=== PATIENT | female | born 1945 | race Caucasian/White ===

== ENCOUNTER → 2018-06-05 12:29 | Outpatient (CLI) | payer MEDICARE, OTHER, SELFPAY | PROVIDERS: Family Provider Family Medicine; PCP Family Medicine; Referring Provider Nurse Practitioner Adult Health; Visit Provider Nurse Practitioner Adult Health | DX: N39.0 Urinary tract infection, site not specified (principal) | CPT/HCPCS: 87086; 87088; 87186 ==

== ENCOUNTER → 2018-06-19 15:02 | Outpatient (CLI) | payer MEDICARE, OTHER, SELFPAY | PROVIDERS: Referring Provider Nurse Practitioner Adult Health; Visit Provider Nurse Practitioner Adult Health | DX: R10.9 Unspecified abdominal pain (principal); M54.9 Dorsalgia, unspecified | CPT/HCPCS: 87086; 87088 ==

== ENCOUNTER → 2018-08-02 09:15 | Outpatient (CLI) | payer MEDICARE, OTHER, SELFPAY ==
[2018-08-02 10:23] LABS: Hematocrit 44.5 % (37-47); Hemoglobin 14.6 g/dl (12.0-15.0); Mean Corp Hgb Conc 32.8 g/gl (32-36); Mean Corpuscular Hgb 28.1 pg (27.0-32.0); Mean Corpuscular Volume 85.7 fL (81-99); Mean Platelet Vol. 10.3 fl (6.2-12.0); Platelet Count 202 K/mm3 (150-450); RBC Distribution Width CV 12.8 % (11.6-14.6); RBC Distribution Width SD 40.2 fl (35.1-43.9); Red Blood Count 5.19 M/mm3 (4.2-5.4); White Blood Count 6.2 K/mm3 (4.4-11.0)
[2018-08-02 10:24] LABS: Scan Indicated on CBC? Y/N NO
[2018-08-02 10:36] LABS: International Normalized Ratio 1.7; Prothrombin Time (Protime)PT. 20.2 SECONDS (11.7-14.9)
[2018-08-02 10:58] LABS: ALB/GLOB Ratio 1.2 RATIO (0.9-2.4); AST(SGOT) 14 U/L (15-37); Alanine Aminotransfer ALT/SGPT 22 U/L (13-56); Albumin, Serum 3.7 g/dL (3.2-5.0); Alkaline Phosphatase 103 U/L (45-117); Anion Gap 9 (5-15); BUN 17 mg/dL (7-18); BUN/Creat Ratio 19.1 RATIO (10-20); Calcium,Total 8.9 mg/dL (8.5-10.1); Chloride 109 mmol/L (98-107); Cholesterol 180 mg/dL (200); Creatinine, Serum 0.89 mg/dL (0.55-1.02); EST Glomerular Filtration Rate 66 mL/min (>60); Est Glom Filt Rate - Afr Amer 80 mL/min (>60); Globulin 3.1 g/dL (2.2-4.2); Glucose 104 mg/dL (74-106); High Density Lipoprotein 48 mg/dL; Potassium 4.2 mmol/L (3.5-5.1); Protein, Total 6.8 g/dL (6.4-8.2); Sodium Level 144 mmol/L (136-145); Triglycerides 143 mg/dL; Very Low Density Lipoprotein 29 mg/dL (5-40)
[2018-08-02 10:59] LABS: Vitamin D,25 Hydroxy 21.3 ng/mL (29.95-100.01)
== END ==
PROVIDERS: Family Provider Family Medicine; PCP Family Medicine; Visit Provider Family Medicine
DX: I10 Essential (primary) hypertension (principal); I48.91 Unspecified atrial fibrillation
CPT/HCPCS: 36415; 80053; 80061; 82306; 85027; 85610

== ENCOUNTER → 2018-10-26 16:46 | Outpatient (CLI) | payer MEDICARE, OTHER, SELFPAY | PROVIDERS: Family Provider Family Medicine; PCP Family Medicine; Referring Provider Nurse Practitioner Adult Health; Visit Provider Nurse Practitioner Adult Health | DX: R31.9 Hematuria, unspecified (principal) | CPT/HCPCS: 87086; 87088 ==

== ENCOUNTER → 2018-11-08 | Outpatient (CLI) | payer MEDICARE, OTHER, SELFPAY ==
--- NOTE | 2018-11-08 17:10 | CT_ITS ---
STUDY: CT ABDOMEN AND PELVIS WITH AND WITHOUT CONTRAST REASON FOR EXAM: Female, 73 years old. Hematuria RADIATION DOSAGE (If Supplied By Facility): CTDIvol = ( 33.24 ) mGy, DLP = ( 3925.58 ) mGycm TECHNIQUE: Transaxial images were obtained from the dome of the diaphragm to the symphysis pubis without oral contrast. 100 IV Isovue 300 was administered. Sagittal and coronal images were reconstructed. Individualized dose optimization techniques were used for this CT. COMPARISON: None. FINDINGS: The visualized lung bases are unremarkable. The visualized portions of the heart are within normal limits. There is decreased attenuation of the liver consistent with steatosis. Multiple hepatic cysts, the largest in the left hepatic lobe measuring up to 6 cm. Normal gallbladder and extrahepatic biliary system. Normal spleen. Normal pancreas. Normal bilateral adrenal glands. Bilateral nonobstructing renal stones, the largest measuring up to 8 mm on the right. Subcentimeter right renal cyst. Normal visualized stomach. Normal small intestine. There are multiple colonic diverticula consistent with diverticulosis. The appendix is visualized and appears normal. Normal abdominal aorta. Normal inferior vena cava. Normal retroperitoneum. Normal urinary bladder. Normal abdominal wall. Right hip arthroplasty. Degenerative lumbar changes. CT/CT Abd/Pelvis W/WO Contrast IMPRESSION: No evidence of enhancing renal mass or acute obstructive uropathy. Nonobstructing bilateral renal stones and small right renal cyst. Electronically Signed: Iron Noriega MD at 8:49 EDT Tel , Service support ,
[2018-11-08 17:26] LABS: EGFR FINGERSTICK > 60.0000 mL/min (>60)
== END | disposition home or self-care (01) ==
LOC: CT 17:07
PROVIDERS: Family Provider Family Medicine; PCP Family Medicine; Referring Provider Nurse Practitioner Adult Health; Visit Provider Nurse Practitioner Adult Health
DX: R31.9 Hematuria, unspecified (principal)
CPT/HCPCS: 74178; Q9967

== ENCOUNTER → 2020-01-07 09:18 | Outpatient (CLI) | payer MEDICARE, OTHER, SELFPAY ==
--- NOTE | 2020-01-07 09:33 | RAD_ITS ---
STUDY: X-RAY - ABDOMEN/PELVIS REASON FOR EXAM: Female, 74 years old. BILAT KIDNEY STONE F/U, NO COMPLAINTS PER PT TECHNIQUE: Single AP view of the abdomen / pelvis. COMPARISON: Comparison is made with prior examination dated June 28, 2016. FINDINGS: Normal visualized lung bases. There is an unremarkable bowel gas pattern. There is a 6.6 mm calculus in the midportion of the right kidney. There is a 1.6 cm calculus in the lower pole calyx of the left kidney Several rounded calcifications are seen in the central portion of the pelvis. These may represent bladder stones. There are diffuse degenerative changes of the visualized lumbar spine. The patient is status post right total hip replacement. RAD/Abdomen Single View IMPRESSION: Bilateral intrarenal calculi more prominent on the left side. Findings suggestive of bladder calculi. Electronically Signed: Andrés Muse, at 10:06 EDT , Service support ,
[2020-01-07 10:39] LABS: Anion Gap 5 (5-15); BUN 19 mg/dL (7-18); BUN/Creat Ratio 21.2 RATIO (10-20); Calcium,Total 9.2 mg/dL (8.5-10.1); Chloride 108 mmol/L (98-107); EST Glomerular Filtration Rate 66 mL/min (>60); Est Glom Filt Rate - Afr Amer 79 mL/min (>60); Glucose 99 mg/dL (74-106); Potassium 3.9 mmol/L (3.5-5.1); Sodium Level 142 mmol/L (136-145)
== END ==
PROVIDERS: PCP Family Medicine; Referring Provider Nurse Practitioner Adult Health; Visit Provider Nurse Practitioner Adult Health
DX: N20.9 Urinary calculus, unspecified (principal)
CPT/HCPCS: 36415; 74018; 80048

== ENCOUNTER → 2020-08-12 10:17 | Outpatient (CLI) | payer MEDICARE, OTHER, SELFPAY ==
[2020-08-12 12:34] LABS: Anion Gap 3 (5-15); BUN 18 mg/dL (7-18); BUN/Creat Ratio 17.6 RATIO (10-20); Calcium,Total 9.3 mg/dL (8.5-10.1); Chloride 107 mmol/L (98-107); Cholesterol 165 mg/dL (200); Creatinine, Serum 1.02 mg/dL (0.55-1.02); EST Glomerular Filtration Rate 56 mL/min (>60); Est Glom Filt Rate - Afr Amer 68 mL/min (>60); Glucose 102 mg/dL (74-106); High Density Lipoprotein 63 mg/dL; Potassium 4.4 mmol/L (3.5-5.1); Sodium Level 142 mmol/L (136-145); Triglycerides 75 mg/dL; Very Low Density Lipoprotein 15 mg/dL (5-40)
[2020-08-12 12:36] LABS: Vitamin D,25 Hydroxy 31.5 ng/mL
== END ==
PROVIDERS: PCP Family Medicine; Referring Provider Family Medicine; Visit Provider Family Medicine
DX: E78.5 Hyperlipidemia, unspecified (principal); E66.9 Obesity, unspecified
CPT/HCPCS: 36415; 80048; 80061; 82306

== ENCOUNTER → 2020-09-02 11:45 | Outpatient (CLI) | payer MEDICARE, OTHER, SELFPAY ==
--- NOTE | 2020-09-02 | BRBX_PTH ---
PATIENT: HOLLI SEVILLA [facility] U#:[id number] AGE/SX: 80/F ROOM: RE09/02/[address]: Dr. Sarita Johnson MD : 1945 BED: DIS: SPEC #: [id number] RECD: 09/02/20 12:33 STATUS: JOBY REJossy #: [id number] ALLEN: 09/02/20 00:[address]: Sarita Johnson DEPT: SURGICAL PATHOLOGY RECD BY: Jose F Morales ENTERED: 09/02/20 12:34 SP TYPE: BREAST BX OTHR DR: Dr. Meliton Lindsey MD Tissues: Right breast, NOS Procedures: Surgery Specimen Level IV HEADER OPERATION: Right breast biopsy PRE-OP DIAGNOSIS: Right breast mass TISSUE SUBMITTED: Right breast FIXATION TIME: 10 hours MICROSCOPIC DIAGNOSIS Right breast, core biopsy: Invasive ductal carcinoma with the following characteristics: Maximal length - 4.6 millimeters Nuclear grade - 1/3 See comment. AM:cecilio 09/03/2020 COMMENT ER/IN/Wct9qzb studies are being performed on sections of tumor and the results from this study will be reported separately ([id number]). MICROSCOPIC DESCRIPTION Slides are reviewed. GROSS DESCRIPTION Received in fixative is one container labeled with the patient's name and designated right breast mass. The specimen consists of multiple irregular and elongated fragments of light english soft tissue that in aggregate measure 2 x 1 x 0.1 cm. The specimen is totally submitted in one cassette. / AM:cecilio 09/02/20 TC:0 CPT: 47193
--- NOTE | 2020-09-02 | IMM_PTH ---
PATIENT: HOLLI SEVILLA LOC: [facility] U#:[id number] AGE/SX: 80/F ROOM: RE09/02/[address]: Dr. Sarita Johnson MD : 1945 BED: DIS: SPEC #: [id number] RECD: 09/03/20 10:38 STATUS: JOBY REQ #: [id number] ALLEN: 09/02/20 00:[address]: Sarita Johnson DEPT: IMMUNOHISTOCHEMISTRY RECD BY: Yamilet Butterfield ENTERED: 09/03/20 10:39 SP TYPE: IMMUNO OTHR DR: Dr. Meliton Lindsey MD Tissues: Right breast, NOS Procedures: CALPONIN-1 (add) CK5-6 (add) CK8 (add) HATHAWAY-2 (add) E-CAD (add) HER2 MENDEL (add) KI-67 (add) P53 (add) DE (add) P40 (add) ER (initial) PHYSICIAN & INSTITUTION [address] [address] SPECIMEN INFORMATION: Tissue Source: Right breast Clinical Info: Right breast mass Specimen Number: [id number] CPT code: 12082, 55946 x7, 25765 x3 METHODOLOGY: Deparaffinized sections of prefer/formalin-fixed tissue or PAP/DQ stained slides are incubated with monoclonal/polyclonal antibodies/oligonucleotide probes. Localization is made via biotin free immunoperoxidase method. Appropriate controls are performed and reacted as expected. Results on target cell population are indicated in the following table: RESULTS: ANTIBODY / CLONE RESULT P53 (DO-7) negative Ki-67 (30-9) positive, low CK8 (01jtbbY01) positive CK5-6 (D5 & 1684) negative Calponin-1 (JY664J) negative P40 (BC28) negative E-Cad (ECH-6) positive HATHAWAY-2 (SP21) positive MORPHOMETRIC ANALYSIS ER (clone 6F11) >95%, strong intensity DE (clone 16/1E2) >95%, strong intensity Her-2Neu (clone CB11) 0 The prognostic test for HER2 is performed on formalin-fixed paraffin embedded tissue. A 3+ (positive) staining pattern is defined as intense, homogeneous, complete, circumferential membranous staining in >10% of contiguous tumor cells. A similar weak (2+) staining pattern is interpreted as equivocal. VILMA follow-up testing is recommended for all equivocal cases. Positivity/negativity for ER/DE is reported if > or < 1% of the tumor cells are immuno- reactive, respectively. The ASCO/CAP criteria is used for scoring. Reference: Journal of Clinical Oncology, 2013; 31:4240-9251 & 2010; 16:3202-2974. Duration of fixation: 10 Hrs; Sample Adequate: Yes. These assays have not been validated on decalcified tissues. Results should be interpreted with caution given the likelihood of false negativity on decalcified specimens. These tests were developed and their performance characteristics determined by [facility]. They may not have been cleared or approved by the U.S. Food and Drug Administration. The FDA has determined that such clearance or approval is not necessary. The above immunohistochemical/dualISH markers are ordered and reviewed by the Pathologist. INTERPRETATION: Right breast, core biopsy: Invasive ductal carcinoma, nuclear grade 1. Positive for estrogen receptors (favorable prognostic indicator). Positive for progesterone receptors (favorable prognostic indicator). Negative for overexpression of KYZ7glh. AM:cecilio 09/04/2020
== END ==
PROVIDERS: PCP Family Medicine; Referring Provider Surgery; Visit Provider Surgery
DX: R89.7 Abnormal histological findings in specimens from other organs, systems and tissues (principal)
CPT/HCPCS: 88305; 88341; 88342

== ENCOUNTER 2020-09-18 07:18 | Day surgery (SDC) | payer MEDICARE, OTHER, SELFPAY ==
[2020-08-27 14:28] VITALS: BMI 30.8
[2020-09-11 14:08] VITALS: BMI 31.0
[2020-09-18] VITALS (7 sets, daily range): BP systolic 113–130; BP diastolic 59–78; PULSE 61–68; RESP 16–18; TEMP 36.3–36.6; O2SAT 97–99; BMI 30.3
--- NOTE | 2020-09-18 | AXNB_PTH ---
PATIENT: HOLLI SEVILLA LOC: [facility] U#:[id number] AGE/SX: 75/F ROOM: RE09/18/[address]: Dr. Sarita Johnson MD : 1945 BED: DIS: 09/18/2020 SPEC #: [id number] RECD: 09/18/20 11:34 STATUS: JOBY REJossy #: [id number] ALLEN: 09/18/20 00:[address]: Sarita Johnson DEPT: SURGICAL PATHOLOGY RECD BY: Yamilet Butterfield ENTERED: 09/18/20 12:01 SP TYPE: AX NODE BX OTHR DR: Dr. Meliton Lindsey MD Tissues: A - Axillary lymph node, NOS B - Right breast, NOS C - Right breast, NOS Procedures: Frozen Section (charge) Frozen Section Add'l ([facility]) Surgery Specimen Level IV Surgery Specimen Level V HEADER OPERATION: Right breast stereotactic wire localization lumpectomy with sentinel node biopsy PRE-OP DIAGNOSIS: Invasive ductal carcinoma right breast TISSUE SUBMITTED: A - Axillary sentinel lymph nodes right breast, FS at 1131, B - Right breast lumpectomy with wire, double short stitch - superior, double long - medial, long single- lateral, C??Additional anterior margin right breast, short stitch - new anterior margin, long stitch - lateral part of specimen FROZEN SECTION DIAGNOSIS A. Right axillary sentinel lymph nodes, biopsy: Two out of two lymph nodes negative for carcinoma. AM: 09/18/2020 MICROSCOPIC DIAGNOSIS A. Right axillary sentinel lymph nodes, biopsy: Two out of two lymph nodes negative for carcinoma. See comment. B. Right breast, lumpectomy: Invasive ductal carcinoma. See cancer checklist below. See comment. C. Additional anterior margin, biopsy: Ductal carcinoma in situ. See comment. AM: 09/23/2020 COMMENT A. Immunohistochemistry ([id number]) supports the above diagnosis. B. Immunohistochemistry ([id number]) supports the above diagnosis. C. Sections show ductal carcinoma in situ located at 1.5 mm from its new anterior margin. Atypical intraductal hyperplasia suspicious for ductal carcinoma in situ is noted at the new anterior margin (block 1 toward lateral margin). This area of extension to the margin measures approximately 1 mm in greatest dimension. INVASIVE BREAST CANCER SUMMARY: Procedure: Lumpectomy excision with wire guidance Specimen: Type: Partial breast, lumpectomy. Size: 7 x 4 x 2 cm Site: Right breast Invasive Tumor: Size of tumor: 0.5 x 0.5 x 0.5 cm Histologic type: Invasive ductal carcinoma. Focality: Single focus of carcinoma Histologic grade (Luca grade): Glandular/tubular differentiation score: 2 Nuclear pleomorphism score: 2 Mitotic count score: 1 Overall grade: 1 (score of 5) Ductal Carcinoma In Situ: Present Estimated quantification: 25% Number of blocks: 6 blocks (inclusive of specimens B & C) Architectural pattern: Cribriform and comedo types Nuclear grade: 2 Necrosis: Present Lobular Carcinoma In Situ: Not present Tumor extension: Skin: No skin present Nipple: No nipple present. Skeletal muscle: Not present Margins: Distance of Invasive Carcinoma from closest margin: 0.5 cm from anterior margin Distance of in situ carcinoma from closest margin: 1.5 mm from anterior margin (specimen C) Lymph Nodes: Total number of lymph nodes examined: 2 Total number of sentinel lymph nodes examined: 2 No evidence of macrometastases, micrometastases or isolated tumor cells. Additional pathologic findings: Changes of previous biopsy. Usual intraductal hyperplasia with multifocal atypical intraductal hyperplasia. Focal atypical lobular hyperplasia. Fibrocystic change. Ancillary Studies: Previously performed on same tumor ([id number] / [id number]) ER: Positive (>95%, strong intensity) AK: Positive (>95%, strong intensity) Ela1uhb: Negative (0) Microcalcifications: Present in neoplastic and non-neoplastic tissue. Clinical History: Mass PATHOLOGIC STAGE: T1a N0(sn) Mx The above summary is in compliance with [employer] (CAP) Cancer Protocols Checklist and [place] Joint Committee on Cancer (AJCC), Staging Manual, 8th Ed. This case was reviewed and diagnosis discussed with Dr. Johnson on 09/26/[address] Huber. Case has been reviewed in consultation with Dr. Huber who concurs with the above diagnosis. IDC:SJ MICROSCOPIC DESCRIPTION Slides are reviewed. GROSS DESCRIPTION A - Received fresh for frozen section diagnosis labeled with the patient's name is a specimen designated axillary sentinel lymph node right breast. The specimen consists of two pieces of english-yellow fibroadipose tissue measuring 1.5 and 2.3 cm in greatest dimension. Two lymph nodes are identified. Both lymph nodes are bisected and submitted entirely for frozen section diagnosis in two cassettes. Sections are submitted after additional fixation. / AM:cecilio 09/19/20 B - Received fresh for intraoperative consultation labeled with the patient's name is a specimen designated lumpectomy with wire localization right breast. The specimen consists of a piece of fibroadipose tissue with needle localization measuring 7 x 4 x 2 cm. The specimen is oriented as follows: double short stitch - superior, double long - medial, long single- lateral. The specimen is inked as follows: anterior - yellow, posterior - black, superior - blue, inferior - green, medial - red and lateral - orange. Serial sections reveal a small indurated mass measuring 0.5 x 0.5 x 0.5 cm. This mass is 0.5 cm away from the closest anterior margin and 1 cm away from the second closest inferior margin. This information is conveyed to the surgeon intraoperatively. Sections of the rest of the specimen reveal english-yellow adipose cut surfaces mixed with scant fibrous area. Mosaic Worker sections are submitted in ten cassettes as follows: 1 - perpendicular medial, lateral and posterior margins, 2 - perpendicular superior and inferior margins, 3-6 - entire tumor with closest anterior margin, 7-10 - Mosaic Worker sections away from the tumor. The entire tumor is submitted. Sections are submitted after additional fixation. About 90% of the specimen is submitted. / SJ:cecilio 09/19/20 C - Received in fixative is one container labeled with the patient's name and designated additional anterior margin right breast. The specimen consists of a piece of adipose tissue measuring 3 x 2.5 x 0.7 cm. The specimen is oriented by two sutures, short suture - new anterior margin, long suture - lateral margin. The specimen is inked as follows: new anterior margin - black, old margin - blue, lateral portion - orange, medial portion - red. The specimen is serially sectioned and does not reveal any mass lesion. The entire specimen is submitted in three cassettes. Cassette 1 contains the most lateral portion of the specimen and cassette 3 contains the most medial portion of the specimen. Sections are submitted after additional fixation. / SJ:cecilio 09/19/20 TC:0 CPT: 95895 x2, 32307, 71753, 88167
--- NOTE | 2020-09-18 | IMM_PTH ---
PATIENT: HOLLI SEVILLA LOC: [facility] [place] U#:[id number] AGE/SX: 75/F ROOM: RE09/18/[address]: Dr. Sarita Johnson MD : 1945 BED: DIS: 09/18/2020 SPEC #: [id number] RECD: 09/23/20 11:12 STATUS: JOBY REQ #: [id number] ALLEN: 09/18/20 00:[address]: Sarita Johnson DEPT: IMMUNOHISTOCHEMISTRY RECD BY: Yamilet Butterfield ENTERED: 09/23/20 11:14 SP TYPE: IMMUNO OTHR DR: Dr. Meliton Lindsey MD Tissues: A - Axillary lymph node, NOS B - Right breast, NOS Procedures: E-CAD (initial) CK7 (add) E-CAD (add) Pankeratin (add) CK7 (initial) PHYSICIAN & INSTITUTION [place] [address] SPECIMEN INFORMATION: Tissue Source: A - Right axillary sentinel lymph nodes, B - Right breast Clinical Info: Invasive ductal carcinoma right breast Specimen Number: [id number] A1, A2, B7, B8 CPT code: 46695 x2, 55591 x4 METHODOLOGY: Deparaffinized sections of prefer/formalin-fixed tissue or PAP/DQ stained slides are incubated with monoclonal/polyclonal antibodies/oligonucleotide probes. Localization is made via biotin free immunoperoxidase method. Appropriate controls are performed and reacted as expected. Results on target cell population are indicated in the following table: RESULTS: ANTIBODY / CLONE RESULT Block A1 CK7 (OV-TL12/30) negative AE1-3 (AE1/AE3/PCK26) negative Block A2 CK7 (OV-TL12/30) negative AE1-3 (AE1/AE3/PCK26) negative Block B7 E-Cad (ECH-6) negative Block B8 E-Cad (ECH-6) negative These tests were developed and their performance characteristics determined by [facility]. They may not have been cleared or approved by the U.S. Food and Drug Administration. The FDA has determined that such clearance or approval is not necessary. The above immunohistochemical/dualISH markers are ordered and reviewed by the Pathologist. INTERPRETATION: A. Right axillary sentinel lymph nodes, biopsy: Two out of two lymph nodes negative for carcinoma. B. Right breast, lumpectomy: Invasive ductal carcinoma. Focal atypical lobular hyperplasia. Ductal carcinoma in situ. AM:cecilio 09/24/2020
--- NOTE | 2020-09-18 07:44 | HP_ITS ---
Intake Intake Visit Reasons: Discuss Surgery Chief Complaint: Discuss breast biopsy results/surgery Industrial Ecology Technician Required: No Is patient in pain?: No Allergies ciprofloxacin Allergy (Unknown, Verified 09/08/20 12:27) unknown Sulfa (Sulfonamide Antibiotics) Allergy (Unknown, Verified 09/08/20 12:27) unknown Medications ascorbic acid (vitamin C) 1,000 mg tablet 1 g PO Q6H 08/27/20 [History Confirmed 09/08/20] calcium-magnesium 300 mg-300 mg tablet 1 tab PO DAILY 08/27/20 [History Confirmed 09/08/20] cholecalciferol (vitamin D3) 25 mcg (1,000 unit) capsule 25 mcg PO DAILY 08/27/20 [History Confirmed 09/08/20] diltiazem HCl 240 mg capsule,extended release 24 hr, controlled 240 mg PO DAILY cap 08/27/20 [History Confirmed 09/08/20] glucosamine HCl 500 mg tablet 500 mg PO DAILY 08/27/20 [History Confirmed 09/08/20] methenamine hippurate 1 gram tablet 1 g PO BID tab 08/27/20 [History Confirmed 09/08/20] nitrofurantoin monohydrate/macrocrystals 100 mg capsule 100 mg PO ONCE cap 08/27/20 [History Confirmed 09/08/20] omega-3 fatty acids 500 mg capsule 500 mg PO DAILY 08/27/20 [History Confirmed 09/08/20] pravastatin 80 mg tablet 80 mg PO DAILY tab 08/27/20 [History Confirmed 09/08/20] sertraline 50 mg tablet 50 mg PO DAILY tab 08/27/20 [History Confirmed 09/08/20] sucralfate 1 gram tablet 1 g PO QACHS tab 08/27/20 [History Confirmed 09/08/20] trazodone 50 mg tablet 50 mg PO QHS tab 08/27/20 [History Confirmed 09/08/20] warfarin 2 mg tablet 2 mg PO DAILY tab 08/27/20 [History Confirmed 09/08/20] [facility], LAT[facility] Medical History (Updated 09/08/20 @ 14:[address] Sarita Johnson MD) Abnormal mammogram of right breast (Acute) Arthritis (Acute) Gastritis (Acute) Hyperlipidemia (Acute) Afib (Acute) Chronic insomnia (Chronic) Cystitis (Acute) Coronary artery dilation (Acute) Depression (Acute) Hypertension (Chronic) Breast cancer, right (Acute) Surgical History (Updated 09/08/20 @ 12:26 by Angely Castano) Hx of breast biopsy (Acute) History of hip replacement, total (Acute) Hx of cataract extraction (Acute) Hx of cholecystectomy (Acute) History of right breast biopsy (Acute ~09/02/20) Family History Mother Hypertension Afib Sister Afib Hypertension Social History (Updated 09/08/20 @ 14:[address] Sarita Johnson MD) Smoking Status: Never smoker second hand exposure: No alcohol intake: current alcohol intake frequency: a few times a month Alcohol type: wine substance use type: does not use diet: Weight Watchers caffeine: Yes what type of physical activity do you participate in: swimming, aerobics frequency: other HPI HPI HPI: HOLLI SEVILLA, is a 75 F who presents to the office today for HPI HPI Surgical H&P: Yes HPI: HOLLI SEVILLA, is a 75 F who presents to the office today for discussion of right breast biopsy pathology. Biopsy results showed invasive ductal carcinoma, grade 1/3, ER/IA greater than 95%, HER-2/sonu negative. Patient denies any pain or bleeding at biopsy site. Patient does have some resolving ecchymosis. ROS General General: Yes weight change; no fatigue, colon cancer, breast cancer or weakness HEENT HEENT: No difficulty swallowing, eye injury, eye surgery, swollen glands or hoarseness Endo Endocrine: No thyroid disease, diabetes mellitus, thyroid cancer, Hair loss, heat intolerance or cold intolerance Breast Breast: Yes right breast lump, abnormal mammogram and abnormal US Musc Musculoskeletal: Yes arthritis; no back problems, rheumatoid arthritis, gout or joint pain Cardio Cardiovascular: Yes atrial fibrillation; no pacemaker, heart disease, high blood pressure, heart attack, heart stent, palpitations, shortness of breat with exertion or chest pain Psych Psychiatric: No depression, anxiety or hearing voices Resp Respiratory: No shortness of breath, No sleep apnea, No cough, No COPD, No asthma, No emphysema, No wheezing Gastro Gastrointestinal: No abdominal pain, No nausea or vomiting, No diarrhea, No constipation, No blood in stool, No acid reflux, No hemorrhoids, No ulcers, No gallbladder problem, No black,tarry stools Thomas Hematologic: Yes blood thinners, No blood disorders, No bleeding, No anemia, No blood clots Neuro Neurologic: No system reviewed and no additional complaints, except as docu, No as per HPI, No abnormal walking, No abnormal hearing, No abnormal movements, No abnormal speech, No behavioral changes, No burning sensations, No confusion, No seizure-like activity, No unsteadiness, No dizziness, No localized weakness, No frequent falls, No headache(s), No lack of coordination, No loss of vision, No memory loss, No numbness, No other visual disturbances, No radiating pain, No restless legs, No sensory deficit, No fainting, No tingling, No tremor(s), No weakness, No other Exam Const General: cooperative, comfortable, no acute distress Chest Other: Right breast: Biopsy incisions healing well with Steri's, ecchymosis resolving, protuberant lesion on right nipple (been there for years per patient) Assessment & Plan Problems 1. 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 I have given the patient options for initial surgical treatment. Options are the following: lumpectomy followed by radiation therapy vs. mastectomy vs. mastectomy followed by immediate reconstruction. I have described the procedures to the patient. I have described the advantages and disadvantages of the options, but I have told the patient that among the options, the survival rate for breast cancer is the same. I have told the patient that with all the surgeries that a sentinel lymph node biopsy is required. I have described the procedure of sentinel lymph node biopsy to the patient. I have told the patient that if the biopsy is positive for metastatic disease, then a full axillary lymph node dissection is required. I have told the patient that adjuvant chemotherapy will be required should the lymph nodes reveal metastatic disease. Also, a full lymph node dissection will increase the risk for lymphedema, especially if there are 4 or more lymph nodes positive for metastatic disease and radiation to the axilla is also required. I have told the patient the risks of surgery, including but not limited to: infection, bleeding, scar tissue, seroma and persistent seroma, lymph leak, injury to any blood vessels, injury to any nerves (particularly the long thoracic, the thoracodorsal, and the second intercostal brachial and the resultant sequelae), lymphedema, cosmetic deformity, dysesthesias, wound infections, further surgery (especially if margins are not clear), complications of anesthesia, etc. the patient understands. Pt is planning on a right lumpectomy with stereotactic needle localization, sentinel lymph node biopsy, possible axillary lymph node dissection. Patient will meet with radiation oncology to make sure she understands what radiation entails. Tentatively scheduling for September 18 I have answered all the patient?s questions at this point to her satisfaction and she has no further questions. Greater than 50% of direct patient contact was spent in counseling or coordination of care. I spent 25 minutes counseling the patient on surgical options for treatment and coordinating care. Sarita Johnson M.D. Pager: [phone] [facility] [address] [place] [address], [address] [place] [id number] Office: [phone] p Orders Referrals: Oncology C50.919 Plan Detail Follow Up Patient will let us know after meeting with radiation oncology if she is still would like to have a lumpectomy. 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 delaying the surgery/procedure. It is not possible to know either the risk of delaying the surgery or procedure or chance of getting an infection with perfect accuracy, but a joint decision was made between the patient and the surgeon/proceduralist ?to proceed at this time with the scheduled surgery/procedure as indicated on the consent form. I have examined the patient the following changes are noted: Patient did meet with radiation oncology and want to proceed with the lumpectomy. No other changes.
[2020-09-18] MEDS: Lactated Ringers 1,000 ML 100 ML IV (08:00)
--- NOTE | 2020-09-18 08:00 | NM_ITS ---
PROCEDURE: NUCLEAR MEDICINE Injection Manly Node - RIGHT breast(s). REASON FOR EXAM: Female, 75 years old. Right breast cancer. TECHNIQUE: Manly node localization using radionuclide methods of the RIGHT breast(s) was performed following intravenous administration of 1.1 mCi of of sulfur colloid Tc-99m. FINDINGS: 1.1 mCi of technetium labeled sulfur colloid was injected subcutaneously at the biopsy site in the right breast. NM/Lymph Node Injection Only IMPRESSION: Subcutaneous injection of 1.1 mCi of technetium labeled sulfur colloid at the biopsy site. Electronically Signed: Andrés Muse MD at 9:03 EST , Service support ,
--- NOTE | 2020-09-18 09:30 | BI_ITS ---
SURGICAL BREAST SPECIMEN RADIOGRAPH CLINICAL: Document presence of tissue clip marker in biopsy specimen. FINDINGS: Specimen shows presence of tissue clip marker. Electronically Signed: Andrés Muse MD at 13:05 EST , Service support , BI/Breast Biopsy Specimen
[2020-09-18] MEDS: Bupiv/Epi 0.25% 30 ML Vial ×2 (09:36→12:30)
[2020-09-18] MEDS: Isosulfan Blue 1% 5 ML Vial ×2 (09:47→10:36)
[2020-09-18] MEDS: Cefazolin 2 GM in 0.9% Normal Saline 100 ML IV (10:25)
--- NOTE | 2020-09-18 12:28 | PCM.OPRPT ---
Report of Operation Date of Procedure: 09/18/20 Pre-Operative Diagnosis: Right breast cancer Post-Operative Diagnosis: Same Surgery/Procedure Performed:: 1. Stereotactic needle localization right breast lumpectomy, sentinel lymph node biopsy with nuclear tracer and blue dye. Type of Anesthesia:: General/Supplemental Anesthesiologist: Kofi Del Toro Special Medications: ancef 2gm IV x1 Specimen's removed: 1. Right sentinel lymph nodes?(2 - on frozen), 2. right partial mastectomy, 3. Additional anterior margin Estimated Blood Loss (mL): 10 cc Fluids Replaced: 700 cc Description of Procedure: Patient was prone on the stereotactic biopsy table. Clip was localized. Additional 15 degree views were completed. The clip was localized. The Bard wire was placed additional view showed the wire to be in good location with clip. Needle was removed and wire advanced. Preoperative 2 view mammography was completed. Patient tolerated procedure well. In radiology the breast tissue was injected with TC-9 9 sulfur colloid and preoperative needle localization. >90 minutes later the patient was taken to the operating room and general anesthesia was induced. Localization studies were reviewed. 5 cc of Lymphazurin 1% blue dye was injected in the 4 quadrants periareolar along with 10 cc of normal saline. This was massaged gently for 5 minutes. The right breast and axilla were prepped and draped in usual sterile fashion. A timeout was completed verifying correct patient, procedure, site, positioning, special equipment prior to beginning procedure. Handheld gamma probe was used to identify the location of the hottest spot in the axilla. Prior to the incision, the counts were 0. The incision was made in the blue node was identified. The probe was placed in contact with the node in the 10 count was 3. The bed of the node measured 0 counts. No additional blue or hot nodes were detected. By comparing localization studies with the direction and skin entry of the needle, the probable trajectory and location of the mass was visualized. A curvilinear incision was planned in such a way as to minimize the amount of dissection to reach the mass. Flaps were raised in the location of the wire confirmed. The wire was delivered into the wound. 2 silk [id number] stay suture was placed around the wire and used for traction. Dissection was then taken down circumferentially, taking care to include the entire localization needle and wide margin of grossly normal tissue. The specimen and entire localizing wire were removed. The specimen was oriented and sent to radiology with the localization studies. Confirmation was received that the entire target lesion had been resected. Additional anterior margin was taken. 4 medium clips were placed marking the base of the cavity to help localize for radiation. The wound was irrigated. Hemostasis was checked. The breast and axillary wounds were closed with interrupted sutures of 3-0 Vicryl and subcuticular sutures of 4-0 Monocryl. No attempt was made to close the space. A dressing of fluff gauze and supportive bra placed. The patient tolerated procedure well was taken to the postanesthesia care in stable condition. - Complications none
--- NOTE | 2020-09-18 12:47 | DCINST_ITS ---
Discharge Diet: Light diet - advance as tolerated Discharge Activity: May not drive while taking narcotic pain medications. May shower in (days): 1 Lifting Restrictions: no lifting >15 lb w right arm x 1 week Additional Activity Instructions:: Wear compression bra at night for the first couple nights and during the day for the first week. Call your doctor if your incision/area has: Continuous Slow Oozing, Sudden Increased Bleeding, Increased Pain/ Swelling, Increased Redness, Foul Smelling Discharge, Swelling at the incision site Allergies/Adverse Reactions: Allergies ciprofloxacin Allergy (Unknown, Verified 09/18/20 07:58) unknown Sulfa (Sulfonamide Antibiotics) Allergy (Unknown, Verified 09/18/20 07:58) unknown Medications to take at Discharge ascorbic acid (vitamin C) 1,000 mg tablet 1 g PO BID 08/27/20 cholecalciferol (vitamin D3) 25 mcg (1,000 unit) capsule 25 mcg PO DAILY 08/27/20 diltiazem HCl 240 mg capsule,extended release 24 hr, controlled 240 mg PO DAILY cap 08/27/20 methenamine hippurate 1 gram tablet 1 g PO BID tab 08/27/20 nitrofurantoin monohydrate/macrocrystals 100 mg capsule 100 mg PO ONCE cap 08/27/20 omega-3 fatty acids 500 mg capsule 500 mg PO DAILY 08/27/20 pravastatin 80 mg tablet 80 mg PO DAILY tab 08/27/20 sertraline 50 mg tablet 50 mg PO DAILY tab 08/27/20 trazodone 50 mg tablet 50 mg PO QHS tab 08/27/20 warfarin 2 mg tablet 2 mg PO DAILY tab 08/27/20 Magnesium 500 mg PO DAILY 09/15/20 Multivitamin 1 ea PO DAILY 09/15/20 Hydrocodone Bitart/Apap 5-325 [[place] 5MG-325MG] 1 tab PO Q6H PRN PRN 4 Days #10 tab 09/18/20 The following prescriptions were given: Hydrocodone Bitart/Apap 5-325 [[place] 5MG-325MG] 1 tab PO Q6H PRN PRN 4 Days #10 tab PRN Reason: Pain Transmission Status: Received by [facility] Primary Care Physician: Meliton Lindsey MD [Primary Care Provider] - Test Results: Test results from this visit will be discussed in further detail at your follow- up appointment, if applicable. Please Follow Up With: Sarita Johnson MD - After 5 PM and on weekends call [phone] with any concerns When: Call the office for a follow-up appointment in 2 weeks. Proposed Discharge Date: 09/18/20
[2020-09-18] MEDS: HYDROcodone Bitartrate/Apap 5/325 Tablet PO (14:45)
[2020-09-19 12:02] LABS: Prothrombin Time Fingerstick 10.9 SEC (11.9-14.4)
== END 2020-09-18 15:32 | disposition home or self-care (01) ==
LOC: SDC 07:19 → AC 07:19
PROVIDERS: PCP Family Medicine; Referring Provider Surgery; Visit Provider Surgery
PROC: 0HBV0ZZ Excision of Bilateral Breast, Open Approach (ICD-10-PCS; CPT 19302; principal; 2020-09-18 10:45)
DX: C50.911 Malignant neoplasm of unspecified site of right female breast (principal); M19.90 Unspecified osteoarthritis, unspecified site; I10 Essential (primary) hypertension; F32.9 Major depressive disorder, single episode, unspecified; I48.91 Unspecified atrial fibrillation; E78.5 Hyperlipidemia, unspecified; Z20.828 Contact with and (suspected) exposure to other viral communicable diseases; Z79.899 Other long term (current) drug therapy; Z79.01 Long term (current) use of anticoagulants
CPT/HCPCS: 19301; 38525; 19281; 36416; 38792; 76098; 85610; 87426; 88305; 88307; 88331; 88332; 88341; 88342; A9541; C9803; J7120; Q9968

== ENCOUNTER 2020-10-02 05:31 | Day surgery (SDC) | payer MEDICARE, OTHER, SELFPAY ==
[2020-09-11 14:08] VITALS: BMI 31.0
[2020-09-18 07:59] VITALS: BMI 30.3
[2020-10-02] MEDS: Lactated Ringers 1,000 ML 100 ML IV (06:20)
[2020-10-02 06:22] VITALS: BP 106/71; PULSE 63; RESP 18; TEMP 36.3; O2SAT 98; BMI 30.6
[2020-10-02] MEDS: Cefazolin 2 GM in 0.9% Normal Saline 100 ML IV (07:16)
[2020-10-02] MEDS: Bupiv/Epi 0.25% 30 ML Vial (07:30)
--- NOTE | 2020-10-02 07:30 | BR_PTH ---
PATIENT: HOLLI SEVILLA LOC: [facility] [place] U#:[id number] AGE/SX: 75/F ROOM: RE10/02/[address]: Dr. Sarita Johnson MD : 1945 BED: DIS: 10/02/2020 SPEC #: [id number] RECD: 10/02/20 09:03 STATUS: JOBY REJossy #: [id number] ALLEN: 10/02/20 07:[address]: Sarita Johnson DEPT: SURGICAL PATHOLOGY RECD BY: Yanni Yousif ENTERED: 10/02/20 10:40 SP TYPE: MAMOPLASTY OTHR DR: Dr. Meliton Lindsey MD Tissues: Right breast, NOS Procedures: Surgery Specimen Level V HEADER OPERATION: Re-excision for margins, breast lumpectomy PRE-OP DIAGNOSIS: Plan to re-excise to anterior margin due to DCIS within 1.5 mm TISSUE SUBMITTED: Right breast tissue new margins, short stitch baer new anterior margin, long stitch lateral MICROSCOPIC DIAGNOSIS Right breast, lumpectomy: Changes of previous biopsy. Focal fibrocystic change. Focal intraductal hyperplasia without atypia. Banal microcalcifications. No evidence of malignancy. AM:cecilio 10/06/2020 COMMENT Case has been reviewed in consultation with Dr. Huber who concurs with the above diagnosis. LEE ANN:ANETTE MICROSCOPIC DESCRIPTION Slides are reviewed. GROSS DESCRIPTION Received in fixative is one container labeled with the patient's name and designated right breast tissue new margin. The specimen consists of a piece of adipose tissue measuring 4 x 2 cm and up to 0.7 cm in thickness. The specimen is oriented as follows: Short stitch - new margin and long stitch - lateral. The new margin is inked black, old margin is inked blue, lateral margin is inked orange and medial margin is inked red. The specimen is serially sectioned and submitted entirely in three cassettes from one end to another. Cassette 1 contains the most lateral portion, cassette 3 contains the most medial portion. Sections are submitted after additional fixation. / SJ:cecilio 10/02/2020 TC:3 CPT: 28337
--- NOTE | 2020-10-02 07:57 | PCM.OPRPT ---
Report of Operation Date of Procedure: 10/02/20 Pre-Operative Diagnosis: Right breast cancer Post-Operative Diagnosis: Same Surgery/Procedure Performed:: Right lumpectomy, reexcision of anterior margin engine test cell technician: bro - TORI miguel Type of Anesthesia:: Local MAC Anesthesiologist: Davian Walker Special Medications: Ancef 2 g IV x1 Specimen's removed: New anterior margin right breast Estimated Blood Loss (mL): < 10 cc Fluids Replaced: Per anesthesia Description of Procedure: Patient was brought to the operating room placed supine on the operating table. Timeout was completed verifying correct patient, procedure, site, positioning, special equipment prior to beginning procedure. MAC anesthesia was induced. The right breast prepped and draped in usual sterile fashion. 0.25% Marcaine was used for local anesthesia. This was infiltrated at her previous incision site. Previous incision was reexcised with a 15 blade scalpel. The seroma cavity was suction. Allis was used to wrap the anterior margin. Electrocautery was used to excise the anterior margin. This was marked with a silk suture short for new anterior margin and long for lateral. Hemostasis was achieved. No attempt was made to close the space. Incision was closed with 3-0 Vicryl interrupted sutures subdermally and running 4-0 Monocryl. Dermabond was placed on the skin. Surgical bra and fluffs were placed. Tolerated procedure well was taken to the PACU in stable condition. - Complications none
--- NOTE | 2020-10-02 08:01 | DCINST_ITS ---
Discharge Diet: Light diet - advance as tolerated Discharge Activity: May not drive while taking narcotic pain medications. May shower in (days): 1 Lifting Restrictions: no lifting > 15lb on right x 1 week Call your doctor if your incision/area has: Continuous Slow Oozing, Sudden Increased Bleeding, Increased Pain/ Swelling, Increased Redness, Foul Smelling Discharge, Swelling at the incision site Call your doctor if you observe: Fever of 101 or Higher Allergies/Adverse Reactions: Allergies ciprofloxacin Allergy (Unknown, Verified 10/02/20 06:21) unknown Sulfa (Sulfonamide Antibiotics) Allergy (Unknown, Verified 10/02/20 06:21) unknown Medications to take at Discharge ascorbic acid (vitamin C) 1,000 mg tablet 1 g PO BID 08/27/20 cholecalciferol (vitamin D3) 25 mcg (1,000 unit) capsule 25 mcg PO DAILY 08/27/20 diltiazem HCl 240 mg capsule,extended release 24 hr, controlled 240 mg PO DAILY cap 08/27/20 methenamine hippurate 1 gram tablet 1 g PO BID tab 08/27/20 nitrofurantoin monohydrate/macrocrystals 100 mg capsule 100 mg PO ONCE cap 08/27/20 omega-3 fatty acids 500 mg capsule 500 mg PO DAILY 08/27/20 pravastatin 80 mg tablet 80 mg PO DAILY tab 08/27/20 sertraline 50 mg tablet 50 mg PO DAILY tab 08/27/20 trazodone 50 mg tablet 50 mg PO QHS tab 08/27/20 warfarin 2 mg tablet 2 mg PO DAILY tab 08/27/20 Magnesium 500 mg PO DAILY 09/15/20 Multivitamin 1 ea PO DAILY 09/15/20 Primary Care Physician: Meliton Lindsey MD [Primary Care Provider] - Test Results: Test results from this visit will be discussed in further detail at your follow- up appointment, if applicable. Please Follow Up With: Sarita Johnson MD - After 5:00 on the weekends call [phone] with any concerns When: Follow-up in the office in 1 to 2 weeks call for appointment Proposed Discharge Date: 10/02/20
[2020-10-02 08:16] VITALS: BP 106/71; BP 98/67; PULSE 62; RESP 16; TEMP 35.8; O2SAT 99
[2020-10-02 08:21] VITALS: BP 101/59; BP 106/71; PULSE 69; RESP 16; O2SAT 98
[2020-10-02 08:26] VITALS: BP 105/50; BP 106/71; PULSE 66; RESP 16; O2SAT 99
[2020-10-02 08:31] VITALS: BP 103/80; BP 106/71; PULSE 62; RESP 16; TEMP 35.8; O2SAT 97
--- NOTE | 2020-10-02 08:53 | HP_ITS ---
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 Is patient in pain?: No Allergies ciprofloxacin Allergy (Unknown, Verified 09/08/20 12:27) unknown Sulfa (Sulfonamide Antibiotics) Allergy (Unknown, Verified 09/08/20 12:27) unknown Medications ascorbic acid (vitamin C) 1,000 mg tablet 1 g PO Q6H 08/27/20 [History Confirmed 09/08/20] calcium-magnesium 300 mg-300 mg tablet 1 tab PO DAILY 08/27/20 [History Confirmed 09/08/20] cholecalciferol (vitamin D3) 25 mcg (1,000 unit) capsule 25 mcg PO DAILY 08/27/20 [History Confirmed 09/08/20] diltiazem HCl 240 mg capsule,extended release 24 hr, controlled 240 mg PO DAILY cap 08/27/20 [History Confirmed 09/08/20] glucosamine HCl 500 mg tablet 500 mg PO DAILY 08/27/20 [History Confirmed 09/08/20] methenamine hippurate 1 gram tablet 1 g PO BID tab 08/27/20 [History Confirmed 09/08/20] nitrofurantoin monohydrate/macrocrystals 100 mg capsule 100 mg PO ONCE cap 08/27/20 [History Confirmed 09/08/20] omega-3 fatty acids 500 mg capsule 500 mg PO DAILY 08/27/20 [History Confirmed 09/08/20] pravastatin 80 mg tablet 80 mg PO DAILY tab 08/27/20 [History Confirmed 09/08/20] sertraline 50 mg tablet 50 mg PO DAILY tab 08/27/20 [History Confirmed 09/08/20] sucralfate 1 gram tablet 1 g PO QACHS tab 08/27/20 [History Confirmed 09/08/20] trazodone 50 mg tablet 50 mg PO QHS tab 08/27/20 [History Confirmed 09/08/20] warfarin 2 mg tablet 2 mg PO DAILY tab 08/27/20 [History Confirmed 09/08/20] [facility] Medical History (Updated 09/08/20 @ 14:[address] Sarita Johnson MD) Abnormal mammogram of right breast (Acute) Arthritis (Acute) Gastritis (Acute) Hyperlipidemia (Acute) Afib (Acute) Chronic insomnia (Chronic) Cystitis (Acute) Coronary artery dilation (Acute) Depression (Acute) Hypertension (Chronic) Breast cancer, right (Acute) Surgical History (Updated 09/08/20 @ 12:26 by Angely Castano) Hx of breast biopsy (Acute) History of hip replacement, total (Acute) Hx of cataract extraction (Acute) Hx of cholecystectomy (Acute) History of right breast biopsy (Acute ~09/02/20) Family History Mother Hypertension Afib Sister Afib Hypertension Social History (Updated 09/08/20 @ 14:[address] Sarita Johnson MD) Smoking Status: Never smoker second hand exposure: No alcohol intake: current alcohol intake frequency: a few times a month Alcohol type: wine substance use type: does not use diet: Weight Watchers caffeine: Yes what type of physical activity do you participate in: swimming, aerobics frequency: other HPI HPI HPI: HOLLI SEVILLA, is a 75 F who presents to the office today for HPI HPI Surgical H&P: Yes HPI: HOLLI SEVILLA, is a 75 F who presents to the office today for discussion of right breast biopsy pathology. Biopsy results showed invasive ductal carcinoma, grade 1/3, ER/VA greater than 95%, HER-2/sonu negative. Patient denies any pain or bleeding at biopsy site. Patient does have some resolving ecchymosis. ROS General General: Yes weight change; no fatigue, colon cancer, breast cancer or weakness HEENT HEENT: No difficulty swallowing, eye injury, eye surgery, swollen glands or hoarseness Endo Endocrine: No thyroid disease, diabetes mellitus, thyroid cancer, Hair loss, heat intolerance or cold intolerance Breast Breast: Yes right breast lump, abnormal mammogram and abnormal US Musc Musculoskeletal: Yes arthritis; no back problems, rheumatoid arthritis, gout or joint pain Cardio Cardiovascular: Yes atrial fibrillation; no pacemaker, heart disease, high blood pressure, heart attack, heart stent, palpitations, shortness of breat with exertion or chest pain Psych Psychiatric: No depression, anxiety or hearing voices Resp Respiratory: No shortness of breath, No sleep apnea, No cough, No COPD, No asthma, No emphysema, No wheezing Gastro Gastrointestinal: No abdominal pain, No nausea or vomiting, No diarrhea, No constipation, No blood in stool, No acid reflux, No hemorrhoids, No ulcers, No gallbladder problem, No black,tarry stools Thomas Hematologic: Yes blood thinners, No blood disorders, No bleeding, No anemia, No blood clots Neuro Neurologic: No system reviewed and no additional complaints, except as docu, No as per HPI, No abnormal walking, No abnormal hearing, No abnormal movements, No abnormal speech, No behavioral changes, No burning sensations, No confusion, No seizure-like activity, No unsteadiness, No dizziness, No localized weakness, No frequent falls, No headache(s), No lack of coordination, No loss of vision, No memory loss, No numbness, No other visual disturbances, No radiating pain, No restless legs, No sensory deficit, No fainting, No tingling, No tremor(s), No weakness, No other Exam Const General: cooperative, comfortable, no acute distress Chest Other: Right breast: Biopsy incisions healing well with Steri's, ecchymosis resolving, protuberant lesion on right nipple (been there for years per patient) Assessment & Plan Problems 1. 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 I have given the patient options for initial surgical treatment. Options are the following: lumpectomy followed by radiation therapy vs. mastectomy vs. mastectomy followed by immediate reconstruction. I have described the procedures to the patient. I have described the advantages and disadvantages of the options, but I have told the patient that among the options, the survival rate for breast cancer is the same. I have told the patient that with all the surgeries that a sentinel lymph node biopsy is required. I have described the procedure of sentinel lymph node biopsy to the patient. I have told the patient that if the biopsy is positive for metastatic disease, then a full axillary lymph node dissection is required. I have told the patient that adjuvant chemotherapy will be required should the lymph nodes reveal metastatic disease. Also, a full lymph node dissection will increase the risk for lymphedema, especially if there are 4 or more lymph nodes positive for metastatic disease and radiation to the axilla is also required. I have told the patient the risks of surgery, including but not limited to: infection, bleeding, scar tissue, seroma and persistent seroma, lymph leak, injury to any blood vessels, injury to any nerves (particularly the long thoracic, the thoracodorsal, and the second intercostal brachial and the resultant sequelae), lymphedema, cosmetic deformity, dysesthesias, wound infections, further surgery (especially if margins are not clear), complications of anesthesia, etc. the patient understands. Pt is planning on a right lumpectomy with stereotactic needle localization, sentinel lymph node biopsy, possible axillary lymph node dissection. Patient will meet with radiation oncology to make sure she understands what radiation entails. Tentatively scheduling for September 18 I have answered all the patient?s questions at this point to her satisfaction and she has no further questions. Greater than 50% of direct patient contact was spent in counseling or coordination of care. I spent 25 minutes counseling the patient on surgical options for treatment and coordinating care. Sarita Johnson M.D. Pager: [phone] [facility] [address] [place] [address], [address] [place] [id number] Office: [phone] p Orders Referrals: Oncology C50.919 Plan Detail Follow Up Patient will let us know after meeting with radiation oncology if she is still would like to have a lumpectomy. 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 delaying the surgery/procedure. It is not possible to know either the risk of delaying the surgery or procedure or chance of getting an infection with perfect accuracy, but a joint decision was made between the patient and the surgeon/proceduralist ?to proceed at this time with the scheduled surgery/procedure as indicated on the consent form. I have examined the patient the following changes are noted: Patient did undergo right lumpectomy as well as sentinel lymph node excision. Pathology below Procedure: Lumpectomy excision with wire guidance Specimen: Type: Partial breast, lumpectomy. Size: 7 x 4 x 2 cm Site: Right breast Invasive Tumor: Size of tumor: 0.5 x 0.5 x 0.5 cm Histologic type: Invasive ductal carcinoma. Focality: Single focus of carcinoma Histologic grade (Lutz grade): Glandular/tubular differentiation score: 2 Nuclear pleomorphism score: 2 Mitotic count score: 1 Overall grade: 1 (score of 5) Ductal Carcinoma In Situ: Present Estimated quantification: 25% Number of blocks: 6 blocks (inclusive of specimens B & C) Architectural pattern: Cribriform and comedo types Nuclear grade: 2 Necrosis: Present Lobular Carcinoma In Situ: Not present Tumor extension: Skin: No skin present Nipple: No nipple present. Skeletal muscle: Not present Margins: Distance of Invasive Carcinoma from closest margin: 0.5 cm from anterior margin Distance of in situ carcinoma from closest margin: 1.5 mm from anterior margin (specimen C) Lymph Nodes: Total number of lymph nodes examined: 2 Total number of sentinel lymph nodes examined: 2 No evidence of macrometastases, micrometastases or isolated tumor cells. Additional pathologic findings: Changes of previous biopsy. Usual intraductal hyperplasia with multifocal atypical intraductal hyperplasia. Focal atypical lobular hyperplasia. Fibrocystic change. Ancillary Studies: Previously performed on same tumor ([id number] / [id number]) ER: Positive (>95%, strong intensity) VA: Positive (>95%, strong intensity) [id number]: Negative (0) Microcalcifications: Present in neoplastic and non-neoplastic tissue. Clinical History: Mass PATHOLOGIC STAGE: T1a N0(sn) Mx Discussed with patient plan to reexcise the anterior margin due to DCIS within the 1.5 mm and also possibly at the margin. Patient was agreeable with plan.
[2020-10-02 08:55] VITALS: BP 106/71
== END 2020-10-02 09:15 | disposition home or self-care (01) ==
LOC: SDC 05:31 → AC 05:33
PROVIDERS: PCP Family Medicine; Referring Provider Surgery; Visit Provider Surgery
PROC: (CPT 19301; principal; 2020-10-02 07:15)
DX: C50.911 Malignant neoplasm of unspecified site of right female breast (principal); N62 Hypertrophy of breast; Z20.822 Contact with and (suspected) exposure to COVID-19; F32.9 Major depressive disorder, single episode, unspecified; E78.00 Pure hypercholesterolemia, unspecified; M19.90 Unspecified osteoarthritis, unspecified site; E78.5 Hyperlipidemia, unspecified; I48.91 Unspecified atrial fibrillation; I10 Essential (primary) hypertension; Z79.899 Other long term (current) drug therapy; Z79.01 Long term (current) use of anticoagulants
CPT/HCPCS: 19301; 36416; 85610; 87426; 88305; 88307; C9803; J7120

== ENCOUNTER → 2020-10-21 16:35 | Outpatient (CLI) | payer MEDICARE, OTHER, SELFPAY ==
[2020-09-11 14:08] VITALS: BMI 31.0
[2020-10-16 14:29] VITALS: BMI 30.9
== END ==
PROVIDERS: PCP Family Medicine; Referring Provider Nurse Practitioner Adult Health; Visit Provider Nurse Practitioner Adult Health
DX: N39.0 Urinary tract infection, site not specified (principal)
CPT/HCPCS: 87086; 87088

== ENCOUNTER → 2020-10-31 10:34 | Outpatient (CLI) | payer MEDICARE, OTHER, SELFPAY ==
[2020-09-11 14:08] VITALS: BMI 31.0
[2020-10-16 14:29] VITALS: BMI 30.9
[2020-10-31 12:57] LABS: International Normalized Ratio 1.7; Prothrombin Time (Protime)PT. 19.5 SECONDS (11.7-14.9)
== END ==
PROVIDERS: PCP Family Medicine; Referring Provider Family Medicine; Visit Provider Family Medicine
DX: I48.91 Unspecified atrial fibrillation (principal)
CPT/HCPCS: 36415; 85610

== ENCOUNTER → 2020-12-02 09:18 | Outpatient (CLI) | payer MEDICARE, OTHER, SELFPAY ==
[2020-09-11 14:08] VITALS: BMI 31.0
[2020-11-27 13:39] VITALS: BMI 31.7
--- NOTE | 2020-12-02 09:27 | BD_ITS ---
STUDY: DUAL ENERGY X-RAY ABSORPTIOMETRY / DXA REASON FOR EXAM: Female, 75 years old. Post-menopausal TECHNIQUE: Bone Mineral Density (BMD) measurements of lumbar spine and left hip were obtained. COMPARISON: None. FINDINGS: Lumbar Spine (L1-L4): g/cm2 (1.088) / T-score (-0.9) / Z-score (0.8) Findings are suggestive of normal bone density with a low fracture risk. Left Femur Total: g/cm2 (0.816) / T-score (-1.5) / Z-score (0.2) Left Femoral Neck: g/cm2 (0.814) / T-score (-1.6) / Z-score (0.3) BD/Dexa Bone Density Study IMPRESSION: The patient is considered osteopenic as outlined below according to World [employer]ún[employer] Organization (WHO) criteria with a moderate fracture risk. Reference Information: The T-score is the number of standard deviations above or below the standard which is normal for young adults at their peak bone mineral density. The World Health Organization (WHO) interprets the T-scores as follows: Above -1 Normal bone density Between -1 and -2.5 Osteopenia Equal to / or below -2.5 Osteoporosis As a practical clinical guideline, osteopenia may be graded as follows: Mild -1 through -1.5 Moderate -1.6 through -2.0 Severe -2.1 through -2.4 The Z-score is the number of standard deviations above or below age-matched controls. A Z-score of less than -1.5 would be considered abnormal. References: 1. NIH Osteoporosis and Related Bone Diseases www osteo.org 2. International Society for Clinical Densitometry www iscd.org 3. National Osteoporosis Foundation www nof.org Electronically Signed: Andrés Muse MD at 14:22 EDT , Service support ,
== END ==
PROVIDERS: PCP Family Medicine; Referring Provider Internal Medicine Medical Oncology; Visit Provider Internal Medicine Medical Oncology
DX: Z78.0 Asymptomatic menopausal state (principal)
CPT/HCPCS: 77080

== ENCOUNTER → 2021-01-19 10:17 | Outpatient (CLI) | payer MEDICARE, OTHER, SELFPAY ==
[2020-09-11 14:08] VITALS: BMI 31.0
[2020-12-10 13:29] VITALS: BMI 32.0
--- NOTE | 2021-01-19 10:25 | RAD_ITS ---
STUDY: X-RAY - ABDOMEN/PELVIS REASON FOR EXAM: Female, 75 years old. CALCULUS OF KIDNEY TECHNIQUE: 2 views COMPARISON: 01/07/2020. FINDINGS: Normal visualized lung bases. There is nonspecific gas pattern distribution. There are multiple calcifications superimposing the left kidney and one calcification superimposing the right kidney. The previously described calculi within the region of the urinary bladder are not noted in today''s examination. The visualized bones are intact and there is a bipolar hip prosthesis on the right side. RAD/Abdomen Single View IMPRESSION: Still noted multiple calcifications superimposing the left kidney and single 1 superimposing the right kidney. No more calcifications in the region of the urinary bladder. Electronically Signed: Ilan Champagne, at 14:39 EDT Tel , Service support ,
== END ==
PROVIDERS: PCP Family Medicine; Referring Provider Nurse Practitioner Adult Health; Visit Provider Nurse Practitioner Adult Health
DX: N20.0 Calculus of kidney (principal)
CPT/HCPCS: 74018

== ENCOUNTER 2021-02-26 09:56 | Outpatient (RCR) | payer MEDICARE, OTHER, SELFPAY ==
[2020-09-11 14:08] VITALS: BMI 31.0
[2021-02-19 14:50] VITALS: BMI 31.4
[2021-02-26 10:50] LABS: International Normalized Ratio 2.4; Prothrombin Time (Protime)PT. 25.6 SECONDS (11.7-14.9)
== END 2021-02-26 18:00 | disposition home or self-care (01) ==
LOC: LAB 09:56
PROVIDERS: PCP Family Medicine; Visit Provider Family Medicine
DX: I48.91 Unspecified atrial fibrillation (principal)
CPT/HCPCS: 36415; 85610

== ENCOUNTER 2021-05-21 09:59 | Outpatient (RCR) | payer MEDICARE, OTHER, SELFPAY ==
[2020-09-11 14:08] VITALS: BMI 31.0
[2021-02-19 14:50] VITALS: BMI 31.4
[2021-05-21 12:19] LABS: Prothrombin Time (Protime)PT. 22.2 SECONDS (11.7-14.9)
== END 2021-05-31 03:43 | disposition home or self-care (01) ==
LOC: LAB 09:59
PROVIDERS: PCP Family Medicine; Referring Provider Family Medicine; Visit Provider Family Medicine
DX: I48.91 Unspecified atrial fibrillation (principal)
CPT/HCPCS: 36415; 85610

== ENCOUNTER 2021-06-04 09:52 | Outpatient (RCR) | payer MEDICARE, OTHER, SELFPAY ==
[2020-09-11 14:08] VITALS: BMI 31.0
[2021-05-31 03:43] VITALS: BMI 31.4
[2021-06-04 10:34] LABS: International Normalized Ratio 2.3; Prothrombin Time (Protime)PT. 24.8 SECONDS (11.7-14.9)
== END 2021-06-30 18:00 | disposition home or self-care (01) ==
LOC: LAB 09:52
PROVIDERS: PCP Family Medicine; Referring Provider Family Medicine; Visit Provider Family Medicine
DX: I48.91 Unspecified atrial fibrillation (principal); N30.90 Cystitis, unspecified without hematuria
CPT/HCPCS: 36415; 85610; 87086

== ENCOUNTER 2021-07-07 11:19 | Outpatient (RCR) | payer MEDICARE, OTHER, SELFPAY ==
[2020-09-11 14:08] VITALS: BMI 31.0
[2021-07-01 02:22] VITALS: BMI 31.4
[2021-07-07 12:21] LABS: International Normalized Ratio 2.5; Prothrombin Time (Protime)PT. 26.3 SECONDS (11.7-14.9)
== END 2021-08-01 18:00 | disposition home or self-care (01) ==
LOC: LAB 11:19
PROVIDERS: PCP Family Medicine; Referring Provider Family Medicine; Visit Provider Family Medicine
DX: I48.91 Unspecified atrial fibrillation (principal)
CPT/HCPCS: 36415; 85610

== ENCOUNTER 2021-08-11 09:25 | Outpatient (RCR) | payer MEDICARE, OTHER, SELFPAY ==
[2020-09-11 14:08] VITALS: BMI 31.0
[2021-08-02 04:10] VITALS: BMI 31.4
[2021-08-11 10:47] LABS: International Normalized Ratio 2.3; Prothrombin Time (Protime)PT. 24.9 SECONDS (11.7-14.9)
[2021-08-11 11:06] LABS: ALB/GLOB Ratio 0.9 RATIO (0.9-2.4); AST(SGOT) 28 U/L (15-37); Alanine Aminotransfer ALT/SGPT 29 U/L (13-56); Albumin, Serum 3.7 g/dL (3.2-5.0); Alkaline Phosphatase 67 U/L (45-117); Anion Gap 8 (5-15); BUN 16 mg/dL (7-18); BUN/Creat Ratio 16.7 RATIO (10-20); Calcium,Total 9.1 mg/dL (8.5-10.1); Chloride 104 mmol/L (98-107); Cholesterol 157 mg/dL (200); Creatinine, Serum 0.96 mg/dL (0.55-1.02); EST Glomerular Filtration Rate 61 mL/min (>60); Est Glom Filt Rate - Afr Amer 73 mL/min (>60); Globulin 3.9 g/dL (2.2-4.2); Glucose 99 mg/dL (74-106); High Density Lipoprotein 58 mg/dL; Potassium 4.5 mmol/L (3.5-5.1); Protein, Total 7.6 g/dL (6.4-8.2); Sodium Level 143 mmol/L (136-145); Triglycerides 96 mg/dL; Very Low Density Lipoprotein 19 mg/dL (5-40)
== END 2021-08-31 18:00 | disposition home or self-care (01) ==
LOC: LAB 09:25
PROVIDERS: Family Medicine; PCP Family Medicine; Referring Provider Family Medicine; Visit Provider Family Medicine
DX: I48.91 Unspecified atrial fibrillation (principal); Z79.899 Other long term (current) drug therapy
CPT/HCPCS: 36415; 80053; 80061; 85610

== ENCOUNTER 2021-08-21 11:25 | Outpatient (CLI) | payer MEDICARE, OTHER, SELFPAY ==
[2020-09-11 14:08] VITALS: BMI 31.0
[2021-02-19 14:06] VITALS: BMI 32.3
--- NOTE | 2021-08-21 11:29 | BI_ITS ---
MAMMOGRAPHY - BILATERAL SCREENING REASON FOR EXAM: Female, 76 years old. Routine annual screening examination. PERTINENT HISTORY: Personal history of breast cancer. Prior right lumpectomy and radiation therapy. Prior left needle breast biopsy. TECHNIQUE: Digital bilateral breast jesus (3D mammographic acquisition) in the CC and MLO projections. 2-D mediolateral oblique (MLO) and craniocaudad (CC) views of both breasts were obtained. CAD: Full Field Digital Mammography with Computer Added Detection was performed. COMPARISON: Comparison is made with prior examination dated 08/20/2020. FINDINGS: Breast Composition: There are scattered areas of fibroglandular density. There are no dominant masses or suspicious calcifications. The patient is status post lumpectomy in the superior retroareolar region of the right breast with resultant postoperative scarring. Surgical clips are also seen in the right axillary region. No other significant abnormalities are identified. BI/SCRN MAMM (CAD)W/JESUS BILAT IMPRESSION: Status post right lumpectomy with resultant postoperative scarring as described. Yearly follow-up mammogram recommended. (A) ASSESSMENT CATEGORY: BIRADS Category 2: Benign. A letter regarding these results will be sent to the patient by the facility within 30 days. Approximately 10% of breast cancers are not detected by mammography. A normal mammogram should not delay biopsy of a clinically suspicious abnormality. [id number] Electronically Signed: Andrés Muse MD at 13:05 EST , Service support ,
== END 2021-08-21 23:59 | disposition short-term general hospital (02) ==
LOC: OPBI 11:27
PROVIDERS: PCP Family Medicine; Referring Provider Internal Medicine Medical Oncology; Visit Provider Internal Medicine Medical Oncology
DX: Z12.31 Encounter for screening mammogram for malignant neoplasm of breast (principal); C50.211 Malignant neoplasm of upper-inner quadrant of right female breast; Z17.0 Estrogen receptor positive status [ER+]; Z98.890 Other specified postprocedural states
CPT/HCPCS: 77063; 77067

== ENCOUNTER 2021-09-10 12:54 | Outpatient (RCR) | payer MEDICARE, OTHER, SELFPAY ==
[2020-09-11 14:08] VITALS: BMI 31.0
[2021-08-31 23:02] VITALS: BMI 31.4
[2021-09-10 14:21] LABS: International Normalized Ratio 1.8; Prothrombin Time (Protime)PT. 20.4 SECONDS (11.7-14.9)
== END 2021-09-10 18:00 | disposition home or self-care (01) ==
LOC: LAB 12:54
PROVIDERS: PCP Family Medicine; Referring Provider Family Medicine; Visit Provider Family Medicine
DX: I48.91 Unspecified atrial fibrillation (principal)
CPT/HCPCS: 36415; 85610

== ENCOUNTER 2021-10-15 12:21 | Outpatient (RCR) | payer MEDICARE, OTHER, SELFPAY ==
[2020-09-11 14:08] VITALS: BMI 31.0
[2021-09-29 10:02] VITALS: BMI 31.4
[2021-10-08 11:43] LABS: Prothrombin Time (Protime)PT. 40.3 SECONDS (11.7-14.9)
[2021-10-08 13:41] LABS: International Normalized Ratio 4.3
[2021-10-15 13:30] LABS: International Normalized Ratio 3.7
== END 2021-10-29 18:00 | disposition home or self-care (01) ==
LOC: LAB 12:21
PROVIDERS: PCP Family Medicine; Referring Provider Family Medicine; Visit Provider Family Medicine
DX: I48.91 Unspecified atrial fibrillation (principal)
CPT/HCPCS: 36415; 85610

== ENCOUNTER 2021-10-28 12:26 | Outpatient (CLI) | payer MEDICARE, OTHER, SELFPAY ==
[2020-09-11 14:08] VITALS: BMI 31.0
--- NOTE | 2021-10-28 12:42 | MRI_ITS ---
STUDY: MRI LUMBAR SPINE WITH AND WITHOUT CONTRAST REASON FOR EXAM: Female, 76 years old. BACK PAIN TECHNIQUE: Standardized fat and water weighted pulse sequences were obtained in the sagittal and axial planes. IV 18mL DOTAREM was administered for the contrast portion of the examination. COMPARISON: None FINDINGS: T12-L1: Normal endplates. Normal disc height, hydration and morphology. Normal bilateral facet joints. Normal central canal and bilateral lateral recesses. Normal bilateral intervertebral neural foramina. Normal lumbar lordosis. There is no substantial scoliosis. Normal conus medullaris that terminates at the superior margin of L2. No cord compression. L1-2: Mild Modic type endplate degenerative changes. Moderate decreased disc height and decreased T2 signal intensity. Right lateral mild broad-based disc protrusion and mild annular disc bulge minimally flattening the ventral thecal sac and mild right greater than left neural foraminal narrowing. L2-3: Normal endplates. Well-maintained disc height and some maintained typical high T2 central signal intensity. Mild annular disc bulge and spondylosis, associated with moderate right and minimal left neural foraminal narrowing. No rakel spinal stenosis. Minimal ligamentum flavum hypertrophy and mild increased T2 signal intensity in the facet joints. L3-4: Unremarkable in place with the exception of mild high signal intensity in the posterior endplate of L3, most likely mild Modic type changes. Normal disc height, with decreased T2 signal intensity. Mild annular disc bulge and mild bilateral neural foraminal narrowing. No spinal stenosis. Mild ligamentum flavum hypertrophy L4-5: Normal endplates. Slight anterolisthesis of L4 with respect to L5 of roughly 4 mm. Mild decreased disc height and decreased T2 signal intensity, mild annular disc bulge and small bilateral posterior lateral disc protrusions without rakel spinal stenosis. Mild bilateral neural foraminal stenosis. L5-S1: Normal endplates. . Normal disc height but decreased T2 signal intensity in the disc. Minimal annular disc bulge. No rakel spinal or significant neural foraminal stenosis. Normal visualized sacral ala. Normal visualized paraspinous soft tissue structures. Normal aortoiliac caliber. Right kidney cyst of roughly 6 mm. Mildly prominent left renal pelvis of 1.7 cm AP. MRI/Spine Lumbar W/WO Contrast IMPRESSION: Mild multilevel degenerative changes. No cord, conus or nerve root impingement. Electronically Signed: Natasha Ashley MD at 21:13 EDT ,
[2021-10-28 12:51] LABS: CREATININE FINGERSTICK < 0.6 mg/dL (0.55-1.02); EGFR FINGERSTICK > 60.0000 mL/min (>60)
== END 2021-10-28 23:59 | disposition home or self-care (01) ==
LOC: MRI 12:27
PROVIDERS: PCP Family Medicine; Referring Provider Family Medicine; Visit Provider Family Medicine
DX: M54.9 Dorsalgia, unspecified (principal)
CPT/HCPCS: 72158; A9575

== ENCOUNTER 2021-11-26 13:33 | Outpatient (RCR) | payer MEDICARE, OTHER, SELFPAY ==
[2020-09-11 14:08] VITALS: BMI 31.0
[2021-10-30 01:46] VITALS: BMI 31.4
[2021-11-05 11:10] LABS: International Normalized Ratio 1.5; Prothrombin Time (Protime)PT. 17.4 SECONDS (11.7-14.9)
[2021-11-26 14:07] LABS: International Normalized Ratio 2.3; Prothrombin Time (Protime)PT. 25.1 SECONDS (11.7-14.9)
== END 2021-11-26 18:00 | disposition home or self-care (01) ==
LOC: LAB 13:33
PROVIDERS: PCP Family Medicine; Referring Provider Family Medicine; Visit Provider Family Medicine
DX: I48.91 Unspecified atrial fibrillation (principal)
CPT/HCPCS: 36415; 85610

== ENCOUNTER 2021-12-24 12:16 | Outpatient (RCR) | payer MEDICARE, OTHER, SELFPAY ==
[2020-09-11 14:08] VITALS: BMI 31.0
[2021-11-29 02:59] VITALS: BMI 31.4
[2021-12-24 13:26] LABS: International Normalized Ratio 2.2; Prothrombin Time (Protime)PT. 24.5 SECONDS (11.7-14.9)
== END 2021-12-24 18:00 | disposition home or self-care (01) ==
LOC: LAB 12:16
PROVIDERS: PCP Family Medicine; Referring Provider Family Medicine; Visit Provider Family Medicine
DX: I48.91 Unspecified atrial fibrillation (principal)
CPT/HCPCS: 36415; 85610

== ENCOUNTER 2022-01-26 12:14 | Outpatient (RCR) | payer MEDICARE, OTHER, SELFPAY ==
[2020-09-11 14:08] VITALS: BMI 31.0
[2021-12-29 20:40] VITALS: BMI 31.4
[2022-01-26 12:51] LABS: International Normalized Ratio 2.7; Prothrombin Time (Protime)PT. 28.3 SECONDS (11.7-14.9)
== END 2022-01-26 23:59 | disposition home or self-care (01) ==
LOC: LAB 12:14
PROVIDERS: PCP Family Medicine; Referring Provider Family Medicine; Visit Provider Family Medicine
DX: I48.91 Unspecified atrial fibrillation (principal)
CPT/HCPCS: 36415; 85610

== ENCOUNTER 2022-02-26 11:17 | Outpatient (RCR) | payer MEDICARE, OTHER, SELFPAY ==
[2020-09-11 14:08] VITALS: BMI 31.0
[2022-01-29 06:59] VITALS: BMI 31.4
[2022-02-22 09:28] LABS: Absolute Lymphocyte Count 2.04 X10^3/uL (0.83-4.51); Absolute Neutrophil Count 4.8 X10^3/uL (2.0-7.7); Basophil# 0.07 X10^3/uL; Basophil% 0.9 % (0-1); Eosinophil# 0.21 X10^3/uL; Eosinophils% 2.7 % (0-5); Hematocrit 46.5 % (37-47); Hemoglobin 14.9 g/dL (12.0-15.0); Lymphocyte # 2.04 X10^3/ul (0.83-4.51); Lymphocyte % 26.5 % (19-41); Mean Corpuscular Hgb 27.6 pg (27.0-32.0); Mean Corpuscular Volume 86.1 fL (81-99); Mean Platelet Vol. 10.3 fl (6.2-12.0); Monocyte# 0.58 X10^3/uL; Monocyte% 7.5 % (0-10); NRBC Flagged by Analyzer 0 % (0-5); Neutrophil # 4.76 X10^3/uL (2.7-7.7); Platelet Count 251 K/mm3 (150-450); RBC Distribution Width CV 13.2 % (11.6-14.6); RBC Distribution Width SD 41.7 fl (35.1-43.9); White Blood Count 7.7 K/mm3 (4.4-11.0)
[2022-02-22 09:33] LABS: Prothrombin Time (Protime)PT. 38.6 SECONDS (11.7-14.9)
[2022-02-22 10:01] LABS: ALB/GLOB Ratio 0.9 RATIO (0.9-2.4); AST(SGOT) 18 U/L (15-37); Alanine Aminotransfer ALT/SGPT 22 U/L (13-56); Albumin, Serum 3.4 g/dL (3.2-5.0); Alkaline Phosphatase 69 U/L (45-117); Anion Gap 7 (5-15); BUN 23 mg/dL (7-18); Calcium,Total 9.3 mg/dL (8.5-10.1); Chloride 106 mmol/L (98-107); Creatinine, Serum 0.96 mg/dL (0.55-1.02); EST Glomerular Filtration Rate 60 mL/min (>60); Est Glom Filt Rate - Afr Amer 73 mL/min (>60); Globulin 3.6 g/dL (2.2-4.2); Glucose 116 mg/dL (74-106); LDH 271 U/L (84-246); Potassium 3.8 mmol/L (3.5-5.1); Sodium Level 139 mmol/L (136-145)
[2022-02-24 10:59] LABS: Prothrombin Time (Protime)PT. 44.7 SECONDS (11.7-14.9)
[2022-02-24 11:03] LABS: International Normalized Ratio 4.8
[2022-02-26 12:20] LABS: International Normalized Ratio 2.5; Prothrombin Time (Protime)PT. 26.4 SECONDS (11.7-14.9)
== END 2022-02-28 02:19 | disposition home or self-care (01) ==
LOC: LAB 11:17
PROVIDERS: Internal Medicine Medical Oncology; PCP Family Medicine; Referring Provider Family Medicine; Visit Provider Family Medicine
DX: I48.91 Unspecified atrial fibrillation (principal); I10 Essential (primary) hypertension; Z85.3 Personal history of malignant neoplasm of breast
CPT/HCPCS: 36415; 80053; 83615; 85025; 85610

== ENCOUNTER 2022-03-29 11:32 | Outpatient (RCR) | payer MEDICARE, OTHER, SELFPAY ==
[2020-09-11 14:08] VITALS: BMI 31.0
[2022-02-28 02:19] VITALS: BMI 31.4
[2022-03-08 09:00] LABS: Prothrombin Time (Protime)PT. 68.9 SECONDS (11.7-14.9)
[2022-03-08 09:05] LABS: International Normalized Ratio 8.3
[2022-03-10 13:38] LABS: Prothrombin Time (Protime)PT. 46.2 SECONDS (11.7-14.9)
[2022-03-12 13:41] LABS: International Normalized Ratio 2.9
[2022-03-15 10:58] LABS: International Normalized Ratio 1.5; Prothrombin Time (Protime)PT. 17.9 SECONDS (11.7-14.9)
[2022-03-18 11:46] LABS: International Normalized Ratio 1.3; Prothrombin Time (Protime)PT. 15.9 SECONDS (11.7-14.9)
[2022-03-29 12:44] LABS: Prothrombin Time (Protime)PT. 30.6 SECONDS (11.7-14.9)
== END 2022-03-29 18:00 | disposition home or self-care (01) ==
LOC: LAB 11:32
PROVIDERS: PCP Family Medicine; Referring Provider Family Medicine; Visit Provider Family Medicine
DX: I48.91 Unspecified atrial fibrillation (principal)
CPT/HCPCS: 36415; 85610

== ENCOUNTER 2022-04-22 09:24 | Outpatient (RCR) | payer MEDICARE, OTHER, SELFPAY ==
[2020-09-11 14:08] VITALS: BMI 31.0
[2022-03-31 22:59] VITALS: BMI 31.4
[2022-04-22 10:13] LABS: International Normalized Ratio 2.8; Prothrombin Time (Protime)PT. 29.2 SECONDS (11.7-14.9)
== END 2022-04-22 18:00 | disposition home or self-care (01) ==
LOC: LAB 09:24
PROVIDERS: PCP Family Medicine; Referring Provider Family Medicine; Visit Provider Family Medicine
DX: I48.91 Unspecified atrial fibrillation (principal)
CPT/HCPCS: 36415; 85610

== ENCOUNTER 2022-05-20 09:29 | Outpatient (RCR) | payer MEDICARE, OTHER, SELFPAY ==
[2020-09-11 14:08] VITALS: BMI 31.0
[2022-04-30 21:28] VITALS: BMI 31.4
[2022-05-04 10:54] LABS: International Normalized Ratio 1.1; Prothrombin Time (Protime)PT. 13.8 SECONDS (11.7-14.9)
--- NOTE | 2022-05-20 09:37 | RAD_ITS ---
STUDY: X-RAY - PELVIS AND LEFT HIP REASON FOR EXAM: Female, 77 years old. PAIN TECHNIQUE: 3 views of the pelvis and hip. COMPARISON: None. FINDINGS: There is a non-specific bowel gas pattern. Normal visualized soft tissue structures. Normal bilateral iliac wings, sacroiliac joints and visualized sacrum. Normal bilateral superior and inferior pubic rami. Normal pubic symphysis. Normal bilateral ischial tuberosities. Normal visualized femoral head. Normal acetabulum. There is mild articular joint space narrowing of the hip. RAD/HIP, UNI W/ Pelvis 2-3 Views IMPRESSION: Mild arthrosis per Electronically Signed: Guillermo Wheat MD at 9:53 EDT ,
[2022-05-20 10:07] LABS: International Normalized Ratio 2.9; Prothrombin Time (Protime)PT. 29.6 SECONDS (11.7-14.9)
== END 2022-05-20 18:00 | disposition home or self-care (01) ==
LOC: LAB 09:29
PROVIDERS: PCP Family Medicine; Referring Provider Family Medicine; Visit Provider Family Medicine
DX: I48.91 Unspecified atrial fibrillation (principal); M25.552 Pain in left hip
CPT/HCPCS: 36415; 73502; 85610

== ENCOUNTER 2022-06-15 10:37 | Outpatient (RCR) | payer MEDICARE, OTHER, SELFPAY ==
[2020-09-11 14:08] VITALS: BMI 31.0
[2022-06-01 10:08] VITALS: BMI 31.4
[2022-06-15 10:59] LABS: Prothrombin Time (Protime)PT. 22.2 SECONDS (11.7-14.9)
== END 2022-06-30 18:00 | disposition home or self-care (01) ==
LOC: LAB 10:37
PROVIDERS: PCP Family Medicine; Referring Provider Family Medicine; Visit Provider Family Medicine
DX: I48.91 Unspecified atrial fibrillation (principal)
CPT/HCPCS: 36415; 85610

== ENCOUNTER 2022-07-15 08:21 | Outpatient (RCR) | payer MEDICARE, OTHER, SELFPAY ==
[2020-09-11 14:08] VITALS: BMI 31.0
[2022-06-30 23:08] VITALS: BMI 31.4
[2022-07-15 08:52] LABS: International Normalized Ratio 2.1; Prothrombin Time (Protime)PT. 23.6 SECONDS (11.7-14.9)
== END 2022-07-15 18:00 | disposition home or self-care (01) ==
LOC: LAB 08:21
PROVIDERS: PCP Family Medicine; Referring Provider Family Medicine; Visit Provider Family Medicine
DX: I48.91 Unspecified atrial fibrillation (principal)
CPT/HCPCS: 36415; 85610

== ENCOUNTER → 2022-08-17 | Outpatient (CLI) | payer MEDICARE, OTHER, SELFPAY ==
[2020-09-11 14:08] VITALS: BMI 31.0
[2022-08-17 10:15] LABS: International Normalized Ratio 1.1; Prothrombin Time (Protime)PT. 14.1 SECONDS (11.7-14.9)
[2022-08-17 10:42] LABS: ALB/GLOB Ratio 1.2 RATIO (0.9-2.4); AST(SGOT) 12 U/L (15-37); Alanine Aminotransfer ALT/SGPT 17 U/L (13-56); Albumin, Serum 3.6 g/dL (3.2-5.0); Alkaline Phosphatase 70 U/L (45-117); Anion Gap 4 (5-15); BUN 16 mg/dL (7-18); BUN/Creat Ratio 18.8 RATIO (10-20); Calcium,Total 8.9 mg/dL (8.5-10.1); Chloride 111 mmol/L (98-107); Cholesterol 143 mg/dL (200); Creatinine, Serum 0.85 mg/dL (0.55-1.02); EST Glomerular Filtration Rate 69 mL/min (>60); Est Glom Filt Rate - Afr Amer 84 mL/min (>60); Glucose 106 mg/dL (74-106); High Density Lipoprotein 47 mg/dL; Potassium 4.4 mmol/L (3.5-5.1); Protein, Total 6.6 g/dL (6.4-8.2); Sodium Level 145 mmol/L (136-145); Triglycerides 87 mg/dL; Very Low Density Lipoprotein 17 mg/dL (5-40)
== END | disposition home or self-care (01) ==
LOC: MFPLAB 08:26
PROVIDERS: PCP Family Medicine; Visit Provider Family Medicine
DX: I48.91 Unspecified atrial fibrillation (principal); E66.9 Obesity, unspecified
CPT/HCPCS: 36415; 80053; 80061; 85610

== ENCOUNTER → 2022-08-23 | Outpatient (CLI) | payer MEDICARE, OTHER, SELFPAY ==
[2020-09-11 14:08] VITALS: BMI 31.0
--- NOTE | 2022-08-23 09:44 | BI_ITS ---
MAMMOGRAPHY - BILATERAL SCREENING REASON FOR EXAM: Female, 77 years old. Routine annual screening examination. PERTINENT HISTORY: Personal history of breast cancer. Prior right lumpectomy and radiation treatment. TECHNIQUE: Digital bilateral breast jesus (3D mammographic acquisition) in the CC and MLO projections. 2-D mediolateral oblique (MLO) and craniocaudad (CC) views of both breasts were obtained. CAD: Full Field Digital Mammography with Computer Added Detection was performed. COMPARISON: Comparison is made with prior examination dated 02/18/2022 and 09/18/2020. FINDINGS: Breast Composition: There are scattered areas of fibroglandular density. There are no dominant masses or suspicious calcifications. Once again, the patient is status post lumpectomy in the superior retroareolar region of the right breast. Stable persistent postoperative changes. Surgical clips are seen in the right axillary region. No other significant abnormalities are identified. There has been no significant change since the prior study. BI/SCRN MAMM (CAD)W/JESUS BILAT IMPRESSION: Stable bilateral screening mammogram. Yearly follow-up mammogram recommended. (A) ASSESSMENT CATEGORY: BIRADS Category 2: Benign. A letter regarding these results will be sent to the patient by the facility within 30 days. Approximately 10% of breast cancers are not detected by mammography. A normal mammogram should not delay biopsy of a clinically suspicious abnormality. [id number] Electronically Signed: Andrés Muse MD at 11:20 EST ,
== END | disposition home or self-care (01) ==
LOC: OPBI 09:42
PROVIDERS: PCP Family Medicine; Visit Provider Internal Medicine Medical Oncology
DX: Z12.31 Encounter for screening mammogram for malignant neoplasm of breast (principal)
CPT/HCPCS: 77063; 77067

== ENCOUNTER 2022-09-27 09:39 | Outpatient (RCR) | payer MEDICARE, OTHER, SELFPAY ==
[2020-09-11 14:08] VITALS: BMI 31.0
[2022-08-01 02:14] VITALS: BMI 31.4
[2022-09-27 12:12] LABS: International Normalized Ratio 1.9; Prothrombin Time (Protime)PT. 21.9 SECONDS (11.7-14.9)
== END 2022-09-27 18:00 | disposition home or self-care (01) ==
LOC: LAB 09:39
PROVIDERS: PCP Family Medicine; Referring Provider Family Medicine; Visit Provider Family Medicine
DX: I48.91 Unspecified atrial fibrillation (principal)
CPT/HCPCS: 36415; 85610

== ENCOUNTER → 2022-10-02 | Outpatient (CLI) | payer MEDICARE, OTHER, SELFPAY ==
[2020-09-11 14:08] VITALS: BMI 31.0
--- NOTE | 2022-10-02 10:59 | MRI_ITS ---
INDICATION: left hip pain EXAMINATION: MRI - MR Hip W/O Contrast TECHNIQUE: Multiplanar and multisequence MR images of the LEFT hip. IV Contrast Dosage and Agent: None. COMPARISON: None. FINDINGS: BONE: Moderate joint space narrowing, mild marrow edema superior femoral head, mild osteophytic spurring base of left femoral head. No evidence of fracture or avascular necrosis. JOINT: Moderate joint space narrowing, mild marrow edema of the anterior acetabular roof. Moderate osteophytic spurring peripherally of the acetabular rim.] Small left hip joint effusion. MUSCLES: Normal muscle bulk and signal. ACETABULAR LABRUM: No evidence of a tear on this non-arthrogram exam. TENDONS: The gluteal tendons, hamstrings tendons, and iliopsoas tendon are intact. BURSA: Moderate left hip trochanteric bursitis. OTHER SOFT TISSUES: Unremarkable. PELVIS: Metal artifact right hip consistent with prior hip arthroplasty. MRI/Lower Ext Joint Only (Routine) IMPRESSION: Moderately severe osteoarthritis left hip, small left hip joint effusion, left hip trochanteric bursitis. Metal artifact right hip consistent with prior hip arthroplasty. Electronically Signed: Amrik Jain MD, DOUGLAS at 22:27 EST Reading Location ID and State: [facility] / MD Tel , Service support ,
== END | disposition home or self-care (01) ==
LOC: MRI 10:46
PROVIDERS: PCP Family Medicine; Visit Provider Family Medicine
DX: M25.552 Pain in left hip (principal)
CPT/HCPCS: 73721

== ENCOUNTER 2022-11-01 13:57 | Outpatient (RCR) | payer MEDICARE, OTHER, SELFPAY ==
[2020-09-11 14:08] VITALS: BMI 31.0
[2022-09-28 20:12] VITALS: BMI 31.4
[2022-11-01 15:21] LABS: International Normalized Ratio 1.8; Prothrombin Time (Protime)PT. 20.5 SECONDS (11.7-14.9)
== END 2022-11-28 01:16 | disposition home or self-care (01) ==
LOC: LAB 13:57
PROVIDERS: PCP Family Medicine; Referring Provider Family Medicine; Visit Provider Family Medicine
DX: I48.91 Unspecified atrial fibrillation (principal); Z79.01 Long term (current) use of anticoagulants
CPT/HCPCS: 36415; 85610

== ENCOUNTER → 2022-11-25 | Outpatient (CLI) | payer MEDICARE, OTHER, SELFPAY ==
[2020-09-11 14:08] VITALS: BMI 31.0
[2022-11-25 12:44] LABS: International Normalized Ratio 1.1; Prothrombin Time (Protime)PT. 13.7 SECONDS (11.7-14.9)
== END | disposition home or self-care (01) ==
LOC: MFPLAB 09:57
PROVIDERS: PCP Family Medicine; Visit Provider Family Medicine
DX: I48.91 Unspecified atrial fibrillation (principal)
CPT/HCPCS: 36415; 85610

== ENCOUNTER → 2022-12-01 | Outpatient (CLI) | payer MEDICARE, OTHER, SELFPAY ==
[2020-09-11 14:08] VITALS: BMI 31.0
[2022-12-01 10:10] LABS: Absolute Lymphocyte Count 2.18 X10^3/uL (0.83-4.51); Basophil# 0.06 X10^3/uL; Basophil% 0.7 % (0-1); Eosinophil# 0.03 X10^3/uL; Eosinophils% 0.3 % (0-5); Hematocrit 48.1 % (37-47); Hemoglobin 15.3 g/dL (12.0-15.0); Lymphocyte # 2.18 X10^3/ul (0.83-4.51); Lymphocyte % 23.7 % (19-41); Mean Corp Hgb Conc 31.8 g/dL (32-36); Mean Corpuscular Volume 87.9 fL (81-99); Mean Platelet Vol. 10.1 fl (6.2-12.0); Monocyte# 0.75 X10^3/uL; Monocyte% 8.2 % (0-10); NRBC Flagged by Analyzer 0 % (0-5); Neutrophil # 6.04 X10^3/uL (2.7-7.7); Neutrophil % 65.7 % (47-70); Platelet Count 295 K/mm3 (150-450); RBC Distribution Width CV 14.1 % (11.6-14.6); RBC Distribution Width SD 45.6 fl (35.1-43.9); Red Blood Count 5.47 M/mm3 (4.2-5.4); White Blood Count 9.2 K/mm3 (4.4-11.0)
[2022-12-01 10:25] LABS: Partial Thromboplast Time 28.5 Seconds (24.1-36.2)
[2022-12-01 10:30] LABS: International Normalized Ratio 1.1; Prothrombin Time (Protime)PT. 14.6 SECONDS (11.7-14.9)
[2022-12-01 10:33] LABS: BUN 18 mg/dL (7-18); Creatinine, Serum 0.87 mg/dL (0.55-1.02); Glucose 123 mg/dL (74-106)
[2022-12-01 10:34] LABS: Albumin, Serum 3.8 g/dL (3.2-5.0); Anion Gap 5 (5-15); BUN/Creat Ratio 20.6 RATIO (10-20); Calcium,Total 8.8 mg/dL (8.5-10.1); Chloride 109 mmol/L (98-107); EST Glomerular Filtration Rate 67 mL/min (>60); Est Glom Filt Rate - Afr Amer 81 mL/min (>60); Potassium 4.2 mmol/L (3.5-5.1); Sodium Level 141 mmol/L (136-145)
== END | disposition home or self-care (01) ==
PROVIDERS: PCP Family Medicine; Referring Provider Specialist; Visit Provider Specialist
DX: Z01.810 Encounter for preprocedural cardiovascular examination (principal); I48.91 Unspecified atrial fibrillation; M16.12 Unilateral primary osteoarthritis, left hip; M70.62 Trochanteric bursitis, left hip
CPT/HCPCS: 36415; 80048; 82040; 85025; 85610; 85730; 93005

== ENCOUNTER 2022-12-29 12:39 | Outpatient (RCR) | payer MEDICARE, OTHER, SELFPAY ==
[2020-09-11 14:08] VITALS: BMI 31.0
[2022-11-28 01:17] VITALS: BMI 31.4
[2022-12-29 15:52] LABS: International Normalized Ratio 1.2; Prothrombin Time (Protime)PT. 14.8 SECONDS (11.7-14.9)
== END 2022-12-29 13:39 | disposition home or self-care (01) ==
LOC: MTLAB 12:39
PROVIDERS: Specialist; PCP Family Medicine; Referring Provider Family Medicine; Visit Provider Family Medicine
DX: I48.91 Unspecified atrial fibrillation (principal); Z01.818 Encounter for other preprocedural examination
CPT/HCPCS: 85610

== ENCOUNTER 2023-01-10 14:32 | Outpatient (RCR) | payer MEDICARE, OTHER, SELFPAY ==
[2020-09-11 14:08] VITALS: BMI 31.0
[2022-12-30 08:13] VITALS: BMI 31.4
[2023-01-10 18:17] LABS: International Normalized Ratio 1.6; Prothrombin Time (Protime)PT. 19.1 SECONDS (11.7-14.9)
== END 2023-01-28 23:59 ==
LOC: MFPLAB 14:32
PROVIDERS: PCP Family Medicine; Referring Provider Family Medicine; Visit Provider Family Medicine
DX: I48.91 Unspecified atrial fibrillation (principal); Z79.01 Long term (current) use of anticoagulants
CPT/HCPCS: 36415; 85610

== ENCOUNTER → 2023-02-10 | Outpatient (CLI) | payer MEDICARE, OTHER, SELFPAY ==
[2020-09-11 14:08] VITALS: BMI 31.0
[2023-02-10 11:15] LABS: International Normalized Ratio 2.2
== END | disposition home or self-care (01) ==
LOC: MFPLAB 09:14
PROVIDERS: PCP Family Medicine; Visit Provider Family Medicine
DX: I48.91 Unspecified atrial fibrillation (principal)
CPT/HCPCS: 36415; 85610

== ENCOUNTER → 2023-03-03 | Outpatient (CLI) | payer MEDICARE, OTHER, SELFPAY ==
[2020-09-11 14:08] VITALS: BMI 31.0
== END | disposition home or self-care (01) ==
PROVIDERS: PCP Family Medicine; Visit Provider Family Medicine
DX: N39.0 Urinary tract infection, site not specified (principal)
CPT/HCPCS: 87086

== ENCOUNTER → 2023-03-25 | Outpatient (CLI) | payer MEDICARE, OTHER, SELFPAY ==
[2020-09-11 14:08] VITALS: BMI 31.0
--- NOTE | 2023-03-25 13:51 | CT_ITS ---
EXAM: CT ABDOMEN AND PELVIS WITHOUT AND WITH INTRAVENOUS CONTRAST CLINICAL INDICATION: GROSS HEMATURIA TECHNIQUE: Helically acquired images were obtained of the abdomen and pelvis without and with intravenous contrast. This CT exam was performed using one or more of the following dose reduction techniques: automated exposure control, adjustment of the mA and/or kV according to patient size, and/or use of iterative reconstruction technique. CONTRAST: 100mL Isovue 370 RADIATION DOSE: CTDIvol = 32.51 mGy, DLP = 3101.13 mGy-cm COMPARISON: CT abdomen and pelvis with without contrast 11/08/2018. FINDINGS: LOWER THORAX: Unremarkable. Lung bases are clear. No cardiomegaly. No significant pericardial effusion. ABDOMEN: LIVER: Multiple nonenhancing cysts in the liver are unchanged. Mild hepatomegaly measuring 19 4 cm long. This is unchanged. GALLBLADDER AND BILE DUCTS: Unremarkable. No calcified gallstones. No gallbladder distention or wall edema. No intra- or extrahepatic biliary ductal dilation. PANCREAS: Unremarkable. No focal cystic or solid mass. SPLEEN: Unremarkable. Normal size without focal cystic or solid mass. ADRENALS: Unremarkable. No nodules. KIDNEYS AND URETERS: Increased size of nonobstructing stone in the right kidney measuring 1.4 cm, previously 1.2 cm. No right hydronephrosis. 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 No suspicious left hydronephrosis. Small subcentimeter right lower renal pole cyst is unchanged. STOMACH AND BOWEL: Scattered diverticula in the colon without diverticulitis. No stomach or bowel distention. PELVIS: APPENDIX: Normal sized appendix containing small appendicolith. BLADDER: Unremarkable. REPRODUCTIVE: Unremarkable as visualized. No mass. ABDOMEN and PELVIS: INTRAPERITONEAL SPACE: Unremarkable. No ascites or other fluid collection. No free air. BONES/JOINTS: Mild degenerative anterolisthesis of L4 on L5. Minimal degenerative retrolisthesis of L1 on L2. Minimal anterior wedging of the upper T11 body. Bilateral metallic hip arthroplasties causing extensive metallic streak artifacts and obscuring the lower central pelvis structures. No suspicious lytic or blastic abnormality. SOFT TISSUES: Unremarkable. No discrete abdominal or pelvic wall hernia. VASCULATURE: Unremarkable. Abdominal aorta is non-dilated. LYMPH NODES: Unremarkable. No enlarged lymph nodes. CT/CT Abd/Pelvis W/WO Contrast IMPRESSION: 1. Increase in size of nonobstructing stone in the right kidney measuring 1.4 cm, previously 1.2 cm. 2. Increased size of left lower renal stone measuring 2.5 x 1.3 cm, previously 1.3 x 0.5 cm. 3. No hydronephrosis in both kidneys. 4. Small nonenhancing right lower renal pole cyst is unchanged. 5. Colonic diverticulosis without diverticulitis. 6. Mild hepatomegaly with multiple nonenhancing cysts in the liver were present previously. Some of the cysts have increased in size but they remain nonenhancing. 7. Urinary bladder is obscured by dense metallic streak artifacts coming from bilateral metallic hip arthroplasty. Cystoscopy may be more helpful for further evaluation. 8. Small appendicolith but no acute appendicitis. Electronically Signed: Luis Fernando Dominguez MD at 15:42 EDT ,
== END | disposition home or self-care (01) ==
LOC: CT 13:47
PROVIDERS: PCP Family Medicine; Referring Provider Urology; Visit Provider Urology
DX: R31.0 Gross hematuria (principal)
CPT/HCPCS: 74178; Q9967

== ENCOUNTER 2023-05-04 09:45 | Observation (INO) | payer MEDICARE, OTHER, SELFPAY ==
[2020-09-11 14:08] VITALS: BMI 31.0
[2023-05-04] VITALS (11 sets, daily range): BP systolic 98–140; BP diastolic 45–90; PULSE 60–82; RESP 14–20; TEMP 36.1–37.1; O2SAT 92–98; BMI 37.0
[2023-05-04 06:14] LABS: Prothrombin Time Fingerstick 11.9 SEC (11.7-14.9)
[2023-05-04] MEDS: Lactated Ringers 1,000 ML 15 ML IV ×2 (06:45→09:30)
--- NOTE | 2023-05-04 07:13 | PCM.HP.STD ---
HPI - General General Date of Service: 05/04/23 Chief Complaint: Left staghorn calculus HPI Narrative HOLLI SEVILLA, is a 77 F who presents for a percutaneous nephrostolithotomy and removal of a left staghorn calculus [facility] Medical History (Updated 05/04/23 @ 07:[address] Hima Condon MD) Abnormal mammogram of right breast Afib Anxiety Arthritis Back pain Breast cancer, right Chronic insomnia Coronary artery dilation Cystitis Depression Elevated alkaline phosphatase level ER+ (estrogen receptor positive status) Gastritis High cholesterol History of atrial fibrillation History of edema Hyperlipidemia Hypertension Mood swings Non-smoker Osteopenia Wears glasses Home Medications ascorbic acid (vitamin C) 1,000 mg tablet 1 g PO BID 08/27/20 [History Last Taken 05/03/23] cholecalciferol (vitamin D3) 25 mcg (1,000 unit) capsule 50 mcg PO DAILY 08/27/20 [History Last Taken 05/03/23] diltiazem HCl 240 mg capsule,extended release 24 hr, controlled 240 mg PO DAILY 08/27/20 [History Last Taken 05/04/23] methenamine hippurate 1 gram tablet 1 g PO BID 08/27/20 [History Last Taken 05/03/23] pravastatin 80 mg tablet 80 mg PO DAILY 08/27/20 [History Last Taken 05/03/23] sertraline 50 mg tablet 75 mg PO DAILY 08/27/20 [History Last Taken 05/03/23] trazodone 50 mg tablet 50 mg PO QHS 08/27/20 [History Last Taken 05/03/23] magnesium 250 mg tablet 500 mg PO DAILY 09/15/20 [History Last Taken 05/03/23] multivitamin 1 each PO DAILY 09/15/20 [History Last Taken 05/03/23] warfarin 2 mg tablet 3 mg PO DAILY 02/19/21 [History Last Taken 04/28/23] diazepam 2 mg tablet ea PO 02/23/22 [History Last Taken Unknown] anastrozole 1 mg tablet 1 mg PO DAILY #90 tabs 08/30/22 [Rx Last Taken 05/04/23] nortriptyline 25 mg capsule 25 mg PO DAILY 08/30/22 [History Last Taken 04/30/23] pregabalin 75 mg capsule 75 mg PO DAILY 08/30/22 [History Last Taken 05/03/23] calcium 500 mg tablet 1,000 mg PO DAILY 04/21/23 [History Last Taken 05/03/23] hydrocodone-acetaminophen 5-325mg 5mg-325mg tab 05/04/23 [History Last Taken 05/03/23] Allergy/AdvReac Type Severity Reaction Status Date / Time ciprofloxacin Allergy Unknown unknown Verified 05/04/23 06:22 Sulfa (Sulfonamide Allergy Unknown unknown Verified 05/04/23 06:22 Antibiotics) Family History Mother Hypertension Afib Sister Afib Hypertension Surgical History History of ankle surgery History of hip replacement, total History of lumpectomy of right breast History of right breast biopsy (~09/02/20) Hx of breast biopsy Hx of cataract extraction Hx of cholecystectomy Hx of right breast biopsy Social History Smoking Status: Never smoker second hand exposure: No alcohol intake: current alcohol intake frequency: a few times a month Alcohol type: wine substance use type: does not use diet: Weight Watchers caffeine: Yes what type of physical activity do you participate in: swimming and aerobics frequency: other ROS Constitutional Constitutional: Denies chills, fever(s) or malaise Eyes Eyes: Denies blurry vision or change in vision ENT HEENT: Reports none Cardiovascular Cardiovascular: Denies chest pain or palpitations Respiratory/Chest Respiratory/Chest: Denies cough or shortness of breath with exertion Gastrointestinal Gastrointestinal: Denies abdominal pain, constipation or diarrhea Musculoskeletal Musculoskeletal: Denies back pain, joint stiffness or joint swelling Integumentary Integumentary: Denies dry skin, jaundice, lesions or rash Neurologic Neurologic: Denies confusion, syncope or weakness Psychiatric Psychiatric: Reports none; Denies anxiety or depression Endocrine Endocrinology: Denies excessive sweating, fatigue or flushing Hematologic/Lymphatic Hematologic/Lymphatic: Denies anemia, easy bleeding or easy bruising Vital Signs Vital Signs Vital Signs: 05/04/23 06:26 05/04/23 06:26 Temperature 97.9 F Temperature Source Temporal Pulse Rate 69 Respiratory Rate 18 Respiratory Pattern Normal Blood Pressure 117/69 Blood Pressure Mean 85 Blood Pressure Source Monitor Blood Pressure Position Semi-Fowlers Blood Pressure Location Left Arm Pulse Ox 94 Oxygen Delivery Method Room Air Weight Weight: 104 kg Body Mass Index (BMI) 37.0 Physical Exam Const alert and oriented x3 General Appearance: cooperative HEENT normocephalic and head/scalp atraumatic Eyes PERRL and EOMs intact bilaterally Neck supple, no JVD and no carotid bruits Resp normal respiratory effort, normal air movement and clear to auscultation bilaterally Cardio regular rate and no murmurs GI normal to inspection, nondistended, normoactive bowel sounds and soft to palpation Extremity normal capillary refill General Extremity: no tenderness to palpation of joints or extremities; Negative for edema Skin no rashes or lesions noted and no wounds General Skin Exam: no breakdown Neuro CN's II-XII intact bilaterally Psych affect normal Appearance: appropriate Results Lab / Micro Data Labs: Laboratory Results - last 24 hr 05/04/23 06:11: POC PT 11.9, INR 1.0 Assessment & Plan Assessment/Plan (1) Kidney stone on left side: PLAN: Plan to proceed with a left percutaneous nephrostolithotomy for left staghorn calculus over 2.5 cm in size
[2023-05-04] MEDS: Cefazolin 2 GM in 0.9% Normal Saline (100mL Bag) 100 ML IV (07:35)
--- NOTE | 2023-05-04 08:04 | SUR.PREOP ---
PATIENT TOLD THIS NURSE THAT THEY USE HER RIGHT ARM FOR IV'S FOR OTHER PROCEDURES. PATIENT DID NOT HAVE ANY LYMPH NODES REMOVED WITH HER MASSECTOMY. DR. RYAN WAS OK WITH USING THAT ARM IF PATIENT IS OK WITH IT AND REQUESTS IT.
[2023-05-04] MEDS: Bupivacaine Mpf 0.5% 30 ML VIAL (08:52)
--- NOTE | 2023-05-04 09:05 | DCINST_ITS ---
Discharge Instructions Diet Discharge Diet: No restrictions and Light diet - advance as tolerated Activity Discharge Activity: Return to Normal Activity Dressing / Incision Call your doctor if your incision/area has: Continuous Slow Oozing Follow Up Care Please Follow Up With: Hima Condon MD When: call for appt. Test Results: Test results from this visit will be discussed in further detail at your follow- up appointment, if applicable. Discharge Plan Admission Primary Reason for Your Visit: Percutaneous removal of left kidney stone Attending Provider: Hima Condon Primary Care Provider: Meliton Lindsey Discharge Orders/Prescriptions Prescriptions: New docusate sodium [Colace] 100 mg capsule 100 mg PO BID Qty: 20 0RF oxycodone 5 mg tablet 5 mg PO Q6H PRN (Reason: pain) 7 Days Qty: 14 0RF cephalexin 500 mg capsule 500 mg PO TID Qty: 15 0RF Continued diltiazem HCl 240 mg capsule,ext.rel 24h degradable 240 mg PO DAILY pravastatin 80 mg tablet 80 mg PO DAILY Patient Comments: TAKE 1 TABLET BY MOUTH EVERY DAY sertraline 50 mg tablet 75 mg PO DAILY Patient Comments: TAKE 1 TABLET BY MOUTH EVERY DAY methenamine hippurate 1 gram tablet 1 g PO BID Patient Comments: TAKE 1 TABLET BY MOUTH TWICE A DAY TAKE WITH VITAMIN C 1000MG FOR UTI PREVENTION trazodone 50 mg tablet 50 mg PO QHS Patient Comments: TAKE 1 TABLET BY MOUTH EVERYDAY AT BEDTIME cholecalciferol (vitamin D3) 25 mcg (1,000 unit) capsule 50 mcg PO DAILY ascorbic acid (vitamin C) 1,000 mg tablet 1 g PO BID diazepam 2 mg tablet PO Patient Comments: TAKE 1 TABLET BY MOUTH 3 TIMES A DAY anastrozole 1 mg tablet 1 mg PO DAILY Qty: 90 3RF pregabalin 75 mg capsule 75 mg PO DAILY nortriptyline 25 mg capsule 25 mg PO DAILY multivitamin 1 EACH tablet 1 each PO DAILY magnesium 250 MG tablet 500 mg PO DAILY calcium 500 mg tablet 1,000 mg PO DAILY hydrocodone-acetaminophen 5-325 mg tablet Held warfarin 2 mg tablet 3 mg PO DAILY Hold Instructions: Resume on 05/11/23. Patient Comments: MON, WED, FRI 2 mg all other days Other Ambulatory Orders: 12 Lead EKG (Routine) Timeframe: [id number] Location: None Selected Ordered By: Dr. Kofi Del Toro Referrals / Follow Up: Hima Condon MD [Med Staff - Active Staff] - Meliton Lindsey MD [Primary Care Provider] - Disposition Disposition (needs filled in before D/C Order can be placed): Home, Self Care
--- NOTE | 2023-05-04 09:05 | PCM.OPRPT ---
Report of Operation Date of Procedure: 05/04/23 Pre-Operative Diagnosis: Large left staghorn calculus greater than 2.5 cm in size Post-Operative Diagnosis: The same Surgery/Procedure Performed:: Left percutaneous nephrostolithotomy, cystoscopy retrograde pyelogram, establishment of a percutaneous tract and nephrostomy tube placement Description of Surgical Findings:: 77-year-old female has a very large stone in the left kidney that measures about 2.6 cm in size and she has a very large stone recommended that we proceed with a percutaneous approach to get to the stone talked about the options of management 1 would be shockwave lithotripsy and laser lithotripsy both these procedures probably would require multiple surgeries given how big the stone would be we also talked about the risk of percutaneous approach increased including risk of bleeding infection risk that we could not get all the stones out she was still may require multiple procedures. Patient was taken back to the operating room at a smooth induction of anesthesia she was placed in dorsolithotomy position. The urethrovaginal area prepped and draped in usual sterile fashion when at the bladder with a 21 [place] rigid cystourethroscope the bladder was normal I then cannulated the left ureter orifice with a Glidewire advanced a wire up into the kidney and then over the Glidewire I advanced a 12 [place] 10 cm ureteral balloon dilator I then positioned the ureteral balloon dilator so that it was right at the UPJ but no further and then in the infield the balloon slightly with low-tension just to fill the balloon so that it would prevent any migration of stones down the ureter. And then we can use the balloon dilator to perform retrograde pyelograms. We then performed a retrograde could see the stone large stone in the lower pole extending into the renal pelvis and then the renal pelvis was stretched open with the retrograde left full renal pelvis. Then at this point Gifford catheter was placed and she was taken off the table and then switched to prone position with face down on the table making sure over her pressure points were padded. Then the left back and flank area were prepped and draped in usual fashion for percutaneous approach the left kidney. We then injected contrast a 50-50 solution into the kidney through the established ureteral access sheath that was still in place this distended the renal pelvis of the left kidney I could see the stone in the lower pole the left kidney I then used triangulation technique and triangulated the needle axis as an 18-gauge two-part needle to get into the lower pole the kidney once this was established then I put a wire through this and it coiled in the renal pelvis. And then once a while the renal pelvis and over the wire we advanced a 30 [place] balloon dilator and balloon dilated the track into the lower pole axis of the left kidney once this was established then I advanced the access sheath over the balloon dilator to go into the kidney then the balloon dilator was deflated we left the wire in place then through the access sheath. Taking his percutaneous access that was established then through the established tract that was created then I went in with the nephroscope and we encountered the large stone and then we used the ultrasonic lithotripter to perform lithotripsy and at the same time suction out the fragments took about half an hour to 45 minutes to completely break up the stone and sucked out all the fragments once the stone was completely removed then I used a flexible cystoscope to inspect the upper pole midpole lower pole the kidney no other major fragments were seen I performed a retrograde no other fragments were seen under x-ray I can see any other major fragments went back in with the nephroscope and again inspected and there was no other fragments seen in the kidney that at this point a 18 [place] catheter was put into do a nephrostomy tube into the left kidney we put 3 cc in the balloon I put Floseal around the catheter for hemostasis and then we secured the catheter to the skin we removed the access sheath for the nephrostomy tube and left the nephrostomy tube in place and then we also removed the balloon dilator from the ureter we performed another nephrostogram and there was contrast going straight down the ureter with no obstruction and was a successful removal of the stone completely from what I can tell at best possible both by x-ray flexible scope and nephroscope. Left the nephrostomy tube in place patient's anesthetic was reversed she was put supine on the table and then transferred back to the PACU in good condition we will keep overnight for observation. Surgeon: Hima Condon Type of Anesthesia: General Drains: nephrostomy tube and gifford Estimated Blood Loss (mL): 50 Admit VTE Documentation VTE Present on Admission: No VTE Mechan Device Prophylaxis: SCD's VTE Pharm Prophylaxis ordered?: No
[2023-05-04] MEDS: Ketorolac 15 MG/ML Vial IV (10:13)
[2023-05-04] MEDS: 0.9% Normal Saline (1000mL) 1,000 ML 125 ML IV ×2 (13:43→21:34)
[2023-05-04] MEDS: Cefazolin 1 GM/50 ML BAG IV ×2 (16:00→22:32)
[2023-05-04] MEDS: Ketorolac 30 MG/ML Syringe 15 MG IV (19:27)
[2023-05-04] MEDS: 0.9% Saline Lock 10 ML Syringe IV (19:27)
[2023-05-04] MEDS: Docusate Sodium 100 MG Capsule 200 MG PO (21:34)
[2023-05-04] MEDS: Mag Hydrox/Al Hydrox/Simeth 30 ML UDC PO (22:32)
[2023-05-04] MEDS: HYDROcodone Bitartrate/Apap 5/325 Tablet PO (22:35)
[2023-05-05 01:34] VITALS: BP 146/82; PULSE 77; RESP 16; TEMP 36.9; O2SAT 91
[2023-05-05] MEDS: Ketorolac 30 MG/ML Syringe 15 MG IV (03:58)
[2023-05-05] MEDS: Ondansetron 4 MG/2 ML Vial IV (03:59)
[2023-05-05] MEDS: 0.9% Saline Lock 10 ML Syringe IV ×2 (04:00→06:09)
[2023-05-05] MEDS: 0.9% Normal Saline (1000mL) 1,000 ML 125 ML IV (04:04)
[2023-05-05 05:34] VITALS: BP 146/82; PULSE 77; RESP 18; TEMP 36.9; O2SAT 92
[2023-05-05 05:58] LABS: Hematocrit 39.5 % (37-47); Hemoglobin 12.7 g/dL (12.0-15.0); Mean Corp Hgb Conc 32.2 g/dL (32-36); Mean Corpuscular Hgb 26.9 pg (27.0-32.0); Mean Corpuscular Volume 83.7 fL (81-99); Mean Platelet Vol. 10.4 fl (6.2-12.0); Platelet Count 179 K/mm3 (150-450); RBC Distribution Width CV 14.4 % (11.6-14.6); RBC Distribution Width SD 43.9 fl (35.1-43.9); Red Blood Count 4.72 M/mm3 (4.2-5.4); White Blood Count 12.7 K/mm3 (4.4-11.0)
[2023-05-05] MEDS: Metoclopramide 10 MG/2 ML Vial IV (06:07)
[2023-05-05] MEDS: HYDROcodone Bitartrate/Apap 5/325 Tablet PO ×2 (06:08→15:34)
[2023-05-05 06:28] LABS: Anion Gap 4 (5-15); BUN 14 mg/dL (7-18); BUN/Creat Ratio 17.5 RATIO (10-20); Calcium,Total 8.2 mg/dL (8.5-10.1); Chloride 113 mmol/L (98-107); EST Glomerular Filtration Rate 74 mL/min (>60); Est Glom Filt Rate - Afr Amer 90 mL/min (>60); Estimated Creatinine Clearance 56.01 ml/min; Glucose 160 mg/dL (74-106); Potassium 4.1 mmol/L (3.5-5.1); Sodium Level 142 mmol/L (136-145)
--- NOTE | 2023-05-05 07:16 | PN.URO_ITS ---
Subjective Subjective Status post left percutaneous removal of a large staghorn calculus, nephrostomy tube was clamped this morning by myself, we can have her catheter removed, Hep- Lock IV fluids, Tylenol for headache, Pepcid for heartburn, ambulate. And then later this afternoon I will come by if she is doing okay with a clamp nephros scotty tube we will remove the nephrostomy tube and should be able to go home without any tubes. Objective Data Objective Data Vital Signs: Vital Signs Temp Pulse Resp BP Pulse Ox O2 Del Method O2 Flow Rate 98.5 F 77 18 146/82 H 92 Room Air 2 05/05/23 05:34 05/05/23 05:34 05/05/23 05:34 05/05/23 05:34 05/05/23 05:34 05/05/23 05:34 05/04/23 15:34 Oxygen Flow Rate (L/min) 2 Oxygen Delivery Method Room Air Weight: 104 kg Body Mass Index (BMI) 37.0 Intake & Output: Intake and Output for Last 24 Hours 05/03/23 05/04/23 05/05/23 23:59 23:59 23:59 Intake Total 2149.59 / 2649.59 2040.75 / 2040.75 Output Total 2100 / 2650 1100 / 1100 Balance 49.59 / -0.41 940.75 / 940.75 Lab / Micro Data 05/05/23 05:35 05/05/23 05:35 Labs: Laboratory Results - last 24 hr 05/05/23 05:35: WBC 12.7 H, RBC 4.72, Hgb 12.7, Hct 39.5, MCV 83.7, MCH 26.9 L, MCHC 32.2, RDW Std Deviation 43.9, RDW Coeff of Leno 14.4, Plt Count 179, MPV 10.4, Sodium 142, Potassium 4.1, Chloride 113 H, Carbon Dioxide 25.0, Anion Gap 4 L, BUN 14, Creatinine 0.80, Estim Creat Clear Calc 56.01, Est GFR (MDRD) Af Amer 90, Est GFR (MDRD) Non-Af 74, BUN/Creatinine Ratio 17.5, Glucose 160 H, Calcium 8.2 L
[2023-05-05] MEDS: Acetaminophen 500 MG Tablet PO ×2 (08:00→22:19)
[2023-05-05 08:05] VITALS: BP 127/69; PULSE 75; RESP 18; TEMP 36.8; O2SAT 91
[2023-05-05] MEDS: Famotidine 20 MG Tablet PO ×2 (08:13→22:13)
[2023-05-05] MEDS: Docusate Sodium 100 MG Capsule 200 MG PO ×2 (08:14→22:13)
[2023-05-05] MEDS: Flu Vacc QS2023-24(65YR UP)/PF 240 MCG/0.7 ML Syringe IM (09:08)
[2023-05-05 15:05] VITALS: BP 127/64; PULSE 65; RESP 16; TEMP 36.8; O2SAT 98
--- NOTE | 2023-05-05 16:50 | CASEMGMT ---
Met with patient to complete WILLOUGHBY form. [employer]BY form explained to patient who voiced understanding and signed form. Original form placed in pt?s chart and copy provided to patient. Emi Nicolas, Discharge Planning Asst.
[2023-05-06 03:55] VITALS: BP 118/80; PULSE 88; RESP 16; TEMP 36.7; O2SAT 98
[2023-05-06] MEDS: Acetaminophen 500 MG Tablet PO (04:20)
[2023-05-06] MEDS: HYDROcodone Bitartrate/Apap 5/325 Tablet PO (08:06)
[2023-05-06] MEDS: Docusate Sodium 100 MG Capsule 200 MG PO (08:09)
[2023-05-06] MEDS: Famotidine 20 MG Tablet PO (08:10)
[2023-05-06 09:55] VITALS: BP 125/81; PULSE 82; RESP 16; TEMP 36.6; O2SAT 94
--- NOTE | 2023-05-06 10:51 | PHA.DC_ITS ---
Pharmacy [facility] Pharm[facility] Service has performed discharge medication reconciliation and counseling for this patient. The patient was counseled on the following discharge medications and changes in medications for homegoing were reviewed. 1. KEFLEX 2. OXYCODONE --> INFORMED NOT TO TAKE WITH HOME NORCO. PT VERBALIZED UNDERSTANDING 3. COLACE 4. COUMADIN --> HOLD UNTIL 05/11/23 The Reason for Use, instructions for use, and potential side effects were reviewed for all new medications. The patient's questions regarding all of their medications were answered. The patient was able to verbally demonstrate an understanding of their discharge medications. The patient's discharge medication list was reviewed for discrepancies and discrepancies were resolved. Medications at Discharge Home Medications ascorbic acid (vitamin C) 1,000 mg tablet 1 g PO BID 08/27/20 cholecalciferol (vitamin D3) 25 mcg (1,000 unit) capsule 50 mcg PO DAILY 08/27/20 diltiazem HCl 240 mg capsule,extended release 24 hr, controlled 240 mg PO DAILY 08/27/20 methenamine hippurate 1 gram tablet 1 g PO BID 08/27/20 pravastatin 80 mg tablet 80 mg PO DAILY 08/27/20 sertraline 50 mg tablet 75 mg PO DAILY 08/27/20 trazodone 50 mg tablet 50 mg PO QHS 08/27/20 magnesium 250 mg tablet 500 mg PO DAILY 09/15/20 multivitamin 1 each PO DAILY 09/15/20 warfarin 2 mg tablet 3 mg PO DAILY 02/19/21 diazepam 2 mg tablet ea PO 02/23/22 anastrozole 1 mg tablet 1 mg PO DAILY #90 tabs 08/30/22 nortriptyline 25 mg capsule 25 mg PO DAILY 08/30/22 pregabalin 75 mg capsule 75 mg PO DAILY 08/30/22 calcium 500 mg tablet 1,000 mg PO DAILY 04/21/23 cephalexin 500 mg capsule 500 mg PO TID #15 caps 05/04/23 docusate sodium 100 mg capsule (Colace) 100 mg PO BID #20 caps 05/04/23 hydrocodone-acetaminophen 5-325mg 5mg-325mg tab 05/04/23 oxycodone 5 mg tablet 5 mg PO Q6H PRN pain 7 days #14 tabs 05/04/23
== END 2023-05-06 11:22 | disposition home or self-care (01) ==
LOC: SDC 13:11 → MS3 13:11
PROVIDERS: Admitting Provider Urology; PCP Family Medicine; Referring Provider Urology; Visit Provider Urology
PROC: (CPT 50081; principal; 2023-05-04 07:15)
DX: N20.0 Calculus of kidney (principal); I48.91 Unspecified atrial fibrillation; Z79.01 Long term (current) use of anticoagulants; I10 Essential (primary) hypertension; E78.00 Pure hypercholesterolemia, unspecified; Z79.899 Other long term (current) drug therapy; F32.A Depression, unspecified; F41.9 Anxiety disorder, unspecified; Z23 Encounter for immunization
CPT/HCPCS: 50081; 00862; 36415; 36416; 76000; 80048; 85027; 85610; 93005; 96361; 96365; 96366; 96375; 96376; 99221; G0008; J7030; J7120; 90662; A4216; C1769; G0378; J2405

== ENCOUNTER → 2023-07-05 | Outpatient (CLI) | payer MEDICARE, OTHER, SELFPAY ==
[2020-09-11 14:08] VITALS: BMI 31.0
[2023-07-05 10:21] LABS: International Normalized Ratio 1.2; Prothrombin Time (Protime)PT. 14.8 SECONDS (11.7-14.9)
== END | disposition home or self-care (01) ==
LOC: MFPLAB 08:38
PROVIDERS: PCP Family Medicine; Visit Provider Family Medicine
DX: I48.91 Unspecified atrial fibrillation (principal)
CPT/HCPCS: 36415; 85610

== ENCOUNTER → 2023-08-04 | Outpatient (CLI) | payer MEDICARE, OTHER, SELFPAY ==
[2020-09-11 14:08] VITALS: BMI 31.0
[2023-08-04 10:56] LABS: Hemoglobin A1c 5.8 % (3.8-5.6)
[2023-08-04 11:06] LABS: Anion Gap 5 (5-15); BUN 21 mg/dL (7-18); Calcium,Total 9.4 mg/dL (8.5-10.1); Chloride 108 mmol/L (98-107); Cholesterol 188 mg/dL (200); Creatinine, Serum 0.92 mg/dL (0.55-1.02); EST Glomerular Filtration Rate 63 mL/min (>60); Est Glom Filt Rate - Afr Amer 77 mL/min (>60); Glucose 106 mg/dL (74-106); High Density Lipoprotein 59 mg/dL; Potassium 4.1 mmol/L (3.5-5.1); Sodium Level 141 mmol/L (136-145); Thyroid Stim Hormone (TSH) 0.75 uIU/mL (0.358-3.74); Triglycerides 106 mg/dL; Very Low Density Lipoprotein 21 mg/dL (5-40)
== END | disposition home or self-care (01) ==
LOC: LAB.FUTURE 08:48
PROVIDERS: PCP Family Medicine; Visit Provider Family Medicine
DX: I48.91 Unspecified atrial fibrillation (principal); R73.9 Hyperglycemia, unspecified; F32.A Depression, unspecified; E78.5 Hyperlipidemia, unspecified
CPT/HCPCS: 36415; 80048; 80061; 83036; 84443

== ENCOUNTER → 2023-08-24 | Outpatient (CLI) | payer MEDICARE, OTHER, SELFPAY ==
[2020-09-11 14:08] VITALS: BMI 31.0
--- NOTE | 2023-08-24 09:08 | BI_ITS ---
MAMMOGRAPHY - BILATERAL SCREENING REASON FOR EXAM: Female, 78 years old. Routine annual screening examination. PERTINENT HISTORY: Personal history of breast cancer. Prior right lumpectomy and radiation therapy. TECHNIQUE: Digital bilateral breast jesus (3D mammographic acquisition) in the CC and MLO projections. 2-D mediolateral oblique (MLO) and craniocaudad (CC) views of both breasts were obtained. CAD: Full Field Digital Mammography with Computer Added Detection was performed. COMPARISON: Comparison is made with prior study dated August 23, 2022 and August 21, 2021. FINDINGS: Breast Composition: There are scattered areas of fibroglandular density. There are no dominant masses or suspicious calcifications. The patient is status post lumpectomy in the superior retroareolar region of the right breast. Stable postoperative scarring is seen. Stable surgical clips are seen in the right axilla. No other significant abnormalities are identified. There has been no significant change since the prior study. BI/SCRN MAMM (CAD)W/JESUS BILAT IMPRESSION: Stable bilateral screening mammogram. Yearly follow-up mammogram recommended. (A) ASSESSMENT CATEGORY: BIRADS Category 2: Benign. A letter regarding these results will be sent to the patient by the facility within 30 days. Approximately 10% of breast cancers are not detected by mammography. A normal mammogram should not delay biopsy of a clinically suspicious abnormality. [id number] Electronically Signed: Andrés Muse MD at 13:58 EST ,
== END | disposition home or self-care (01) ==
LOC: OPBI 09:08
PROVIDERS: PCP Family Medicine; Referring Provider Student in an Organized Health Care Education/Training Program; Visit Provider Student in an Organized Health Care Education/Training Program
DX: Z12.31 Encounter for screening mammogram for malignant neoplasm of breast (principal)
CPT/HCPCS: 77063; 77067

== ENCOUNTER → 2023-10-11 | Outpatient (CLI) | payer MEDICARE, OTHER, SELFPAY ==
[2020-09-11 14:08] VITALS: BMI 31.0
[2023-10-11 16:04] LABS: International Normalized Ratio 1.2; Prothrombin Time (Protime)PT. 14.7 SECONDS (11.7-14.9)
== END | disposition home or self-care (01) ==
LOC: MFPLAB 10:32
PROVIDERS: PCP Family Medicine; Visit Provider Family Medicine
DX: I48.91 Unspecified atrial fibrillation (principal)
CPT/HCPCS: 36415; 85610

== ENCOUNTER → 2023-11-07 | Outpatient (CLI) | payer MEDICARE, OTHER, SELFPAY ==
[2020-09-11 14:08] VITALS: BMI 31.0
--- NOTE | 2023-11-07 09:18 | RAD_ITS ---
STUDY: X-RAY - ABDOMEN/PELVIS REASON FOR EXAM: Female, 78 years old. Calculus of kidney TECHNIQUE: Two AP supine views of the abdomen and pelvis. COMPARISON: CT of abdomen and pelvis dated March 25, 2023 FINDINGS: Normal visualized lung bases. There is an unremarkable bowel gas pattern. A 1.27 cm stone in the midpole of the right kidney is redemonstrated. Normal soft tissue structures. Stable bilateral hip prostheses. Stable visualized osseous structures. RAD/Abdomen Single View IMPRESSION: 1. A 1.27 cm stone in the midpole of the right kidney is redemonstrated. Electronically Signed: Mitesh Diggs MD at 14:15 EDT ,
== END | disposition home or self-care (01) ==
LOC: RAD 09:17
PROVIDERS: PCP Family Medicine; Referring Provider Urology; Visit Provider Urology
DX: N20.0 Calculus of kidney (principal)
CPT/HCPCS: 74018

== ENCOUNTER 2023-11-29 20:10 | Emergency (ER) | payer MEDICARE, OTHER, SELFPAY ==
[2020-09-11 14:08] VITALS: BMI 31.0
[2023-11-29 20:10] VITALS: BP 147/94; PULSE 114; RESP 18; TEMP 36.4; O2SAT 100; BMI 38.7
[2023-11-29 20:57] LABS: Absolute Lymphocyte Count 0.57 X10^3/uL (0.83-4.51); Absolute Neutrophil Count 5.2 X10^3/uL (2.0-7.7); Basophil# 0.01 X10^3/uL; Basophil% 0.2 % (0-1); Eosinophil# 0.01 X10^3/uL; Eosinophils% 0.2 % (0-5); Hematocrit 42.7 % (37-47); Hemoglobin 13.6 g/dL (12.0-15.0); Lymphocyte # 0.57 X10^3/ul (0.83-4.51); Lymphocyte % 9.4 % (19-41); Mean Corp Hgb Conc 31.9 g/dL (32-36); Mean Corpuscular Hgb 27.4 pg (27.0-32.0); Mean Corpuscular Volume 85.9 fL (81-99); Mean Platelet Vol. 10.5 fl (6.2-12.0); Monocyte# 0.24 X10^3/uL; Monocyte% 3.9 % (0-10); NRBC Flagged by Analyzer 0 % (0-5); Neutrophil # 5.23 X10^3/uL (2.7-7.7); Neutrophil % 85.8 % (47-70); POSITIVE DIFFERENTIAL YES; Platelet Count 166 K/mm3 (150-450); RBC Distribution Width CV 13.2 % (11.6-14.6); RBC Distribution Width SD 41.1 fl (35.1-43.9); Red Blood Count 4.97 M/mm3 (4.2-5.4); White Blood Count 6.1 K/mm3 (4.4-11.0)
[2023-11-29 21:03] LABS: Differential Indicated SCAN CRITERIA MET
[2023-11-29 21:19] LABS: AST(SGOT) 23 U/L (15-37); Alanine Aminotransfer ALT/SGPT 23 U/L (13-56); Albumin, Serum 3.4 g/dL (3.2-5.0); Alkaline Phosphatase 77 U/L (45-117); Anion Gap 5 (5-15); BUN 13 mg/dL (7-18); BUN/Creat Ratio 13.9 RATIO (10-20); Calcium,Total 8.5 mg/dL (8.5-10.1); Chloride 108 mmol/L (98-107); Creatinine, Serum 0.94 mg/dL (0.55-1.02); EST Glomerular Filtration Rate 61 mL/min (>60); Est Glom Filt Rate - Afr Amer 74 mL/min (>60); Estimated Creatinine Clearance 62.55 ml/min; Globulin 3.3 g/dL (2.2-4.2); Glucose 122 mg/dL (74-106); Lipase 29 U/L (13-75); Protein, Total 6.7 g/dL (6.4-8.2); Sodium Level 139 mmol/L (136-145)
[2023-11-29 21:28] LABS: Bacteria 0 SEEN /hpf (None Seen); Mucous, Urine 0 SEEN /hpf (<or=2+)
[2023-11-29 21:30] LABS: Color, Urine Yellow (Yellow); Glucose, Dipstick Normal (Normal); Ketone-Dipstick 5 mg/dl (Negative); Leukocyte Esterase-Dipstick 500 /ul (Negative); Nitrite-Dipstick Negative (Negative); Occult Blood-Urine 50 /ul (Negative); Protein-Dipstick 15 mg/dl (Negative); Specific Gravity, Urine 1.015 (1.002-1.030); Urine Bilirubin Dipstick Negative (Negative); Urine Clarity Clear (Clear); Urine Urobilinogen 1 mg/dl (Normal)
[2023-11-29 21:37] LABS: Red Blood Cells-Urine 5-10 SEEN /hpf (0-5); Squamous Epithelial Cells - UA 0-5 SEEN /hpf (5-10); White Blood Cells 5-10 SEEN /hpf (0-5)
[2023-11-29 21:46] LABS: Platelet Estimate ADEQUATE (ADEQ); Red Cell Morphology NORM C+C NORMAL (NORM C&C)
--- NOTE | 2023-11-29 21:46 | CT_ITS ---
STUDY: CT ABDOMEN AND PELVIS WITH CONTRAST REASON FOR EXAM: Female, 78 years old. rlq pain RADIATION DOSAGE (If Supplied By Facility): CTDIvol = ( 24.33 ) mGy, DLP = ( 1512.86 ) mGycm TECHNIQUE: Transaxial images were obtained from the dome of the diaphragm to the symphysis pubis without oral contrast. IV 100mL Isovue-370 was administered. Sagittal and coronal images were reconstructed. Individualized dose optimization techniques were used for this CT. COMPARISON: March 25, 2023 FINDINGS: Chronic bibasilar interstitial thickening.. The visualized portions of the heart are within normal limits. Liver is normal in size. There are multiple cysts of varying sizes. Bile ducts are not dilated although bladder not visualized consistent with cholecystectomy. Normal spleen. Normal pancreas. Normal bilateral adrenal glands. There are bilateral nonobstructing renal calculi. No renal obstruction or mass. . Tiny cyst in the lower pole of the right kidney Normal visualized stomach. Normal small intestine. Diverticular changes of the descending and sigmoid colon without evidence for acute diverticulitis. No evidence for acute appendicitis. Normal abdominal aorta. Normal inferior vena cava. Normal retroperitoneum. Incompletely distended thick walled bladder likely of no significance. Normal abdominal wall. Lumbar spine demonstrates degenerative change. Bilateral hip prostheses are noted CT/Abdomen/Pelvis W IV Cont ONLY IMPRESSION: Bilateral nephrolithiasis. No evidence for hydronephrosis or ureteral calculus Diverticular changes of the descending and sigmoid colon without evidence for acute diverticulitis Multiple hepatic cysts Electronically Signed: Ken Garcia MD at 22:29 EDT ,
--- NOTE | 2023-11-29 21:46 | ED.VIS.GI ---
HPI HPI - GI History of Present Illness Chief Complaint: Abd Pain Narrative Narrative: 78-year-old female presenting with right lower quadrant abdominal pain. This started today. It radiates to the right inguinal area. Patient states he has a history of kidney stones but describes aching. It has been constant all day. When she lays down her pain is improved but she states her stomach feels sour and she has dyspepsia and nausea. When she stands up it immediately starts to hurt with any kind of movement. No fevers at home. She is nauseous but cannot vomit. Denies diarrhea or constipation. She states that she has a kidney stone that is known that is supposed to be removed by Dr. Condon. This is a week from now or so. Patient denies dysuria or hematuria. [facility] Medical History Abnormal mammogram of right breast Afib Anxiety Arthritis Back pain Breast cancer, right Chronic insomnia Coronary artery dilation Cystitis Depression Elevated alkaline phosphatase level ER+ (estrogen receptor positive status) Gastritis High cholesterol History of atrial fibrillation History of edema Hyperlipidemia Hypertension Kidney stone Mood swings Non-smoker Osteopenia Wears glasses Home Medications ascorbic acid (vitamin C) 1,000 mg tablet 1 g PO BID 08/27/20 [History Last Taken 05/03/23] diltiazem HCl 240 mg capsule,extended release 24 hr, controlled 240 mg PO DAILY 08/27/20 [History Last Taken 05/04/23] methenamine hippurate 1 gram tablet 1 g PO BID 08/27/20 [History Last Taken 05/03/23] pravastatin 80 mg tablet 80 mg PO DAILY 08/27/20 [History Last Taken 05/03/23] sertraline 50 mg tablet 75 mg PO DAILY 08/27/20 [History Last Taken 05/03/23] trazodone 50 mg tablet 50 mg PO QHS 08/27/20 [History Last Taken 05/03/23] magnesium 250 mg tablet 500 mg PO DAILY 09/15/20 [History Last Taken 05/03/23] multivitamin 1 each PO DAILY 09/15/20 [History Last Taken 05/03/23] warfarin 2 mg tablet 3 mg PO DAILY 02/19/21 [History Last Taken 04/28/23] nortriptyline 25 mg capsule 25 mg PO DAILY 08/30/22 [History Last Taken 04/30/23] pregabalin 75 mg capsule 75 mg PO DAILY 08/30/22 [History Last Taken 05/03/23] calcium 500 mg tablet 1,000 mg PO DAILY 04/21/23 [History Last Taken 05/03/23] docusate sodium 100 mg capsule (Colace) 100 mg PO BID #20 caps 05/04/23 [Rx Last Taken Unknown] hydrocodone-acetaminophen 5-325mg 5mg-325mg 1 tab PO Q12H back and leg pain 05/04/23 [History Last Taken 05/03/23] anastrozole 1 mg tablet 1 mg PO DAILY BREAST CANCER #90 tabs 09/05/23 [Rx Last Taken Unknown] cholecalciferol (vitamin D3) 125 mcg (5,000 unit) tablet (Vitamin D3) 125 mcg PO DAILY 11/29/23 [History Last Taken Unknown] warfarin 1 mg tablet 1 mg PO .COMPLEX 11/29/23 [History Last Taken Unknown] warfarin 3 mg tablet 3 mg PO .COMPLEX 11/29/23 [History Last Taken Unknown] Allergy/AdvReac Type Severity Reaction Status Date / Time ciprofloxacin Allergy Unknown unknown Verified 11/29/23 20:10 Sulfa (Sulfonamide Allergy Unknown unknown Verified 11/29/23 20:10 Antibiotics) Family History Mother Hypertension Afib Sister Afib Hypertension Surgical History History of ankle surgery History of hip replacement, total History of lumpectomy of right breast History of right breast biopsy (~09/02/20) Hx of breast biopsy Hx of cataract extraction Hx of cholecystectomy Hx of right breast biopsy Social History Smoking Status: Never smoker second hand exposure: No alcohol intake: current alcohol intake frequency: a few times a month Alcohol type: wine substance use type: does not use diet: Weight Watchers caffeine: Yes what type of physical activity do you participate in: swimming and aerobics frequency: other ROS ROS ED Constitutional Constitutional ED: Denies chills, fever(s) or sweats Eyes Eyes: Denies blurry vision or change in vision ENT ENT ED: Denies ear pain or sore throat Cardiovascular Cardiovascular: Denies chest pain, palpitations or racing heartbeat Respiratory/Chest Respiratory/Chest: Denies cough, dyspnea or sputum Gastrointestinal Gastrointestinal: Reports abdominal pain and nausea; Denies constipation, diarrhea or vomiting Genitourinary Genitourinary ED: Denies dysuria, hematuria or urinary frequency Musculoskeletal Musculoskeletal: Denies arthralgias, myalgias or neck pain Integumentary Denies abscess, Abrasions or rash Neurologic Neurologic: Denies headache(s), paresthesias or weakness Psychiatric Psychiatric: Denies anxiety, depression, suicidal ideation or suicidal thoughts Endocrine Endocrinology: Denies polydipsia or polyuria EXAM Physical Exam Const Vital Signs: 11/29/23 20:10 11/29/23 22:10 Temperature 97.5 F L Temperature Source Temporal Pulse Rate 114 H 99 Respiratory Rate 18 16 Blood Pressure 147/94 H 135/80 H Blood Pressure Mean 111 98 Pulse Ox 100 100 Oxygen Delivery Method Room Air Positive well nourished General Appearance ED: NAD; Negative for pallor HEENT Reports moist mucous membranes Eyes PERRL and EOMs intact bilaterally Resp normal respiratory effort Cardio regular rate and regular rhythm GI Palpation: tender RLQ Back/Spine General Back: CVA tenderness right Neuro CN's II-XII intact bilaterally Sensorium / Orientation: alert, oriented to person, oriented to place and oriented to time Motor Exam: strength 5/5 throughout Psych mental status grossly normal Skin General Skin Exam: Negative for jaundice or pallor MDM MDM MDM Narrative Medical decision making narrative: Patient presenting with abdominal pain. Patient presenting with right flank pain. Differential includes colitis, diverticulitis, gastritis, pancreatitis, acute cholecystitis, constipation, appendicitis, UTI, pyelonephritis, calculi, ureteral calculi, obstruction, malignancy, dehydration, electrolyte abnormalities, ovarian torsion, ovarian cyst, ectopic . Patient medicated with morphine, Zofran. She is given IV fluids. CBC was obtained to assess white blood cell count, hemoglobin, platelets. CMP to assess liver function, renal function, electrolytes, glucose. Lipase to assess for pancreatitis. Urinalysis to assess for UTI or occult blood. CBC, CMP, lipase all within normal limits. Urinalysis does not show any evidence of infection. CT of the abdomen/pelvis with IV contrast retained which is no acute process. Case with the patient could have passed a stone as she has had in the past. She was given morphine and Zofran while she was here and I gave her a dose of oxycodone prior to discharge and she has Purdys at home for pain. Follow-up with urology and pain management. Impression: 1. Right flank pain Lab Data Attestation: I reviewed the patient's lab results. Labs: Laboratory Results - last 24 hr 11/29/23 11/29/23 20:40 21:25 WBC 6.1 RBC 4.97 Hgb 13.6 Hct 42.7 MCV 85.9 MCH 27.4 MCHC 31.9 L RDW Std Deviation 41.1 RDW Coeff of Leno 13.2 Plt Count 166 MPV 10.5 Immature Gran % (Auto) 0.500 Neut % (Auto) 85.8 H Lymph % (Auto) 9.4 L [place] % (Auto) 3.9 Eos % (Auto) 0.2 Baso % (Auto) 0.2 Absolute Neuts (auto) 5.2 Absolute Lymphs (auto) 0.57 L Nucleated RBC % 0 Differential Comment SEE COMMENT Platelet Estimate ADEQUATE RBC Morphology NORM C+C Sodium 139 Potassium 4.0 Chloride 108 H Carbon Dioxide 26.0 Anion Gap 5 BUN 13 Creatinine 0.94 Estim Creat Clear Calc 62.55 Est GFR (MDRD) Af Amer 74 Est GFR (MDRD) Non-Af 61 BUN/Creatinine Ratio 13.9 Glucose 122 H Calcium 8.5 Total Bilirubin 0.70 AST 23 ALT 23 Alkaline Phosphatase 77 Total Protein 6.7 Albumin 3.4 Globulin 3.3 Albumin/Globulin Ratio 1.0 Lipase 29 Urine Color Yellow Urine Clarity Clear Urine pH 8.0 Ur Specific [place] 1.015 Urine Protein 15 H Urine Glucose (UA) Normal Urine Ketones 5 H Urine Occult Blood 50 H Urine Nitrite Negative Urine Bilirubin Negative Urine Urobilinogen 1 H Ur Leukocyte Esterase 500 H Urine RBC 5-10 SEEN Urine WBC 5-10 SEEN Ur Squamous Epith Cells 0-5 SEEN Urine Bacteria 0 SEEN Urine Mucus 0 SEEN Radiography Diagnostic Testing: Clinical Impression(s) from Imaging Studies Abdomen/Pelvis CT 11/29/23 21:46 IMPRESSION: Bilateral nephrolithiasis. No evidence for hydronephrosis or ureteral calculus Diverticular changes of the descending and sigmoid colon without evidence for acute diverticulitis Multiple hepatic cysts Electronically Signed: Ken Garcia MD at 22:29 EDT , Discharge Plan Triage Chief Complaint: Abd Pain ED Provider: Jonathan Alfaro Dx/Rx/DC Orders Instructions: ED Abdominal Pain Unkn Cause Fem Prescriptions: No Action diltiazem HCl 240 mg capsule,ext.rel 24h degradable 240 mg PO DAILY pravastatin 80 mg tablet 80 mg PO DAILY Patient Comments: TAKE 1 TABLET BY MOUTH EVERY DAY sertraline 50 mg tablet 75 mg PO DAILY Patient Comments: TAKE 1 TABLET BY MOUTH EVERY DAY methenamine hippurate 1 gram tablet 1 g PO BID Patient Comments: TAKE 1 TABLET BY MOUTH TWICE A DAY TAKE WITH VITAMIN C 1000MG FOR UTI PREVENTION trazodone 50 mg tablet 50 mg PO QHS Patient Comments: TAKE 1 TABLET BY MOUTH EVERYDAY AT BEDTIME ascorbic acid (vitamin C) 1,000 mg tablet 1 g PO BID warfarin 2 mg tablet 3 mg PO DAILY Hold Instructions: Resume on 05/11/23. Patient Comments: MON, WED, FRI 2 mg all other days pregabalin 75 mg capsule 75 mg PO DAILY nortriptyline 25 mg capsule 25 mg PO DAILY anastrozole 1 mg tablet 1 mg PO DAILY Qty: 90 3RF Patient Comments: MUST TAKE FOR 5 YEARS multivitamin 1 EACH tablet 1 each PO DAILY magnesium 250 MG tablet 500 mg PO DAILY calcium 500 mg tablet 1,000 mg PO DAILY hydrocodone-acetaminophen 5-325 mg tablet 1 tab PO Q12H docusate sodium [Colace] 100 mg capsule 100 mg PO BID Qty: 20 0RF cholecalciferol (vitamin D3) [Vitamin D3] 125 mcg (5,000 unit) tablet 125 mcg PO DAILY warfarin 1 mg tablet 1 mg PO .COMPLEX Rx Instructions: 1 mg orally TUES, THUR, SAT, SUN; warfarin 3 mg tablet 3 mg PO .COMPLEX Rx Instructions: 3 mg orally MON, WED, FRI; Primary Care Provider: Meliton Lindsey Referrals: Meliton Lindsey MD [Primary Care Provider] - Disposition Disposition: Home, Self Care
[2023-11-29 22:10] VITALS: BP 135/80; PULSE 99; RESP 16; O2SAT 100
[2023-11-29] MEDS: Morphine 4 MG/ML Syringe IV (22:31)
[2023-11-29] MEDS: Ondansetron 4 MG/2 ML Vial IV (22:31)
[2023-11-29 23:00] VITALS: BP 140/75; PULSE 88; RESP 16; TEMP 36.9; O2SAT 100
== END 2023-11-29 23:02 | disposition home or self-care (01) ==
PROVIDERS: Emergency Provider Student in an Organized Health Care Education/Training Program; PCP Family Medicine; Visit Provider Student in an Organized Health Care Education/Training Program
DX: R10.31 Right lower quadrant pain (principal); F41.9 Anxiety disorder, unspecified; F32.A Depression, unspecified; Z79.899 Other long term (current) drug therapy; Z79.01 Long term (current) use of anticoagulants
CPT/HCPCS: 74177; 80053; 81001; 83690; 85025; 96374; 96375; 99283; Q9967; A4216; J2405

== ENCOUNTER 2023-12-09 09:50 | Day surgery (SDC) | payer MEDICARE, OTHER, SELFPAY ==
[2020-09-11 14:08] VITALS: BMI 31.0
[2023-12-09] VITALS (7 sets, daily range): BP systolic 127–143; BP diastolic 72–88; PULSE 64–84; RESP 16–18; TEMP 36.3–36.6; O2SAT 92–99; BMI 38.4
--- NOTE | 2023-12-09 10:00 | RAD_ITS ---
STUDY: X-RAY - ABDOMEN/PELVIS REASON FOR EXAM: Female, 78 years old. Kidney stone TECHNIQUE: Single AP view of the abdomen / pelvis. COMPARISON: Comparison is made with prior study November 07, 2023. FINDINGS: Elevation of the right hemidiaphragm. There is a moderate amount of colonic fecal material. There is a 11.8 mm calculus in the upper pole calyx of the right kidney. This is unchanged. Tiny calculus is seen in the lower pole calyx of the left kidney. Normal soft tissue structures. There are diffuse degenerative changes of the visualized lumbar spine. Status post bilateral hip replacement. RAD/Abdomen Single View IMPRESSION: Stable 11.8 mm calculus in the upper pole calyx of the right kidney as well as a tiny calculus in the lower pole calyx of the left Electronically Signed: Andrés Muse MD at 10:27 EDT ,
[2023-12-09 10:17] LABS: INR Fingerstick 1.3; Prothrombin Time Fingerstick 14.2 SEC (11.7-14.9)
[2023-12-09] MEDS: Lactated Ringers 1,000 ML 15 ML IV (11:04)
--- NOTE | 2023-12-09 11:48 | DCINST_ITS ---
Discharge Instructions Diet Discharge Diet: No restrictions Activity Discharge Activity: Return to Normal Activity and May Not Drive (while taking narcotic pain medications.) Dressing / Incision Call your doctor if you observe: Fever of 101 or Higher Follow Up Care Please Follow Up With: Hima Condon MD When: Call [phone] for an appointment Test Results: Test results from this visit will be discussed in further detail at your follow- up appointment, if applicable. Discharge Plan Admission Attending Provider: Hima Condon Primary Care Provider: Meliton Lindsey Discharge Orders/Prescriptions Prescriptions: No Action diltiazem HCl 240 mg capsule,ext.rel 24h degradable 240 mg PO DAILY pravastatin 80 mg tablet 80 mg PO DAILY Patient Comments: TAKE 1 TABLET BY MOUTH EVERY DAY sertraline 50 mg tablet 75 mg PO DAILY Patient Comments: TAKE 1 TABLET BY MOUTH EVERY DAY methenamine hippurate 1 gram tablet 1 g PO BID Patient Comments: TAKE 1 TABLET BY MOUTH TWICE A DAY TAKE WITH VITAMIN C 1000MG FOR UTI PREVENTION trazodone 50 mg tablet 50 mg PO QHS Patient Comments: TAKE 1 TABLET BY MOUTH EVERYDAY AT BEDTIME ascorbic acid (vitamin C) 1,000 mg tablet 1 g PO BID pregabalin 75 mg capsule 75 mg PO BID nortriptyline 25 mg capsule 25 mg PO DAILY PRN (Reason: sleep) anastrozole 1 mg tablet 1 mg PO DAILY Qty: 90 3RF Patient Comments: MUST TAKE FOR 5 YEARS multivitamin 1 EACH tablet 1 each PO DAILY magnesium 250 MG tablet 500 mg PO DAILY calcium 500 mg tablet 1,000 mg PO DAILY hydrocodone-acetaminophen 5-325 mg tablet 1 tab PO Q12H cholecalciferol (vitamin D3) [Vitamin D3] 125 mcg (5,000 unit) tablet 125 mcg PO DAILY warfarin 1 mg tablet 2 mg PO SUTUTHSA warfarin 3 mg tablet 3 mg PO .COMPLEX Rx Instructions: 3 mg orally MON, WED, FRI; Referrals / Follow Up: Meliton Lindsey MD [Primary Care Provider] - Disposition Disposition (needs filled in before D/C Order can be placed): Home, Self Care
--- NOTE | 2023-12-09 11:48 | PCM.HP.STD ---
HPI - General General Date of Service: 12/09/23 Chief Complaint: Right kidney stone HPI Narrative HOLLI SEVILLA, is a 78 F who presents for right extracorporeal shockwave lithotripsy [facility] Medical History (Updated 12/05/23 @ 10:47 by Tiffanie Lopez) Abnormal mammogram of right breast Afib Anxiety Arthritis Back pain Breast cancer, right Chronic insomnia Coronary artery dilation Cystitis Depression Elevated alkaline phosphatase level ER+ (estrogen receptor positive status) Gastritis High cholesterol History of atrial fibrillation History of edema Hyperlipidemia Hypertension Kidney stone Mood swings Non-smoker Osteopenia Wears glasses Home Medications ascorbic acid (vitamin C) 1,000 mg tablet 1 g PO BID 08/27/20 [History Last Taken 05/03/23] diltiazem HCl 240 mg capsule,extended release 24 hr, controlled 240 mg PO DAILY 08/27/20 [History Last Taken 12/09/23 07:30] methenamine hippurate 1 gram tablet 1 g PO BID 08/27/20 [History Last Taken 05/03/23] pravastatin 80 mg tablet 80 mg PO DAILY 08/27/20 [History Last Taken 05/03/23] sertraline 50 mg tablet 75 mg PO DAILY 08/27/20 [History Last Taken 05/03/23] trazodone 50 mg tablet 50 mg PO QHS 08/27/20 [History Last Taken 05/03/23] magnesium 250 mg tablet 500 mg PO DAILY 09/15/20 [History Last Taken 05/03/23] multivitamin 1 each PO DAILY 09/15/20 [History Last Taken 05/03/23] nortriptyline 25 mg capsule 25 mg PO DAILY PRN sleep 08/30/22 [History Last Taken 04/30/23] pregabalin 75 mg capsule 75 mg PO BID 08/30/22 [History Last Taken 12/09/23] calcium 500 mg tablet 1,000 mg PO DAILY 04/21/23 [History Last Taken 05/03/23] hydrocodone-acetaminophen 5-325mg 5mg-325mg 1 tab PO Q12H back and leg pain 05/04/23 [History Last Taken 05/03/23] anastrozole 1 mg tablet 1 mg PO DAILY BREAST CANCER #90 tabs 09/05/23 [Rx Last Taken 12/09/23] cholecalciferol (vitamin D3) 125 mcg (5,000 unit) tablet (Vitamin D3) 125 mcg PO DAILY 11/29/23 [History Last Taken Unknown] warfarin 1 mg tablet 2 mg PO SUTUTHSA 11/29/23 [History Last Taken 12/05/23] warfarin 3 mg tablet 3 mg PO .COMPLEX 11/29/23 [History Last Taken 12/05/23] Allergy/AdvReac Type Severity Reaction Status Date / Time ciprofloxacin Allergy Unknown unknown Verified 12/09/23 10:37 Sulfa (Sulfonamide Allergy Unknown unknown Verified 12/09/23 10:37 Antibiotics) Family History Mother Hypertension Afib Sister Afib Hypertension Surgical History (Updated 12/05/23 @ 10:47 by Tiffanie Lopez) History of ankle surgery History of hip replacement, total History of lumpectomy of right breast History of right breast biopsy (~09/02/20) Hx of breast biopsy Hx of cataract extraction Hx of cholecystectomy Hx of right breast biopsy Hx of surgical procedure Hx of surgical procedure Social History Smoking Status: Never smoker second hand exposure: No alcohol intake: current alcohol intake frequency: a few times a month Alcohol type: wine substance use type: does not use diet: Weight Watchers caffeine: Yes what type of physical activity do you participate in: swimming and aerobics frequency: other Vital Signs Vital Signs Vital Signs: 12/09/23 10:45 12/09/23 10:51 Temperature 98 F Temperature Source Temporal Pulse Rate 76 Respiratory Rate 16 Respiratory Pattern Normal Blood Pressure 138/81 H Blood Pressure Mean 100 Blood Pressure Source Monitor Blood Pressure Position Semi-Fowlers Blood Pressure Location Left Arm Pulse Ox 98 Oxygen Delivery Method Room Air Weight Weight: 107.9 kg Body Mass Index (BMI) 38.4 Results Lab / Micro Data Labs: Laboratory Results - last 24 hr 12/09/23 10:16: POC PT 14.2, INR 1.3 Imaging Radiology Impression KUB X-Ray 12/09/23 10:00 IMPRESSION: Stable 11.8 mm calculus in the upper pole calyx of the right kidney as well as a tiny calculus in the lower pole calyx of the left Electronically Signed: Andrés Muse MD at 10:27 EDT ,
[2023-12-09] MEDS: Cefazolin 2 GM in 0.9% Normal Saline (100mL Bag) 100 ML IV (12:10)
--- NOTE | 2023-12-09 13:02 | OP.PCM_ITS ---
Report of Operation Date of Procedure: 12/09/23 Pre-Operative Diagnosis: Right kidney stone Post-Operative Diagnosis: Same Surgery/Procedure Performed:: Right extracorporeal lithotripsy Description of Surgical Findings:: Patient presents to the hospital for treatment of a kidney stone with shockwave lithotripsy. In the preoperative area and x-ray was done to confirm the location of the stone. The x-ray was reviewed and the stone location was reviewed. In the preoperative setting I spoke with the patient regarding the treatment of the stone how the treatment would be conducted and the expectations after surgery. The patient understands there is a risk of bleeding and infection. Also discussed the very rare risk of hematoma or damage to the kidney. We also discussed the risk that the shockwave machine will fail to break the stone adequately and that the patient may need other surgical procedures. I also discussed the possibility that the patient may need a stent after the procedure. After reviewing the procedure with the patient, the patient is signed the consent form all the patient's questions were addressed and was taken back to the operating room for treatment of a kidney stone. Patient was taken back to the operating room, the patient was identified by the nursing staff, I identified the side of the treatment and the patient side of treatment had been marked by my initials. The patient underwent general ane sthetic and was placed supine on the lithotripter table. I then used fluoroscopy to identify the stone on the Right side. I then positioned the patient under the lithotripter and I used triangulation technique to identify the location of the stone and then I made sure that the stone was engaged in the F2 focal point of F2 Donier lithoprior machine. Once the patient was positioned appropriately and the stone was identified and placed in the F2 focal point of the lithotripter machine I then proceeded with shockwave lithotripsy. In the beginning the shockwave was delivered at a rate of 90 shocks per minute, anesthesia monitored the EKG for any ectopy. The power was slowly increased to 5 kV and subsequently at the 7 kV. I then proceeded with the treatment with shock wave therapy and around during the treatment to make sure the stone stayed in the F2 focal point during the entire treatment and after 3000 shockwaves were delivered to the stone under fluoroscopic guidance the treatment was completed. The patient was given instructions to call the office to make an a follow-up appointment with an xray to evaluate the success of the treatment, pateint understands that its possible the stones may need another procedure.At this point the patient's anesthetic was reversed patient was extubated and taken back to the PACU in stable condition. Surgeon: Hima Condon Type of Anesthesia: General Drains: none Admit VTE Documentation VTE Present on Admission: No VTE Mechan Device Prophylaxis: SCD's VTE Pharm Prophylaxis ordered?: No
[2023-12-09] MEDS: Ketorolac 15 MG/ML Vial IV (13:30)
== END 2023-12-09 14:27 | disposition home or self-care (01) ==
LOC: SDC 09:56 → AC 09:56
PROVIDERS: PCP Family Medicine; Referring Provider Urology; Visit Provider Urology
PROC: (CPT 50590; principal; 2023-12-09 12:05)
DX: N20.0 Calculus of kidney (principal); I10 Essential (primary) hypertension; E78.00 Pure hypercholesterolemia, unspecified; Z79.01 Long term (current) use of anticoagulants; Z79.811 Long term (current) use of aromatase inhibitors; Z79.899 Other long term (current) drug therapy
CPT/HCPCS: 50590; 36416; 74018; 85610; J7120; J2405

== ENCOUNTER 2024-01-05 15:31 | Outpatient (CLI) | payer MEDICARE, OTHER, SELFPAY ==
[2020-09-11 14:08] VITALS: BMI 31.0
[2024-01-05 18:47] LABS: International Normalized Ratio 2.9; Prothrombin Time (Protime)PT. 30.3 SECONDS (11.7-14.9)
== END 2024-01-05 23:59 | disposition home or self-care (01) ==
LOC: MFPLAB 15:32
PROVIDERS: PCP Family Medicine; Visit Provider Family Medicine
DX: N20.0 Calculus of kidney (principal); Z79.01 Long term (current) use of anticoagulants
CPT/HCPCS: 36415; 74018; 80048; 85610

== ENCOUNTER → 2024-01-05 | Outpatient (CLI) | payer MEDICARE, OTHER, SELFPAY ==
[2020-09-11 14:08] VITALS: BMI 31.0
--- NOTE | 2024-01-05 11:05 | RAD_ITS ---
EXAM: XR ABDOMEN, 1 VIEW CLINICAL INDICATION: Calculus of kidney TECHNIQUE: Frontal supine view of the abdomen/pelvis. COMPARISON: 12/09/2023 FINDINGS: LOWER THORAX: No acute pathology. INTRAPERITONEAL SPACE: Calcification in the right midabdomen is unchanged. GASTROINTESTINAL TRACT: Unremarkable. Non-obstructive. No bowel or stomach distention. ORGANS: Unremarkable as visualized. No organomegaly. No abnormal calcifications. BONES/JOINTS: Bilateral hip replacements. SOFT TISSUES: No acute pathology. RAD/Abdomen Single View IMPRESSION: No change in the abdomen and the reference exam. Electronically Signed: Nick Sharpe MD at 0:04 EDT ,
[2024-01-05 12:03] LABS: Anion Gap 2 (5-15); BUN 18 mg/dL (7-18); BUN/Creat Ratio 18.5 RATIO (10-20); Calcium,Total 9.3 mg/dL (8.5-10.1); Chloride 108 mmol/L (98-107); Creatinine, Serum 0.97 mg/dL (0.55-1.02); EST Glomerular Filtration Rate 59 mL/min (>60); Est Glom Filt Rate - Afr Amer 71 mL/min (>60); Glucose 111 mg/dL (74-106); Potassium 4.3 mmol/L (3.5-5.1); Sodium Level 139 mmol/L (136-145)
== END | disposition home or self-care (01) ==
LOC: RAD 10:59
PROVIDERS: PCP Family Medicine; Referring Provider Urology; Visit Provider Urology
DX: N20.0 Calculus of kidney (principal)
CPT/HCPCS: 36415; 74018; 80048

== ENCOUNTER → 2024-01-24 | Outpatient (CLI) | payer MEDICARE, OTHER, SELFPAY ==
[2020-09-11 14:08] VITALS: BMI 31.0
[2024-01-24 12:33] LABS: International Normalized Ratio 1.2; Prothrombin Time (Protime)PT. 14.9 SECONDS (11.7-14.9)
== END | disposition home or self-care (01) ==
LOC: MFPLAB 09:40
PROVIDERS: PCP Family Medicine; Visit Provider Anesthesiology Pain Medicine
DX: Z01.818 Encounter for other preprocedural examination (principal); Z79.01 Long term (current) use of anticoagulants
CPT/HCPCS: 36415; 85610

== ENCOUNTER → 2024-02-06 | Outpatient (CLI) | payer MEDICARE, OTHER, SELFPAY ==
[2020-09-11 14:08] VITALS: BMI 31.0
[2024-02-06 12:33] LABS: International Normalized Ratio 1.7; Prothrombin Time (Protime)PT. 19.8 SECONDS (11.7-14.9)
== END | disposition home or self-care (01) ==
LOC: MFPLAB 09:38
PROVIDERS: PCP Family Medicine; Visit Provider Family Medicine
DX: I48.91 Unspecified atrial fibrillation (principal)
CPT/HCPCS: 36415; 85610

== ENCOUNTER → 2024-04-09 | Outpatient (CLI) | payer MEDICARE, OTHER, SELFPAY ==
[2020-09-11 14:08] VITALS: BMI 31.0
[2024-04-09 10:34] LABS: International Normalized Ratio 1.6; Prothrombin Time (Protime)PT. 19.2 SECONDS (11.7-14.9)
== END | disposition home or self-care (01) ==
LOC: MFPLAB 09:14
PROVIDERS: PCP Family Medicine; Visit Provider Registered Nurse
DX: I48.91 Unspecified atrial fibrillation (principal)
CPT/HCPCS: 36415; 85610

== ENCOUNTER 2024-04-16 11:27 | Outpatient (RCR) | payer MEDICARE, OTHER, SELFPAY ==
[2020-09-11 14:08] VITALS: BMI 31.0
[2024-04-16 15:12] LABS: International Normalized Ratio 1.5; Prothrombin Time (Protime)PT. 18.3 SECONDS (11.7-14.9)
== END 2024-04-16 18:00 | disposition home or self-care (01) ==
LOC: MTLAB 11:27
PROVIDERS: PCP Family Medicine; Referring Provider Family Medicine; Visit Provider Family Medicine
DX: I48.91 Unspecified atrial fibrillation (principal)
CPT/HCPCS: 36415; 85610

== ENCOUNTER → 2024-04-30 | Outpatient (CLI) | payer MEDICARE, OTHER, SELFPAY ==
[2020-09-11 14:08] VITALS: BMI 31.0
[2024-04-30 17:56] LABS: International Normalized Ratio 1.7; Prothrombin Time (Protime)PT. 20.1 SECONDS (11.7-14.9)
== END | disposition home or self-care (01) ==
LOC: MFPLAB 13:41
PROVIDERS: PCP Family Medicine; Visit Provider Family Medicine
DX: I48.91 Unspecified atrial fibrillation (principal)
CPT/HCPCS: 36415; 85610

== ENCOUNTER → 2024-05-15 | Outpatient (CLI) | payer MEDICARE, OTHER, SELFPAY ==
[2020-09-11 14:08] VITALS: BMI 31.0
[2024-05-15 13:37] LABS: International Normalized Ratio 1.1; Prothrombin Time (Protime)PT. 14.5 SECONDS (11.7-14.9)
== END | disposition home or self-care (01) ==
PROVIDERS: PCP Family Medicine; Visit Provider Family Medicine
DX: I48.91 Unspecified atrial fibrillation (principal)
CPT/HCPCS: 36415; 85610

== ENCOUNTER 2024-05-30 09:06 | Outpatient (RCR) | payer MEDICARE, OTHER, SELFPAY ==
[2020-09-11 14:08] VITALS: BMI 31.0
[2024-05-07 18:13] LABS: International Normalized Ratio 1.8; Prothrombin Time (Protime)PT. 20.7 SECONDS (11.7-14.9)
[2024-05-30 10:11] LABS: International Normalized Ratio 2.2; Prothrombin Time (Protime)PT. 23.9 SECONDS (11.7-14.9)
== END 2024-05-30 18:00 | disposition home or self-care (01) ==
LOC: MTLAB 09:06
PROVIDERS: PCP Family Medicine; Referring Provider Family Medicine; Visit Provider Family Medicine
DX: I48.91 Unspecified atrial fibrillation (principal)
CPT/HCPCS: 36415; 85610

== ENCOUNTER 2024-06-23 19:37 | Emergency (ER) | payer MEDICARE, OTHER, SELFPAY ==
[2020-09-11 14:08] VITALS: BMI 31.0
[2024-06-23 19:38] VITALS: BP 168/94; PULSE 87; RESP 16; TEMP 36.2; O2SAT 99; BMI 38.3
--- NOTE | 2024-06-23 20:15 | ED.VIS.BACK ---
HPI History of Present Illness Chief Complaint: Back Informant: patient and friend Narrative Narrative: Patient here with her friend for evaluation worsening right-sided back pain rating to her hip. Denies trauma. History of back pain in the past. She is followed by pain management Dr. Buchanan. She has had ablations of her lower back most recent in December on her right side. She states 3 weeks ago had pain in her coccyx region, had injections there which has helped that region. Reports little over a week ago pain started on her right side again rating to her hip. She followed up with her pain doctor earlier this week on Tuesday was placed on Percocet every 8 hours along with Robaxin every 8 hours. She was doing okay up till yesterday where her medicines are not helping. She is taking it every 6 hours. She was told she is unable to take any more steroids. She is also on Lyrica 75 mg twice a day. She denies any urine retention or stool incontinence no saddle anesthesia. She is able to ambulate. Prior similar symptoms: Yes and With Prior Back Pain [facility] Medical History Impacted cerumen of both ears Kidney stone Wears glasses Anxiety High cholesterol Non-smoker History of edema History of atrial fibrillation Elevated alkaline phosphatase level Back pain Mood swings ER+ (estrogen receptor positive status) Osteopenia Breast cancer, right Abnormal mammogram of right breast Arthritis Gastritis Hyperlipidemia Afib Chronic insomnia Cystitis Coronary artery dilation Depression Hypertension Home Medications ?Medication ?Instructions ?Recorded ?Last Taken ?Type ascorbic acid (vitamin C) 1,000 mg 1 g PO BID 08/27/20 05/03/23 History tablet diltiazem HCl 240 mg 240 mg PO DAILY 08/27/20 12/09/23 07:30 History capsule,extended release 24 hr, controlled methenamine hippurate 1 gram tablet 1 g PO BID 08/27/20 05/03/23 History pravastatin 80 mg tablet 80 mg PO DAILY 08/27/20 05/03/23 History sertraline 50 mg tablet 75 mg PO DAILY 08/27/20 05/03/23 History trazodone 50 mg tablet 50 mg PO QHS 08/27/20 05/03/23 History magnesium 250 mg tablet 500 mg PO DAILY 09/15/20 05/03/23 History multivitamin 1 each PO DAILY 09/15/20 05/03/23 History nortriptyline 25 mg capsule 25 mg PO DAILY PRN sleep 08/30/22 04/30/23 History pregabalin 75 mg capsule 75 mg PO BID 08/30/22 12/09/23 History calcium 500 mg tablet 1,000 mg PO DAILY 04/21/23 05/03/23 History hydrocodone-acetaminophen 5-325mg 1 tab PO Q12H back and leg pain 05/04/23 05/03/23 History 5mg-325mg anastrozole 1 mg tablet 1 mg PO DAILY BREAST CANCER #90 09/05/23 12/09/23 Rx tabs cholecalciferol (vitamin D3) 125 125 mcg PO DAILY 11/29/23 Unknown History mcg (5,000 unit) tablet (Vitamin D3) warfarin 1 mg tablet 2 mg PO SUTUTHSA 11/29/23 12/05/23 History warfarin 3 mg tablet 3 mg PO .COMPLEX 11/29/23 12/05/23 History azithromycin 250 mg tablet See Rx Instructions PO .COMPLEX #6 06/05/24 Unknown Rx tabs Allergy/AdvReac Type Severity Reaction Status Date / Time ciprofloxacin Allergy Unknown unknown Verified 06/23/24 19:37 Sulfa (Sulfonamide Allergy Unknown unknown Verified 06/23/24 19:37 Antibiotics) Family History Mother Hypertension Afib Sister Afib Hypertension Surgical History Hx of surgical procedure Hx of surgical procedure History of lumpectomy of right breast History of ankle surgery History of right breast biopsy (~09/02/20) Hx of breast biopsy History of hip replacement, total Hx of cataract extraction Hx of cholecystectomy Hx of right breast biopsy Social History Smoking Status: Never smoker second hand exposure: No alcohol intake: current alcohol intake frequency: a few times a month Alcohol type: wine substance use type: does not use diet: Weight Watchers caffeine: Yes what type of physical activity do you participate in: swimming and aerobics frequency: other ROS ROS ED Constitutional Constitutional ED: Denies chills, fever(s) or sweats Eyes Eyes: Denies change in vision ENT ENT ED: Denies dysphagia or sore throat Cardiovascular Cardiovascular: Denies chest pain, leg edema, palpitations or racing heartbeat Respiratory/Chest Respiratory/Chest: Denies cough, dyspnea or dyspnea on exertion Gastrointestinal Gastrointestinal: Denies abdominal pain, diarrhea, nausea or vomiting Genitourinary Genitourinary ED: Denies dysuria, hematuria or urinary frequency Musculoskeletal Musculoskeletal: Reports back pain; Denies extremity pain or neck pain Integumentary Denies rash or wounds Neurologic Neurologic: Denies headache(s), paresthesias or weakness EXAM Physical Exam Const Vital Signs: 06/23/24 19:38 06/23/24 21:09 Temperature 97.1 F L 98.4 F Temperature Source Oral Pulse Rate 87 64 Respiratory Rate 16 18 Blood Pressure 168/94 H 136/64 H Blood Pressure Mean 118 88 Pulse Ox 99 99 Oxygen Delivery Method Room Air Positive well nourished and well developed General Appearance ED: well developed and NAD HEENT Reports moist mucous membranes normocephalic and atraumatic Eyes EOMs intact bilaterally and conjunctivae normal General Eye ED: Yes normal appearance of both eyes Neck no lymphadenopathy and supple General: Negative for tenderness Chest Wall Chest: Negative for tenderness Resp normal respiratory effort and normal air movement Effort and Inspection: symmetric chest movement; Negative for respiratory distress Cardio regular rate, regular rhythm and no murmurs Peripheral Pulses: pulses 2+ throughout GI normal to inspection, nondistended, normoactive bowel sounds and non-tender Palpation: Negative for guarding or rebound tenderness present Back/Spine no CVA tenderness and no thoracic nor lumbar tenderness Back/Spine Narrative: Tenderness right paralumbar, straight leg test negative. Extremity normal to inspection General Extremety ED: Negative for edema or tenderness General Extremity: Negative for edema Neuro oriented x3 and no sensory deficits noted Sensorium / Orientation: awake and alert Skin no rashes or lesions noted and no wounds MDM MDM MDM Narrative Medical decision making narrative: Interventions / MDM: Differential diagnosis: Sciatica, lumbar radiculopathy Diagnosis considered but do not suspect: No cauda equina symptoms My EKG interpretation: N/A Imaging independently reviewed and interpreted by myself: N/A External documents reviewed: N/A Test considered but not ordered:N/A ED course: Patient worsening sciatica pain with lumbar radiculopathy to her right hip. No cauda equina symptoms. She is with pain management. She reported no further steroids at this point by her pain doctors. With radicular symptoms discussed with patient plan to increase her Lyrica with this evening's dose 150 mg. Should be given a pain shot. Show discussed with her pain management doctor for adjustments of her medications. She understands and agrees with plan. All questions were answered. Re-evaluation: stable Disposition discussed with patient/family/significant other: Patient Case discussed with consulting clinician: N/A This note was generated with [employer] dictation software. It may contain incorrect words, spelling, and punctuation that were not noted in checking the note before signing. Discharge Plan Triage Chief Complaint: Back ED Provider: Tj Howard Dx/Rx/DC Orders Clinical Impression: Back pain with right-sided sciatica, Lumbar radicular pain Instructions: ED Sciatica Prescriptions: No Action diltiazem HCl 240 mg capsule,ext.rel 24h degradable 240 mg PO DAILY pravastatin 80 mg tablet 80 mg PO DAILY Patient Comments: TAKE 1 TABLET BY MOUTH EVERY DAY sertraline 50 mg tablet 75 mg PO DAILY Patient Comments: TAKE 1 TABLET BY MOUTH EVERY DAY methenamine hippurate 1 gram tablet 1 g PO BID Patient Comments: TAKE 1 TABLET BY MOUTH TWICE A DAY TAKE WITH VITAMIN C 1000MG FOR UTI PREVENTION trazodone 50 mg tablet 50 mg PO QHS Patient Comments: TAKE 1 TABLET BY MOUTH EVERYDAY AT BEDTIME ascorbic acid (vitamin C) 1,000 mg tablet 1 g PO BID pregabalin 75 mg capsule 75 mg PO BID nortriptyline 25 mg capsule 25 mg PO DAILY PRN (Reason: sleep) anastrozole 1 mg tablet 1 mg PO DAILY Qty: 90 3RF Patient Comments: MUST TAKE FOR 5 YEARS azithromycin 250 mg tablet See Rx Instructions PO .COMPLEX Qty: 6 0RF Rx Instructions: For 250 mg dose pack: take 500 mg today (day 1), then 250 mg for 4 days (days 2-5) PO multivitamin 1 EACH tablet 1 each PO DAILY magnesium 250 MG tablet 500 mg PO DAILY calcium 500 mg tablet 1,000 mg PO DAILY hydrocodone-acetaminophen 5-325 mg tablet 1 tab PO Q12H cholecalciferol (vitamin D3) [Vitamin D3] 125 mcg (5,000 unit) tablet 125 mcg PO DAILY warfarin 1 mg tablet 2 mg PO SUTUTHSA warfarin 3 mg tablet 3 mg PO .COMPLEX Rx Instructions: 3 mg orally MON, WED, FRI; Primary Care Provider: Meliton Lindsey Referrals: Man Buchanan DO [Non-Staff] - 3-5 Days Sunday Lares MD [Med Staff - Master Control Technician] - Activity Restrictions/Additional Instructions: Discussed with Dr. Buchanan for changes of your Lyrica and further adjustments of any other medications. Print Language: Zimbabwean Disposition Disposition: Home, Self Care Discharge Date/Time: 06/23/24 21:10
[2024-06-23] MEDS: Morphine 4 MG/ML Syringe IM (20:25)
[2024-06-23] MEDS: Pregabalin 75 MG Capsule 150 MG PO (20:25)
[2024-06-23 21:09] VITALS: BP 136/64; PULSE 64; RESP 18; TEMP 36.9; O2SAT 99
== END 2024-06-23 21:10 | disposition home or self-care (01) ==
PROVIDERS: Emergency Provider Emergency Medicine; PCP Family Medicine; Visit Provider Emergency Medicine
DX: M54.41 Lumbago with sciatica, right side (principal); I48.91 Unspecified atrial fibrillation; I10 Essential (primary) hypertension; E78.00 Pure hypercholesterolemia, unspecified; F32.A Depression, unspecified; F41.9 Anxiety disorder, unspecified; F51.04 Psychophysiologic insomnia; M19.90 Unspecified osteoarthritis, unspecified site; Z85.3 Personal history of malignant neoplasm of breast; Z88.2 Allergy status to sulfonamides; Z88.1 Allergy status to other antibiotic agents; Z79.01 Long term (current) use of anticoagulants; Z87.19 Personal history of other diseases of the digestive system; Z90.49 Acquired absence of other specified parts of digestive tract; Z79.899 Other long term (current) drug therapy; Z96.649 Presence of unspecified artificial hip joint
CPT/HCPCS: 96372; 99282

== ENCOUNTER 2024-07-16 09:15 | Outpatient (RCR) | payer MEDICARE, OTHER, SELFPAY ==
[2020-09-11 14:08] VITALS: BMI 31.0
[2024-07-16 10:12] LABS: Prothrombin Time (Protime)PT. 13.5 SECONDS (11.7-14.9)
== END 2024-07-16 18:00 | disposition home or self-care (01) ==
LOC: MTLAB 09:15
PROVIDERS: PCP Family Medicine; Referring Provider Family Medicine; Visit Provider Family Medicine
DX: I48.91 Unspecified atrial fibrillation (principal)
CPT/HCPCS: 36415; 85610

== ENCOUNTER → 2024-07-27 | Outpatient (CLI) | payer MEDICARE, OTHER, SELFPAY ==
[2020-09-11 14:08] VITALS: BMI 31.0
[2024-07-27 10:28] LABS: International Normalized Ratio 2.4; Prothrombin Time (Protime)PT. 25.7 SECONDS (11.7-14.9)
[2024-07-27 10:58] LABS: Vitamin D,25 Hydroxy 59.6 ng/mL
[2024-07-27 11:22] LABS: AST(SGOT) 13 U/L (15-37); Alanine Aminotransfer ALT/SGPT 23 U/L (13-56); Albumin, Serum 3.5 g/dL (3.2-5.0); Alkaline Phosphatase 70 U/L (45-117); Anion Gap 2 (5-15); BUN 22 mg/dL (7-18); BUN/Creat Ratio 25.8 RATIO (10-20); Calcium,Total 9.2 mg/dL (8.5-10.1); Chloride 111 mmol/L (98-107); Cholesterol 166 mg/dL (200); Creatinine, Serum 0.85 mg/dL (0.55-1.02); EST Glomerular Filtration Rate 68 mL/min (>60); Est Glom Filt Rate - Afr Amer 83 mL/min (>60); Globulin 3.5 g/dL (2.2-4.2); Glucose 133 mg/dL (74-106); High Density Lipoprotein 65 mg/dL; Potassium 3.9 mmol/L (3.5-5.1); Sodium Level 140 mmol/L (136-145); Triglycerides 114 mg/dL; Very Low Density Lipoprotein 23 mg/dL (5-40)
[2024-08-02 12:07] LABS: Vitamin D 1,25-Dihydroxy 48.1 pg/mL (24.8-81.5)
== END | disposition home or self-care (01) ==
LOC: MFPLAB 08:15
PROVIDERS: PCP Family Medicine; Referring Provider Family Medicine; Visit Provider Family Medicine
DX: I48.91 Unspecified atrial fibrillation (principal); R03.0 Elevated blood-pressure reading, without diagnosis of hypertension
CPT/HCPCS: 36415; 80053; 80061; 82306; 82652; 85610

== ENCOUNTER → 2024-08-19 | Outpatient (CLI) | payer MEDICARE, OTHER, SELFPAY ==
[2020-09-11 14:08] VITALS: BMI 31.0
--- NOTE | 2024-08-19 10:37 | MRI_ITS ---
STUDY: MR Spine Lumbar W/O Contrast 08/19/2024 4:09 PM REASON FOR EXAM: Female, 79 years old. Back pain pain TECHNIQUE: MR Spine Lumbar W/O Contrast Standardized fat and water weighted pulse sequences were obtained. COMPARISON: Plain film . MRI 3.30.22 FINDINGS: T12-L1: Normal endplates. Normal disc height, hydration and morphology. Normal bilateral facet joints. Normal central canal and bilateral lateral recesses. Normal bilateral intervertebral neural foramina. Normal lumbar lordosis. There is no substantial scoliosis. Normal conus medullaris that terminates at the L1. L1-2: Loss of intervertebral disc height. There is endplate spondylosis of the vertebral body. Normal central canal and intervertebral neuroforamina. There is bilateral facet arthropathy. Disc desiccation. Posterior displacement. L2-3: Loss of intervertebral disc height. There is endplate spondylosis of the vertebral body. There is bilateral facet arthropathy. Bilateral neural foraminal stenosis. Compression of exiting nerve roots. Disc desiccation. Discogenic endplate changes. Left paracentral disc herniation. Narrowing of the left lateral recess. No significant spinal stenosis. L3-4: Loss of intervertebral disc height. There is endplate spondylosis of the vertebral body. Normal central canal and intervertebral neuroforamina. There is bilateral facet arthropathy. Posterior disc bulge. L4-5: Loss of intervertebral disc height. There is endplate spondylosis of the vertebral body. There is bilateral facet arthropathy. Right neural foraminal stenosis. Compression of exiting nerve roots. Disc desiccation. Posterior disc bulge. Stable grade 1 anterolisthesis of L4 and L5. L5-S1: Loss of intervertebral disc height. There is endplate spondylosis of the vertebral body. There is bilateral facet arthropathy. Bilateral neural foraminal stenosis. Compression of exiting nerve roots. Disc desiccation. Normal visualized sacral ala. Normal visualized paraspinous soft tissue structures. MRI/Spine Lumbar (Routine) IMPRESSION: Multilevel degenerative changes, as described above. Since the prior study, there is development of bilateral neural foraminal stenosis at L2-3 with left paracentral disc herniation. This is causing narrowing of the left lateral recess. There is also likely a disc extrusion measuring 6 mm on the left at L2-3. Electronically Signed: Vishnu Steiner MD at 16:17 EST ,
== END | disposition home or self-care (01) ==
LOC: MRI 10:00
PROVIDERS: PCP Family Medicine; Referring Provider Student in an Organized Health Care Education/Training Program; Visit Provider Student in an Organized Health Care Education/Training Program
DX: M54.16 Radiculopathy, lumbar region (principal)
CPT/HCPCS: 72148

== ENCOUNTER → 2024-08-28 | Outpatient (CLI) | payer MEDICARE, OTHER, SELFPAY ==
[2020-09-11 14:08] VITALS: BMI 31.0
--- NOTE | 2024-08-28 09:29 | BD_ITS ---
PROCEDURE: DEXA scan. REASON FOR EXAM: F, age 79 y/o . Postmenopausal TECHNIQUE: DEXA scan of both forearms COMPARISON: None. FINDINGS: Right Forearm: g/cm2 (0.458)/T-score (-2.2)/Z-score (0.6) Left Forearm: g/cm2 (0.461)/T-score (-2.2)/Z-score (0.6) BD/Dexa Bone Density/Append Skel IMPRESSION: The patient is considered osteopenia as outlined below according to World [employer] (WHO) criteria with a high fracture risk. Reading Location: [place] [id number]
--- NOTE | 2024-08-28 10:00 | BI_ITS ---
PROCEDURE: SCRN MAMM (CAD)W/JESUS BILAT REASON FOR EXAM: F, Age 79 y/o , Personal history of breast cancer. Prior right lumpectomy. TECHNIQUE: Bilateral screening digital breast tomosynthesis with 2D and 3D images. Computer aided detection. COMPARISON: Prior exam(s) dating back to . Comparison is made with prior examination dated August 24, 2023. FINDINGS: There are scattered areas of fibroglandular density. The patient is status post lumpectomy in the ret roareolar region of the right breast with resultant postoperative deformity. Surgical clips are seen in the right axilla. No suspicious masses, areas of developing architectural distortion, or suspicious calcifications. BI/SCRN MAMM (CAD)W/JESUS BILAT IMPRESSION: BI-RADS 2: BENIGN. RECOMMEND ANNUAL MAMMOGRAPHIC SCREENING. Follow-up code: Routine Follow-up The patient will be notified of the results by letter. Reading Location: [place] [id number]
== END | disposition home or self-care (01) ==
PROVIDERS: PCP Family Medicine; Referring Provider Internal Medicine Medical Oncology; Visit Provider Internal Medicine Medical Oncology
DX: Z12.31 Encounter for screening mammogram for malignant neoplasm of breast (principal); Z78.0 Asymptomatic menopausal state
CPT/HCPCS: 77063; 77067; 77081

== ENCOUNTER → 2024-10-03 | Outpatient (CLI) | payer MEDICARE, OTHER, SELFPAY ==
[2020-09-11 14:08] VITALS: BMI 31.0
[2024-10-03 17:51] LABS: Absolute Lymphocyte Count 2.14 X10^3/uL (0.83-4.51); Absolute Neutrophil Count 6.1 X10^3/uL (2.0-7.7); Basophil# 0.05 X10^3/uL; Basophil% 0.6 % (0-1); Eosinophil# 0.03 X10^3/uL; Eosinophils% 0.3 % (0-5); Hemoglobin 14.3 g/dL (12.0-15.0); Lymphocyte # 2.14 X10^3/ul (0.83-4.51); Lymphocyte % 23.8 % (19-41); Mean Corp Hgb Conc 32.5 g/dL (32-36); Mean Corpuscular Hgb 28.5 pg (27.0-32.0); Mean Corpuscular Volume 87.6 fL (81-99); Mean Platelet Vol. 10.6 fl (6.2-12.0); Monocyte# 0.65 X10^3/uL; Monocyte% 7.2 % (0-10); NRBC Flagged by Analyzer 0 % (0-5); Neutrophil # 6.07 X10^3/uL (2.7-7.7); Neutrophil % 67.3 % (47-70); Platelet Count 230 K/mm3 (150-450); RBC Distribution Width CV 13.4 % (11.6-14.6); RBC Distribution Width SD 43.1 fl (35.1-43.9); Red Blood Count 5.02 M/mm3 (4.2-5.4)
== END | disposition home or self-care (01) ==
LOC: MFPLAB 15:07
PROVIDERS: PCP Family Medicine; Referring Provider Family Medicine; Visit Provider Family Medicine
DX: N93.9 Abnormal uterine and vaginal bleeding, unspecified (principal)
CPT/HCPCS: 36415; 85025

== ENCOUNTER 2024-11-21 14:31 | Inpatient (IN) | payer MEDICARE, OTHER, SELFPAY ==
[2020-09-11 14:08] VITALS: BMI 31.0
--- NOTE | 2024-11-08 11:51 | EKG12_ITS ---
Test Reason : PRE OP Blood Pressure : */* mmHG Vent. Rate : 86 BPM Atrial Rate : 468 BPM P-R Int : * ms QRS Dur : 78 ms QT Int : 322 ms P-R-T Axes : * 57 61 degrees QTcB Int : 385 ms Atrial fibrillation Abnormal ECG Confirmed by KAYLYN SEBASTIAN, JUSTINE ([id number]), marketing editor MISSAEL LEON ([id number]) on 11/09/2024 7:00:19 AM Referred By: Oswald You Confirmed By: JUSTINE PATIÑO MD
[2024-11-08 13:09] LABS: Absolute Lymphocyte Count 1.67 X10^3/uL (0.83-4.51); Absolute Neutrophil Count 5.2 X10^3/uL (2.0-7.7); Basophil# 0.04 X10^3/uL; Basophil% 0.5 % (0-1); Eosinophil# 0.02 X10^3/uL; Eosinophils% 0.3 % (0-5); Hematocrit 42.8 % (37-47); Hemoglobin 13.8 g/dL (12.0-15.0); Lymphocyte # 1.67 X10^3/ul (0.83-4.51); Lymphocyte % 22.5 % (19-41); Mean Corp Hgb Conc 32.2 g/dL (32-36); Mean Corpuscular Hgb 28.5 pg (27.0-32.0); Mean Corpuscular Volume 88.4 fL (81-99); Mean Platelet Vol. 10.7 fl (6.2-12.0); Monocyte# 0.51 X10^3/uL; Monocyte% 6.9 % (0-10); NRBC Flagged by Analyzer 0 % (0-5); Neutrophil # 5.15 X10^3/uL (2.7-7.7); Neutrophil % 69.4 % (47-70); Platelet Count 229 K/mm3 (150-450); RBC Distribution Width CV 13.1 % (11.6-14.6); RBC Distribution Width SD 42.7 fl (35.1-43.9); Red Blood Count 4.84 M/mm3 (4.2-5.4); White Blood Count 7.4 K/mm3 (4.4-11.0)
[2024-11-08 14:46] LABS: Anion Gap 13 (5-15); BUN 23 mg/dL (4-19); BUN/Creat Ratio 28.2 RATIO (10-20); Calcium,Total 9.5 mg/dL (7.6-11.0); Carbon Dioxide 24.6 mmol/L (21.0-32.0); Chloride 104 mmol/L (98-108); EST Glomerular Filtration Rate 75 (>60); Glucose 108 mg/dL (70-99); HIV Nonreactive (Nonreactive); Hepatitis B Surface Antibody Nonreactive; Hepatitis C Antibody Nonreactive (Nonreactive); Potassium 4.2 mmol/L (3.3-5.1); Sodium Level 141 mmol/L (133-145)
--- NOTE | 2024-11-08 16:10 | PAT.ANE_ITS ---
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 When Was Last Pacemaker Check QUESTION #4 FULL TEXT: You/Your Family Experience fever (hyperthermia) with Anesthesia Last Oral Intake Last Oral intake: Last Oral Intake NPO since Meds taken in AM with sips of water? Meds patient instructed to take am of surgery PONV PONV - hunting guide: PONV - hunting guide Female Yes 11/07/24 09:49 HX of Motion Sickness No 11/07/24 09:49 HX of N/V After Surgery No 11/07/24 09:49 Non-Smoker Yes 11/07/24 09:49 Duration of Surgery greater Yes 11/07/24 09:49 than 60 minutes Number of Risk Factors 3 11/07/24 09:49 PONV Score Moderate Risk 11/07/24 09:49 Height & Weight Height & Weight: Anesthesia: Height & Weight Height 5 ft 5 in 09/13/24 13:55 Respiratory Assessment Respiratory Assessment - hunting guide: Respiratory Tract Infection Hx - hunting guide Hx Respiratory Tract Infection No 11/07/24 09:49 STOP Sleep Apnea STOP Sleep Apnea - hunting guide: STOP Sleep Apnea - hunting guide Hx Hypertension Yes: CONTROLLED ON MED 11/07/24 09:49 Hx Sleep Apnea No 11/07/24 09:49 CPAP BIPAP Do you snore loudly (louder No 11/07/24 09:49 than talking or can be heard Do you often feel tired/ No 11/07/24 09:49 fatigued/ sleepy during daytime? Has anyone observed you stop No 11/07/24 09:49 breathing during sleep? STOP Results Negative 11/07/24 09:49 QUESTION #5 FULL TEXT : Do you snore loudly (louder than talking or can be heard through closed doors)? 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 Specify any problems Hx of Preganancy in last 3 No 11/07/24 09:49 Months Nurse Filling Out Transfusion VCHRISTIN 11/07/24 09:49 & Questions: Date: 11/07/24 11/07/24 09:49 Time: 09:50 11/07/24 09:49 Patient unable to answer at this time (ie. confused, unrespo /Reproduction History /Reproductive History - hunting guide: /Reproductive Hx- hunting guide Hx Now No 11/07/24 09:49 Gestational Age (in weeks): EDC: Hx Hx Para Hx Section SAB No 11/07/24 09:49 PFSH Medical History Impacted cerumen of both ears Kidney stone Wears glasses Anxiety High cholesterol Non-smoker History of edema History of atrial fibrillation Elevated alkaline phosphatase level Back pain Mood swings ER+ (estrogen receptor positive status) Osteopenia Breast cancer, right Abnormal mammogram of right breast Arthritis Gastritis Hyperlipidemia Afib Chronic insomnia Cystitis Coronary artery dilation Depression Hypertension Home Medications ?Medication ?Instructions ?Recorded ?Last Taken ?Type diltiazem HCl 240 mg 240 mg PO DAILY BP 08/27/20 12/09/23 07:30 History capsule,extended release 24 hr, controlled pravastatin 80 mg tablet 80 mg PO DAILY CHOLESTEROL 0 08/27/20 05/03/23 History sertraline 50 mg tablet 50 mg PO DAILY DEPRESSION 05/03/23 History trazodone 50 mg tablet 50 mg PO QHS SLEEP 08/27/20 05/03/23 History magnesium 250 mg tablet 500 mg PO DAILY SUPPLEMENT 0 09/15/20 05/03/23 History multivitamin 1 each PO DAILY SUPPLEMENT 0 09/15/20 05/03/23 History nortriptyline 25 mg capsule 25 mg PO DAILY PRN sleep 0 08/30/22 04/30/23 History pregabalin 75 mg capsule 150 mg PO BID PAIN 08/30/22 12/09/23 History calcium 500 mg tablet 1,200 mg PO DAILY SUPPLEMENT 04/21/23 05/03/23 History cholecalciferol (vitamin D3) 125 125 mcg PO DAILY SUPP LEMENT 11/29/23 Unknown History mcg (5,000 unit) tablet (Vitamin D3) warfarin 1 mg tablet 2 mg PO SUTUTHSA BLOOD THINN ER 11/29/23 12/05/23 History warfarin 3 mg tablet 3 mg PO .COMPLEX BLOOD THINN ER 11/29/23 12/05/23 History anastrozole 1 mg tablet 1 mg PO DAILY BREAST CANCER #90 09/19/24 Unknown Rx tabs Lactobacillus acidophilus 10 100 mmu cells PO DAILY MUÑOZ PPLEMENT 11/07/24 Unknown History billion cell capsule (NewFlora) docusate sodium 100 mg capsule 200 mg PO BID STOOL SOF TENER 11/07/24 Unknown History (Col-Rite) duloxetine 60 mg capsule,delayed 60 mg PO DAILY DEPRES MAGNUS 11/07/24 Unknown History release (Cymbalta) famotidine 20 mg tablet (Acid 20 mg PO DAILY PRN GERD 11/07/24 Unknown History Controller) Allergy/AdvReac Type Severity Reaction Status Date / Time ciprofloxacin Allergy Unknown unknown Verified 11/07/24 09:34 Sulfa (Sulfonamide Allergy Unknown unknown Verified 11/07/24 09:34 Antibiotics) Family History Mother Hypertension Afib Sister Afib Hypertension Surgical History (Updated 11/07/24 @ 09:48 by Tiffanie Lopez) Hx of cystoscopy Hx of surgical procedure Hx of surgical procedure History of lumpectomy of right breast History of ankle surgery History of right breast biopsy (~09/02/20) Hx of breast biopsy History of hip replacement, total Hx of cataract extraction Hx of cholecystectomy Hx of right breast biopsy Social History Smoking Status: Never smoker second hand exposure: No alcohol intake: current alcohol intake frequency: a few times a month Alcohol type: wine substance use type: does not use diet: Weight Watchers caffeine: Yes what type of physical activity do you participate in: swimming and aerobics frequency: other Audit: Pertinent Findings Pertinent Findings EKG Perinent findings: April 26, 2023. Atrial fibrillation Recommendation Anesthesia Recommendation Anesthesia recommendation: F/U recommended (Patient has single EKG with atrial fibrillation at 1 point in time. She is having major surgery and will need cardiac clearance.)
--- NOTE | 2024-11-09 11:04 | PAT.ANE_ITS ---
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 When Was Last Pacemaker Check QUESTION #4 FULL TEXT: You/Your Family Experience fever (hyperthermia) with Anesthesia Last Oral Intake Last Oral intake: Last Oral Intake NPO since Meds taken in AM with sips of water? Meds patient instructed to take am of surgery PONV PONV - investigation division captain: PONV - investigation division captain Female Yes 11/07/24 09:49 HX of Motion Sickness No 11/07/24 09:49 HX of N/V After Surgery No 11/07/24 09:49 Non-Smoker Yes 11/07/24 09:49 Duration of Surgery greater Yes 11/07/24 09:49 than 60 minutes Number of Risk Factors 3 11/07/24 09:49 PONV Score Moderate Risk 11/07/24 09:49 Height & Weight Height & Weight: Anesthesia: Height & Weight Height 5 ft 5 in 09/13/24 13:55 Respiratory Assessment Respiratory Assessment - investigation division captain: Respiratory Tract Infection Hx - investigation division captain Hx Respiratory Tract Infection No 11/07/24 09:49 STOP Sleep Apnea STOP Sleep Apnea - investigation division captain: STOP Sleep Apnea - investigation division captain Hx Hypertension Yes: CONTROLLED ON MED 11/07/24 09:49 Hx Sleep Apnea No 11/07/24 09:49 CPAP BIPAP Do you snore loudly (louder No 11/07/24 09:49 than talking or can be heard Do you often feel tired/ No 11/07/24 09:49 fatigued/ sleepy during daytime? Has anyone observed you stop No 11/07/24 09:49 breathing during sleep? STOP Results Negative 11/07/24 09:49 QUESTION #5 FULL TEXT : Do you snore loudly (louder than talking or can be heard through closed doors)? 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 Specify any problems Hx of Preganancy in last 3 No 11/07/24 09:49 Months Nurse Filling Out Transfusion VCHRISTIN 11/07/24 09:49 & Questions: Date: 11/07/24 11/07/24 09:49 Time: 09:50 11/07/24 09:49 Patient unable to answer at this time (ie. confused, unrespo /Reproduction History /Reproductive History - investigation division captain: /Reproductive Hx- investigation division captain Hx Now No 11/07/24 09:49 Gestational Age (in weeks): EDC: Hx Hx Para Hx Section SAB No 11/07/24 09:49 PFSH Medical History Impacted cerumen of both ears Kidney stone Wears glasses Anxiety High cholesterol Non-smoker History of edema History of atrial fibrillation Elevated alkaline phosphatase level Back pain Mood swings ER+ (estrogen receptor positive status) Osteopenia Breast cancer, right Abnormal mammogram of right breast Arthritis Gastritis Hyperlipidemia Afib Chronic insomnia Cystitis Coronary artery dilation Depression Hypertension Home Medications ?Medication ?Instructions ?Recorded ?Last Taken ?Type diltiazem HCl 240 mg 240 mg PO DAILY BP 08/27/20 12/09/23 07:30 History capsule,extended release 24 hr, controlled pravastatin 80 mg tablet 80 mg PO DAILY CHOLESTEROL 0 08/27/20 05/03/23 History sertraline 50 mg tablet 50 mg PO DAILY DEPRESSION 05/03/23 History trazodone 50 mg tablet 50 mg PO QHS SLEEP 08/27/20 05/03/23 History magnesium 250 mg tablet 500 mg PO DAILY SUPPLEMENT 0 09/15/20 05/03/23 History multivitamin 1 each PO DAILY SUPPLEMENT 0 09/15/20 05/03/23 History nortriptyline 25 mg capsule 25 mg PO DAILY PRN sleep 0 08/30/22 04/30/23 History pregabalin 75 mg capsule 150 mg PO BID PAIN 08/30/22 12/09/23 History calcium 500 mg tablet 1,200 mg PO DAILY SUPPLEMENT 04/21/23 05/03/23 History cholecalciferol (vitamin D3) 125 125 mcg PO DAILY SUPP LEMENT 11/29/23 Unknown History mcg (5,000 unit) tablet (Vitamin D3) warfarin 1 mg tablet 2 mg PO SUTUTHSA BLOOD THINN ER 11/29/23 12/05/23 History warfarin 3 mg tablet 3 mg PO .COMPLEX BLOOD THINN ER 11/29/23 12/05/23 History anastrozole 1 mg tablet 1 mg PO DAILY BREAST CANCER #90 09/19/24 Unknown Rx tabs Lactobacillus acidophilus 10 100 mmu cells PO DAILY MUÑOZ PPLEMENT 11/07/24 Unknown History billion cell capsule (NewFlora) docusate sodium 100 mg capsule 200 mg PO BID STOOL SOF TENER 11/07/24 Unknown History (Col-Rite) duloxetine 60 mg capsule,delayed 60 mg PO DAILY DEPRES MAGNUS 11/07/24 Unknown History release (Cymbalta) famotidine 20 mg tablet (Acid 20 mg PO DAILY PRN GERD 11/07/24 Unknown History Controller) Allergy/AdvReac Type Severity Reaction Status Date / Time ciprofloxacin Allergy Unknown unknown Verified 11/07/24 09:34 Sulfa (Sulfonamide Allergy Unknown unknown Verified 11/07/24 09:34 Antibiotics) Family History Mother Hypertension Afib Sister Afib Hypertension Surgical History (Updated 11/07/24 @ 09:48 by Tiffanie Lopez) Hx of cystoscopy Hx of surgical procedure Hx of surgical procedure History of lumpectomy of right breast History of ankle surgery History of right breast biopsy (~09/02/20) Hx of breast biopsy History of hip replacement, total Hx of cataract extraction Hx of cholecystectomy Hx of right breast biopsy Social History (Reviewed 09/06/24 @ 13:20 by Marissa Johnson Smoking Status: Never smoker second hand exposure: No alcohol intake: current alcohol intake frequency: a few times a month Alcohol type: wine substance use type: does not use diet: Weight Watchers caffeine: Yes what type of physical activity do you participate in: swimming and aerobics frequency: other Audit: Pertinent Findings HISTORY of Pertinent Findings History of Pertinent Findings: EKG Pertinent Findings EKG Perinent findings April 26, 2023. Atrial 11/08/24 16:12 fibrillation Pertinent Findings EKG Perinent findings: 11/08/2024. Atrial fibrillation. 86 bpm. Also in atrial fibrillation in 2022. Recommendation Anesthesia Recommendation Anesthesia recommendation: OPTIMIZED for anesthesia
[2024-11-10 06:27] LABS: Hepatitis A AB, Total Negative (Negative)
[2024-11-21] VITALS (17 sets, daily range): BP systolic 122–149; BP diastolic 67–100; PULSE 80–92; RESP 15–18; TEMP 36.1–37; O2SAT 93–99; BMI 40.1; BMI 38.9
[2024-11-21 06:36] LABS: Prothrombin Time (Protime)PT. 13.1 SECONDS (11.7-14.9)
[2024-11-21] MEDS: Lactated Ringers 1,000 ML 15 ML IV (06:40)
[2024-11-21] MEDS: Magnesium 1 GM over 15 mins IV (06:40)
[2024-11-21] MEDS: Acetaminophen 500 MG Tablet 1000 MG PO ×2 (06:41→21:16)
--- NOTE | 2024-11-21 06:49 | PCM.PRE.AN2 ---
ASA Classification* ASA Classification ASA Classification: 3 Assessment & Plan Anesthesia* Anesthesia Assessment Anesthesia Assessment: Discussed sedation and/or anesthesia options, risks, benefits, and alternatives with patient/parents/legal guardian/POA. Questions invited. The patient/parents/legal guardian/POA seems to understand and agrees to proceed with anesthesia plan. Reviewed the physical assessment, medical history, allergy history and patient home medications list prior to surgery/procedure/anesthetic and documented any changes. Performed airway and anesthesia risk assessments. Anesthesia Type Anesthesia Type: General Anesthesia Focused Assessment* Temperature: 97.6 F Pulse Rate: 80 Blood Pressure: 131/67 Respiratory Rate: 18 Pulse Ox: 98 Airway Assessment Mouth opens: >3 cm Mallampati Score: II Focused Labs Anesthesia Preop lab: CBC WBC 7.4 K/mm3 (4.4-11.0) 11/08/24 12:15 11/08/24 RBC 4.84 M/mm3 (4.2-5.4) 11/08/24 12:11/08/24 Hgb 13.8 g/dL (12.0-15.0) 11/08/24 12:15 11/08/24 Hct 42.8 % (37-47) 11/08/24 12:11/08/24 Plt Count 229 K/mm3 (150-450) 11/08/24 12:15 11/08/24 CHEMISTRY Potassium 4.2 mmol/L (3.3-5.1) 11/08/24 12:15 11/08/24 Sodium 141 mmol/L (133-145) 11/08/24 12:15 11/08/24 Magnesium 2.0 mg/dL (1.5-2.2) 11/08/24 12:13 11/08/24 Phosphorus 3.6 mg/dL (2.5-4.9) 03/05/24 13:20 03/05/24 BUN 23 mg/dL (4-19) H 11/08/24 12:15 11/08/24 Creatinine 0.80 mg/dL (0.70-1.20) 11/08/24 12:15 11/08/24 Glucose 108 mg/dL (70-99) H 11/08/24 12:15 11/08/24 TSH 0.75 uIU/mL (0.358-3.74) 08/04/23 08:49 08/04/23 COAG PT 13.1 SECONDS (11.7-14.9) 11/21/24 05:30 11/21/24 Pre-Assessment Diagnosis/Proposed Procedure Planned Operative Procedure(s): (L) 360 Lumbar Fusion L4-5 and L5-S1, left L2-3 transforaminal discectomy Anesthesia History 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 When Was Last Pacemaker Check QUESTION #4 FULL TEXT: You/Your Family Experience fever (hyperthermia) with Anesthesia Last Oral Intake Last Oral intake: Last Oral Intake NPO since 03:30 11/21/24 06:33 Meds taken in AM with sips of Yes 11/21/24 06:33 water? 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 Female Yes 11/07/24 09:49 HX of Motion Sickness No 11/07/24 09:49 HX of N/V After Surgery No 11/07/24 09:49 Non-Smoker Yes 11/07/24 09:49 Duration of Surgery greater Yes 11/07/24 09:49 than 60 minutes Number of Risk Factors 3 11/07/24 09:49 PONV Score Moderate Risk 11/07/24 09:49 Height & Weight Height & Weight: Anesthesia: Height & Weight Height 5 ft 5 in 11/21/24 06:33 Weight: 109.5 kg 11/21/24 06:33 Body Mass Index (BMI) 40.1 11/21/24 06:33 Respiratory Assessment Respiratory Assessment - communications media professor: Respiratory Tract Infection Hx - communications media professor Hx Respiratory Tract Infection No 11/07/24 09:49 STOP Sleep Apnea STOP Sleep Apnea - communications media professor: STOP Sleep Apnea - communications media professor Hx Hypertension Yes: CONTROLLED ON MED 11/07/24 09:49 Hx Sleep Apnea No 11/07/24 09:49 CPAP BIPAP Do you snore loudly (louder No 11/07/24 09:49 than talking or can be heard Do you often feel tired/ No 11/07/24 09:49 fatigued/ sleepy during daytime? Has anyone observed you stop No 11/07/24 09:49 breathing during sleep? STOP Results Negative 11/07/24 09:49 QUESTION #5 FULL TEXT : Do you snore loudly (louder than talking or can be heard through closed doors)? 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 Specify any problems Hx of Preganancy in last 3 No 11/07/24 09:49 Months Nurse Filling Out Transfusion VCHRISTIN 11/07/24 09:49 & Questions: Date: 11/07/24 11/07/24 09:49 Time: 09:50 11/07/24 09:49 Patient unable to answer at this time (ie. confused, unrespo /Reproduction History /Reproductive History - communications media professor: /Reproductive Hx- communications media professor Hx Now No 11/07/24 09:49 Gestational Age (in weeks): EDC: Hx Hx Para Hx Section SAB No 11/07/24 09:49 Active Medications Active Medications: Current Medications Generic Name Dose Route Start Last Admin Trade Name Freq PRN Reason Stop Dose Admin Acetaminophen 1,000 mg 11/21/24 07:30 11/21/24 06:41 Acetaminophen 500 Mg Tablet PO 11/21/24 07:31 1,000 mg X1 ONE Administration Cefazolin Sodium 2 gm/ N/A 20 mls @ 400 mls/hr 11/21/24 07:30 IV 11/21/24 07:32 INTRAOP ONE Tranexamic Acid 1,000 mg/ 110 mls @ 440 mls/hr 11/21/24 07:30 Sodium Chloride IV 11/21/24 07:44 X1 ONE Tranexamic Acid 1,000 mg/ 110 mls @ 440 mls/hr 11/21/24 07:30 Sodium Chloride IV 11/21/24 07:44 X1 ONE Magnesium Sulfate 1 gm/ 102 mls @ 408 mls/hr 11/21/24 07:30 11/21/24 06:40 Dextrose IV 11/21/24 07:44 408 mls/hr INTRAOP ONE Administration Lactated Ringer's 1,000 mls @ 15 mls/hr 11/21/24 05:45 11/21/24 06:40 IV 15 mls/hr .Q48H TRISTAN Administration Insulin Human Lispro 1 - 6 unit 11/21/24 07:30 Insulin Lispro 100 Unit/Ml Insuln.Pen SC 11/21/24 14:00 Q4H PRN PRN BG>/= 180, SEE PROTOCOL Protocol PFSH Medical History Impacted cerumen of both ears Kidney stone Wears glasses Anxiety High cholesterol Non-smoker History of edema History of atrial fibrillation Elevated alkaline phosphatase level Back pain Mood swings ER+ (estrogen receptor positive status) Osteopenia Breast cancer, right Abnormal mammogram of right breast Arthritis Gastritis Hyperlipidemia Afib Chronic insomnia Cystitis Coronary artery dilation Depression Hypertension Home Medications ?Medication ?Instructions ?Recorded ?Last Taken ?Type diltiazem HCl 240 mg 240 mg PO DAILY BP 08/27/20 11/21/24 History capsule,extended release 24 hr, controlled pravastatin 80 mg tablet 80 mg PO DAILY CHOLESTEROL 08/27/20 11/20/24 History sertraline 50 mg tablet 50 mg PO DAILY DEPRESSION 08/27/20 11/20/24 History trazodone 50 mg tablet 50 mg PO QHS SLEEP 08/27/20 11/20/24 History magnesium 250 mg tablet 500 mg PO DAILY SUPPLEMENT 09/15/20 11/20/24 History multivitamin 1 each PO DAILY SUPPLEMENT 09/15/20 11/20/24 History nortriptyline 25 mg capsule 25 mg PO DAILY PRN sleep 08/30/22 11/20/24 History pregabalin 75 mg capsule 150 mg PO BID PAIN 08/30/22 11/21/24 History calcium 500 mg tablet 1,200 mg PO DAILY SUPPLEMENT 04/21/23 11/20/24 History cholecalciferol (vitamin D3) 125 125 mcg PO DAILY SUPPLEMENT 11/29/23 11/20/24 History mcg (5,000 unit) tablet (Vitamin D3) warfarin 1 mg tablet 2 mg PO SUTUTHSA BLOOD THINNER 11/29/23 11/13/24 History warfarin 3 mg tablet 3 mg PO .COMPLEX BLOOD THINNER 11/29/23 11/12/24 History anastrozole 1 mg tablet 1 mg PO DAILY BREAST CANCER #90 09/19/24 11/21/24 Rx tabs Lactobacillus acidophilus 10 100 mmu cells PO DAILY SUPPLEMENT 11/07/24 11/20/24 History billion cell capsule (NewFlora) docusate sodium 100 mg capsule 200 mg PO BID STOOL SOFTENER 11/07/24 11/20/24 History (Col-Rite) duloxetine 60 mg capsule,delayed 60 mg PO DAILY DEPRESSION 11/07/24 11/20/24 History release (Cymbalta) famotidine 20 mg tablet (Acid 20 mg PO DAILY PRN GERD 11/07/24 Unknown History Controller) Allergy/AdvReac Type Severity Reaction Status Date / Time ciprofloxacin Allergy Unknown unknown Verified 11/21/24 06:30 Sulfa (Sulfonamide Allergy Unknown unknown Verified 11/21/24 06:30 Antibiotics) Family History Mother Hypertension Afib Sister Afib Hypertension Surgical History Hx of cystoscopy Hx of surgical procedure Hx of surgical procedure History of lumpectomy of right breast History of ankle surgery History of right breast biopsy (~09/02/20) Hx of breast biopsy History of hip replacement, total Hx of cataract extraction Hx of cholecystectomy Hx of right breast biopsy Social History Smoking Status: Never smoker second hand exposure: No alcohol intake: current alcohol intake frequency: a few times a month Alcohol type: wine substance use type: does not use diet: Weight Watchers caffeine: Yes what type of physical activity do you participate in: swimming and aerobics frequency: other Review of Systems (Anesthesia) ROS Narrative System reviewed and no additional complaints, except as documented.
--- NOTE | 2024-11-21 07:22 | PCM.HP.BLA ---
History and Physical Date of Admission: 11/21/24 MR#: [id number] Acct: [id number] Name: HOLLI SEVILLA Rep #: [id number] : 1945 Provider: Dr. Oswald You MD Age/Sex: 79/F Location: [facility] [place] Status: Signed Intake Vital Signs 09/13/2512:55 Height 5 ft 5 in Intake Visit Reasons: lumbar spine Is patient in pain?: Yes Allergies ciprofloxacin Allergy (Unknown, Verified 11/15/24 14:09) unknownSulfa (Sulfonamide Antibiotics) Allergy (Unknown, Verified 11/15/24 14:09) unknown Medications ?Medication ?Instructions ?Recorded ?Confirmed ?Type diltiazem HCl 240 mg 240 mg PO DAILY BP 08/27/20 11/15/24 History capsule,extended release 24 hr, controlled pravastatin 80 mg tablet 80 mg PO DAILY CHOLESTEROL 08/27/20 11/15/24 History sertraline 50 mg tablet 50 mg PO DAILY DEPRESSION 08/27/20 11/15/24 History trazodone 50 mg tablet 50 mg PO QHS SLEEP 08/27/20 11/15/24 History magnesium 250 mg tablet 500 mg PO DAILY SUPPLEMENT 09/15/20 11/15/24 History multivitamin 1 each PO DAILY SUPPLEMENT 09/15/20 11/15/24 History nortriptyline 25 mg capsule 25 mg PO DAILY PRN sleep 08/30/22 11/15/24 History pregabalin 75 mg capsule 150 mg PO BID PAIN 08/30/22 11/15/24 History calcium 500 mg tablet 1,200 mg PO DAILY SUPPLEMENT 04/21/23 11/15/24 History cholecalciferol (vitamin D3) 125 125 mcg PO DAILY SUPPLEMENT 11/29/23 11/15/24 History mcg (5,000 unit) tablet (Vitamin D3) warfarin 1 mg tablet 2 mg PO SUTUTHSA BLOOD THINNER 11/29/23 11/15/24 History warfarin 3 mg tablet 3 mg PO .COMPLEX BLOOD THINNER 11/29/23 11/15/24 History anastrozole 1 mg tablet 1 mg PO DAILY BREAST CANCER #90 09/19/24 11/15/24 Rx tabs Lactobacillus acidophilus 10 100 mmu cells PO DAILY SUPPLEMENT 11/07/24 11/15/24 History billion cell capsule (NewFlora) docusate sodium 100 mg capsule 200 mg PO BID STOOL SOFTENER 11/07/24 11/15/24 History (Col-Rite) duloxetine 60 mg capsule,delayed 60 mg PO DAILY DEPRESSION 11/07/24 11/15/24 History release (Cymbalta) famotidine 20 mg tablet (Acid 20 mg PO DAILY PRN GERD 11/07/24 11/15/24 History Controller) Have you fallen in the past year?: No PFSH Medical History Impacted cerumen of both ears Kidney stone Wears glasses Anxiety High cholesterol Non-smoker History of edema History of atrial fibrillation Elevated alkaline phosphatase level Back pain Mood swings ER+ (estrogen receptor positive status) Osteopenia Breast cancer, right Abnormal mammogram of right breast Arthritis Gastritis Hyperlipidemia Afib Chronic insomnia Cystitis Coronary artery dilation Depression Hypertension Surgical History (Updated 11/07/24 @ 09:48 by Tiffanie Lopez) Hx of cystoscopy Hx of surgical procedure Hx of surgical procedure History of lumpectomy of right breast History of ankle surgery History of right breast biopsy (~09/02/20) Hx of breast biopsy History of hip replacement, total Hx of cataract extraction Hx of cholecystectomy Hx of right breast biopsy Family History Mother Hypertension AfibSister Afib Hypertension Social History Smoking Status: Never smoker second hand exposure: No alcohol intake: current alcohol intake frequency: a few times a month Alcohol type: wine substance use type: does not use diet: Weight Watchers caffeine: Yes what type of physical activity do you participate in: swimming and aerobics frequency: other HPI lumbar spine Details: This documentation accurately reflects the service provided and the decisions made by me, Dr. Oswald You MD 11/15/24 1401. Part of today?s visit was documented by [ ], acting as scribe. HOLLI SEVILLA is a 79 year old F here today for preop appointment on her lumbar spine. Patient notes that she continues to have low back pain. She notes that she has right leg radiating pain that stops at her knee. She is using a walker to ambulate due to pain. She notes that she takes lyrica and Cymbalta. 09/06/24: HOLLI SEVILLA (PATTY) is a 79 year old F here today for 2 weeks f/u from seeing Erika. She is here to review the DEXA scan that she had on 08/28. She did have her injection with Dr. Chanel on 08/29 that he did at L3-4, L4-5, L5-S1 which did stoker erector and servicer her less than 50% of relief but it still having pain. She would like to discuss surgery further as well. 08/23/2024: She denies any changes. She takes hydrocodone-acetaminophen for pain. New DEXA scan needed. Last injection with Dr. Chanel was July 16 on the left side and that was beneficial for her and improved her pain just on the left. Says that before this injection, she was having similar symptoms on her left side and leg which improved. Currently she only has right sided symptoms but says that the injections only works for several weeks. She has another injection with Dr. Chanel next week for her right side. She takes Warfarin for atrial fibrillation which is managed by her PCP Dr. Lindsey, she does not see cardiology. She has stopped the Warfarin in the past for procedures. 08/14/24: HOLLI SEVILLA (PATTY) is a 79 year old F here today NEW patient for low back pain and nerve pain. As patient is sitting here today she does have some nerve pain radiating down her right leg. This pain starts in her midline lower back to her right side then extends down her hip to her anterior thigh. Typically this pain stops at the knee, however she has noticed that on occasion this pain does extend down to her anterior rehman and into the top of her foot and toes. She describes the leg pain as a tingling numbness. Says that recently she has had to rely on a shopping cart when grocery shopping saying that if she does not have the cart she cannot walk as long. Says that she can walk about 50 feet if that before needing a break. Her pain then resolves upon sitting down and leaning forward. Denies left sided symptoms. She states that she has been having pain for 3 years. She states it started one morning when she woke up she put her socks on stood up and couldn't walk. She has been seeing Dr. Chanel for pain management. He does prescribe her hydrocodone-acetaminophen 5-325. She last had an injection with him on 07/16/24. She states that the injections do help with her pain and is scheduled to have another injection. She states that after one morning she woke up with excruciating pain on the right side and was put on steroids which did help. She then woke up the next Tuesday with the excruciating pain on the right side and was unable to have steroids as she just came off of them so she was put on oxycodone and a muscle relaxer then by that Tuesday she was in the ED with muscle spasms. She did complete PT for the low back 3 months ago but it did help her. She does try to go to the pool as well but due to pain she hasn't been able to recently. When she first wakes up in the morning she has no control over her bladder but throughout the day she is able to control them. She denies any bowel issues but does note she takes a stool softener secondary to being on the narcotic pain medication. She denies previous surgery. She did have an MRI with [facility] on 10/28/21 but denies any recent MRI or xrays. History of atrial fibrillation and takes Eliquis. She is able to stop the Eliquis for any procedures. Since she has had pain in her lumbar spine and down both of her legs. She has had nerve pain down her legs and could barely walk. She states the right leg is worse and the pain is worse above the knee. She does get groin pain and it seems to be worse on the left. She occasionally gets pain below her right knee down to her ankle on the lateral aspect of the leg. She has bilateral SANJU done over at [facility] with Dr. Ocampo. Left hip was done 1.5 years ago and the right hip was done in 2011. Denies any surgery to the back. Does wear a back brace and has been wearing since . Denies any abdominal surgeries. Does have a scar in the belly from gallbladder removal. Did have breast cancer about 4 years ago and did have radiation treatment. Ortho Exam General General: Yes no acute distress Neurologic: Yes alert and Yes oriented x3 Psychologic: Yes reasonable and appropriate Spine SPINE TESTING CERVICAL THORACIC LUMBAR Musculoskeletal Strength 0=absent - 5=normal Details: Neurological exam of the lower extremities shows 5x5 power. Patient had increased pain with right knee extension. Normal sensations across all dermatomes. No hyperreflexia. Mild midline tenderness. No paraspinal tenderness. Passive straight leg raise is negative. Coding Level of Care Code Off vis,est,level 4 Diagnoses Spinal stenosis, lumbar region, with neurogenic claudication M48.062 Lumbar radiculopathy M54.16 Spondylolisthesis, lumbar region M43.16 Osteopenia determined by x-ray M85.80 Time Spent (min) 35 Assessment and Plan Assessment and Plan (1) Spinal stenosis, lumbar region, with neurogenic claudication: Status: Acute (2) Lumbar radiculopathy: Status: Acute (3) Spondylolisthesis, lumbar region: Status: Acute (4) Osteopenia determined by x-ray: Status: Acute Plan Again reviewed imaging in detail with patient today. X-rays show L4-5 L5-S1 grade 1 spondylolisthesis with dynamic instability. MRI shows foraminal stenosis L4-S1. At L2-3 there is disc degeneration with retrolisthesis and left paracentral disc herniation going into the foramen and inferiorly migrating into the lateral recess. Osteopenia noticed on x-rays. Again explained imaging findings in detail. Patient developed significant neurogenic claudication and instability which caused below the knee on the right side likely arising from the L4-S1 unstable spondylolisthesis. She also has significant radicular pain into the left groin likely arising from the L2-3 disc herniation. Explained different options of treatment which include continued nonoperative treat measures versus surgery. Patient has had numerous injections and is hoping to proceed with surgery. Surgical options were discussed which include L2-S1 decompression fusion versus L4-S1 decompression fusion with L2-3 decompression as L3-4 is fairly stable and does not show significant stenosis. Surgery will be L4-S1 and posterior fusion with indirect decompression with L2-3 transforaminal decompression on the left, possibly on the right as well. Explained the risks and benefits of the surgical procedure. Explained difficulty with pain control postoperatively due to her low pain tolerance from long-term opiate intake. The risks include but not limited to infection, bleeding, injury to nerves and vessels, hematoma, need for further surgery, ileus, visceral injury, vascular injury, DVT, pulmonary embolism, pneumonia, atelectasis, hardware failure, pseudoarthrosis, adjacent segment degeneration, persistent pain, persistent numbness and weakness, cardiopulmonary event. Patient understands and agrees to proceed with surgery. Consent was signed.
[2024-11-21] MEDS: Cefazolin 2 GM in Syringe 10 ML IV ×2 (07:50→21:07)
[2024-11-21] MEDS: TRANEXAMIC ACID 1,000 MG in 0.9% Normal Saline (100mL Bag) 100 ML 440 MG IV ×2 (07:52→13:38)
--- NOTE | 2024-11-21 07:55 | RAD_ITS ---
PROCEDURE: LUMBAR SPINE 2 OR 3 VIEWS 11/21/2024 REASON FOR EXAM: 360 LUMBAR FUSION L4-5 AND L5-S1, LEFT L2-3 TRANSFORAMINAL DISCEC TECHNIQUE: Intraoperative fluoroscopic services. 4 minutes and 20 seconds of fluoroscopy. 195.9 mGy. COMPARISON: None available. FINDINGS: Intraoperative imaging provided for L4-L5 and L5-S1 fusion with prosthetic disc placement. RAD/Lumbar Spine 2 or 3 Views IMPRESSION: Intraoperative imaging provided for fusion at the L4-L5 and L5-S1 levels with p rosthetic disc placement. Reading Location: [facility]
[2024-11-21 10:55] LABS: Bedside Glucose 70 mg/dL (74-106)
[2024-11-21] MEDS: Cefazolin 2 GM in Syringe IV (11:50)
[2024-11-21] MEDS: Ropivacaine 0.5% 30 ML Vial (13:52)
[2024-11-21] MEDS: Bupiv/Epi 0.25% 30 ML Vial (14:24)
--- NOTE | 2024-11-21 14:57 | PCM.POST.ANE ---
Anesthesia: Postop Eval I Current Vital Signs Temperature: 97 F Pulse Rate: 88 Blood Pressure: 125/74 Respiratory Rate: 16 Pulse Ox: 93 Oxygen Delivery Method: Simple Mask Oxygen Flow Rate (L/min): 8 Assessment Airway patent: Yes Spontaneous unlabored respirations: Yes Mental status: Awake and Calm nausea: No Vomiting: No Anesthesia Complication: No Fluid Hydration Crystalloid volume administer (ml): 2,300 Total IV fluid infused: 2,300 Progress Note Anesthesia document: Postop Eval 1 completed: Yes
--- NOTE | 2024-11-21 15:13 | PCM.OPRPT ---
Procedures Musculoskeletal [id number]: Other Procedure See Report Operative Report (Standard) Operative Information Date of Procedure: 11/21/24 Pre-Operative Diagnosis: L4-5, L5-S1 spondylolisthesis, stenosis, L2-3 right foraminal stenosis Post-Operative Diagnosis: Same Surgery/Procedure Performed: L4-5, L5-S1 oblique lumbar interbody fusion rn new grad: Yes Utility Tender Carding: Kofi Luis Tasks completed by certified first assistant: Other ([id number] surgery, surgical access) Additional assistant quality manager?: Yes Additional Consumer Safety Inspector #2: Erika Gallegos Tasks completed by assistant quality manager #2: Closing, Hemostasis: Electrocautery and Retracting Type of Anesthesia: General RN Documented Start/Stop Times: Operation Date: 11/21/24 07:30 Case Time Into Pre-Op 11/21/24 05:38 Out of Pre-Op 11/21/24 07:29 Anesthesia Start 11/21/24 07:35 Into Room 11/21/24 07:35 Procedure Start 11/21/24 08:18 Procedure End 11/21/24 14:31 Anesthesia End 11/21/24 14:47 Out of Room 11/21/24 14:47 Procedure Start Time: 08:18 Procedure Stop Time: 14:31 Select all DRAINS/GRAFTS/IMPLANTS that apply: Graft Graft details: Allograft cancellous bone chips, autologous bone marrow aspirate and Implanted device Implanted device details: DePuy cougar lateral lumbar interbody cage?peek Estimated Blood Loss: 150 cc Specimen collected: No Description of surgery: Preoperative diagnosis: L4-5, L5-S1 spondylolisthesis, stenosis with neurogenic claudication, L2-3 disc degeneration with right foraminal stenosis Postoperative diagnosis: Same Name of procedures L4-5, L5-S1 oblique lumbar interbody fusion (OLIF), minimally invasive right sided approach, lateral decubitus: ? L4-5 anterolateral spinal fusion 36000 ? L5-S1 anterolateral fusion /51 ? L4-5 insertion of cage [id number] ? L5-S1 insertion of cage /51 ? Bone graft aspirate left iliac crest separate incision ? Allograft cancellous chips Attending Surgeon: Dr. Oswald You Co-surgeon: Dr. Kofi Luis Estimated blood loss: 150 mL Anesthesia: General Complications: None Indications: Patient is a 79-year-old pleasant lady who has had a long history of low back pain and right lower extremity radiation, difficulty walking distances. Initially she had some left-sided radiation likely from an L2-3 left-sided paracentral foraminal disc herniation but this resolved with steroids. Her current symptoms are predominantly right-sided along with claudication. Xrays & MRI revealed L4-5 and L5-S1 spondylolisthesis with instability with stenosis. L2-3 showed disc degeneration with severe right foraminal stenosis, left paracentral disc extrusion. After undergoing a prolonged period of nonoperative treatment, the patient elected to undergo surgical decompression & fusion. All surgical options were discussed with the patient including anterior and posterior approaches. All risks and benefits associated with the procedure were explained to the patient. The risks include but are not limited to infection, bleeding, injury to nerves and vessels including major vessels like IVC and aorta, persistent paresthesia, persistent pain, dural tear, need for further procedures, adjacent segment degeneration, pseudoarthrosis, hardware failure, retrograde ejaculation, paralytic ileus, etc. Procedure: The patient was identified in the preoperative holding suite using Unique patient identifiers. Skin was marked, consent was reviewed, and all questions were answered. The patient was then brought back to the operative room. A surgical timeout was performed to make sure correct procedure was being done on the correct patient and all operative room staff were on the same page. General endotracheal anesthesia was then given to the patient. Martin catheter was inserted. The patient was then carefully positioned in left lateral decubitus position with the right side up on a regular OR table. Axillary roll was placed and all bony prominences were well- padded. Hip positioners were placed in the posterior buttocks and anterior sternal area. The surgical area was prepped and draped in usual fashion. Preoperative antibiotic was injected IV as preoperative antibiotic. A final timeout was then again done just before starting the procedure. A 2 inch incision oblique was taken in the right lower quadrant of the abdomen 2 fingerbreadths away from the iliac crest and the lower ribs. Sharp dissection with Bovie was carried out up to the fascia covering the external oblique. The external oblique, internal oblique and transversus abdominis muscles were split along the muscle fibers and retroperitoneal space was entered. Sponge sticks were utilized to move the bowel and peritoneum [id number] and psoas muscle was exposed staying within the retroperitoneal plane. [employer] retractor system was positioned and the retractor blade was applied onto the psoas. The interval between psoas and IVC was developed and appropriate retractors were placed. Once adequate interval was cleared, a disc space was identified and a marker x-ray was taken. This identified the L4-5 disc level. The prepsoas interval was then traced inferiorly. Right L5 segmental vein or iliolumbar vein was identified at the level of the L5 body. This was ligated and divided by Dr. Luis. Please see separate note by Dr. Luis. The right common iliac vein was then carefully retracted medially to expose the L5-S1 disc. Annulotomy was done with a long handled knife starting at L5-S1. Pituitary was used to remove disc material. Curettes were used to prepare the endplates. Disc space spreaders were utilized to distract and increase the disc height. Near complete discectomy was performed. Trials of serially increasing sizes were used. A Jamshidi needle was used to aspirate bone marrow from the left anterior iliac crest through a separate incision and this aspirate was mixed with the allograft bone chips. A Depuy [place] cage of size of the 18 x 45 x 14 mm with 15 degrees lordosis was packed with corticocancellous allograft bone chips mixed with bone marrow aspirate. This was inserted into the L5-S1 disc space. The retractors were then repositioned to expose the L4-5 disc and the procedure was repeated with complete discectomy and endplate preparation. Smaller disc distractors were also used to bluntly perform a contralateral annulotomy at the L4-5 level. Cage size was 18 x 15 x 12 mm at L4-5. AP and lateral C-arm pictures were taken to confirm good position of the cage. Some bone chips were also packed around the cages. Screw with washer was placed into the lower L5 and L4 body with a washer partially covering the cage at L5-S1 and L4-5 respectively. Hemostasis was confirmed. The retractor blades were removed. Closure was done in layers with a continuous strand of # 1 Vicryl in all muscle layers. 2-0 Vicryl was used for subcutaneous tissue and 4-0 for Monocryl for the skin. Steri-Strips were applied and 4 x 4 gauze and Tegaderm were applied. Consumer Safety Inspector Erkia Gallegos PA-C. My physician assistant quality manager was a vital part of this case. They were important in appropriate retraction during the case, and protection of soft tissues during the procedure. Their intimate knowledge of the case and my steps aided in safe and expedient completion of the procedure as well as appropriate position of the patient during the surgery. They were also vital in assisting with closure under my direct supervision. Surgical Findings: See operative note Complications Complications: No
--- NOTE | 2024-11-21 15:19 | OP.PCM_ITS ---
Procedures Musculoskeletal 20xxx-29xxx: Other Procedure See Report Operative Report (Standard) Operative Information Date of Procedure: 11/21/24 Pre-Operative Diagnosis: L4-5, L5-S1 spondylolisthesis, stenosis, L2-3 right foraminal stenosis Post-Operative Diagnosis: Same Surgery/Procedure Performed: L4-S1 posterior spinal instrumented fusion, L2-3 right foraminal decompression through extraforaminal approach manufacturing assistant: Yes Bank Secrecy Act Officer: Erika Gallegos Tasks completed by trade sales assistant: Closing, Removing tissue, Implanting device, Hemostasis: Electrocautery and Retracting Type of Anesthesia: General RN Documented Start/Stop Times: Operation Date: 11/21/24 07:30 Case Time Into Pre-Op 11/21/24 05:38 Out of Pre-Op 11/21/24 07:29 Anesthesia Start 11/21/24 07:35 Into Room 11/21/24 07:35 Procedure Start 11/21/24 08:18 Procedure End 11/21/24 14:31 Anesthesia End 11/21/24 14:47 Out of Room 11/21/24 14:47 Procedure Start Time: 08:18 Procedure Stop Time: 14:31 Select all DRAINS/GRAFTS/IMPLANTS that apply: Graft Graft details: Allograft cancellous bone chips and Implanted device Implanted device details: DePuy Moveratier prime pedicle screw instrumentation Estimated Blood Loss: 150 cc Specimen collected: No Description of surgery: Preoperative diagnosis: L4-5, L5-S1 spondylolisthesis, stenosis with neurogenic claudication, L2-3 disc degeneration with severe right foraminal stenosis Postoperative diagnosis: Same Name of procedures: L4-S1 posterior percutaneous pedicle screw instrumented fusion, right L2-3 foraminal decompression through extraforaminal approach prone: ? L4-5 posterior spinal fusion 58919 ? L4-S1 posterior pedicle screw instrumentation 11648 ? L5-S1 posterior fusion 94747/51 . L2-3 right foraminal decompression through extraforaminal approach 56556 ? Allograft cancellous chips [id number] Attending Surgeon: Dr. Oswald You Estimated blood loss: [] mL (total for entire case) Anesthesia: General Complications: None Description of procedure: After the anterior procedure was complete, the patient was then turned supine. The patient was then transferred to Lester table in prone position. Neuromonitoring leads were applied. Back was prepped and draped in usual fashion. C-arm AP view was then taken. C-arm was positioned in a way that L4 was centralized and superior endplate of was parallel to the beam. Spinous process was centered between the pedicles. Midline was marked with skin marker and lateral borders of the pedicles were also marked. Skin marker was also utilized to alexandr transversely across the middle of the pedicles at L4. 2 transverse paramedian incisions of 1 inch were placed. The fascia was incised vertically. Finger dissection was utilized to palpate the transverse process and facet joint. Viper Prime screws with towers were inserted and docked onto the transverse processes. This was then slowly moved medially to reach the superior articular process of L4. This was then confirmed on C-arm and then a mallet was utilized to drive the trocar into the pedicle going up to the medial wall of the pedicle on AP view. This was performed both sides. C-arm lateral view confirmed that the tip of the trocar was in the vertebral body, and the screw was advanced into the pedicle and vertebral body. This was repeated similarly at L5 and S1 through separate vertical paramedian incisions. Screw sizes were 7 x 50 mm at L4, L5 and S1 bilaterally. 70 mm precontoured titanium 5.5 mm lordotic louisa on both sides were then passed through the screw extensions and reduced down to the screws with the help of [employer] instrumentation system on both sides. AP and lateral view of the C-arm showed good positioning of the screws and cages. Final tightening with the torque screwdriver was then completed. Carol Ann was utilized to roughen the facet joint at L4-5 and L5-S1 on the left side. Cancellous allograft bone chips mixed with bone marrow aspirate were then placed over this decorticated area. Hemostasis was achieved. Closure was done in layers with 0 Vicryls for the fascia, 2-0 Vicryls for the subcutaneous tissue, and Monocryl for the skin. Dermabond was applied. Dressings were applied covered with Tegaderm. L2-3 disc space was then visualized in AP orthogonally and a skin alexandr was placed laterally. Lateral view was then taken to identify the length away from the midline for the incision. A transverse paramedian incision was taken in line with the L2-3 disc space and serial dilators were utilized and a cannula was placed onto the junction of the superior border of TP and lateral border of supraventricular process of L3 on the right. Under direct light based visualiza tion, bipolar was utilized to achieve hemostasis. Pituitary was utilized to remove remnant muscle tissue to expose the lateral edge of the superior articular process. A bur was utilized to remove a portion of the superior medial transverse process, superior L3 pedicle, lateral superior articular process of L3. Minimal burring was performed so as not to damage the facet joint. Kerrison rongeur was utilized to undercut the SAP from the lateral aspect. The flavum over the extraforaminal region of the L2 nerve root was then carefully dissected with the help of a ballpoint probe and removed with Kerrison rongeurs. Adequate decompression of the right L2 foramen was achieved and confirmed. The tubular retractor was then removed. Pressure was applied. Marcaine with epinephrine was injected into this track for hemostasis. 2-0 Vicryl was utilized to close the subcutaneous tissue and Dermabond for the skin. 2 x 2 gauze was then placed over the wound covered with Tegaderm. The patient was then turned supine onto a hospital bed. The patient was extubated and taken to PACU in stable condition. The patient tolerated the procedure well and no complications occurred. MobileDevHQgar cage & Viper Prime minimally invasive pedicle screw instrumentation system was utilized in this case. No dural tear was identified intraoperatively. Neuromonitoring was utilized for the posterior a spect of the procedure during placement of screws as well as during the L2-3 foraminal decompression. All potentials remained at baseline through the procedure. I was present for the entirety of the case and performed the surgery. Surgical Findings: See operative note Complications Complications: No
--- NOTE | 2024-11-21 15:48 | PCM.OPRPT ---
Operative Report (Standard) Operative Information Date of Procedure: 11/21/24 Pre-Operative Diagnosis: L4-5, L5-S1 spondylolisthesis, stenosis with neurogenic claudication, L2-3 disc degeneration with right foraminal stenosis Post-Operative Diagnosis: Same Surgery/Procedure Performed: L4-5, L5-S1 oblique lumbar interbody fusion (OLIF), minimally invasive right sided approach, lateral decubitus: ? L4-5 anterolateral spinal fusion 56710 ? L5-S1 anterolateral fusion 08892/51 ? L4-5 insertion of cage 43458 ? L5-S1 insertion of cage 08325/51 ? Bone graft aspirate left iliac crest separate incision ? Allograft cancellous chips warehouse record clerk: Yes Regional Transfer Liaison: Erika Gallegos Tasks completed by metallurgical laboratory assistant: Opening, Closing, Opening & closing, Hemostasis: Tie and Retracting Type of Anesthesia: General RN Documented Start/Stop Times: Operation Date: 11/21/24 07:30 Case Time Into Pre-Op 11/21/24 05:38 Out of Pre-Op 11/21/24 07:29 Anesthesia Start 11/21/24 07:35 Into Room 11/21/24 07:35 Procedure Start 11/21/24 08:18 Procedure End 11/21/24 14:31 Anesthesia End 11/21/24 14:47 Out of Room 11/21/24 14:47 Into Recovery 11/21/24 14:49 Procedure Start Time: 08:30 Procedure Stop Time: 11:30 Select all DRAINS/GRAFTS/IMPLANTS that apply: Graft Graft details: Allograft cancellous bone chips, autologous bone marrow aspirate and Implanted device Implanted device details: DePuy ScoopStakegar lateral lumbar interbody cage-peek Estimated Blood Loss: 150 Specimen collected: No Description of surgery: Co-surgeon: Dr. You and Dr. Luis HPI: Patient is a 79-year-old female with multilevel lumbar degenerative disc disease evaluated by Dr. oYu and be appropriate for oblique lumbar interbody fusion of L4-L5, L5-S1. Vascular surgery services been requested for exposure of the disc space and mobilization of the great vessels of the abdomen and pelvis. Description of procedure: Upon obtaining form consent and verification correct patient procedure site patient was taken to the operating where she was placed under general anesthesia. She was then positioned prepped and draped in usual sterile fashion time was performed. Oblique incision was made superior to the iliac crest and Bovie electrocautery was dissect down through subcutaneous tissue to the level the fascia. The fascia was then divided and the muscles of the abdominal wall split along the orientation of their fibers. Hand-held retractors were then placed in the wound and further dissection carried down into the retroperitoneal space at which point blunt dissection was utilized to mobilize the abdominal contents off the lateral and posterior aspect of the abdominal cavity exposing the psoas muscle. At this point self-retaining retractors were put in position and further dissection mobilizing the psoas muscle and retracting it posterior laterally was performed exposing the L4-L5 disc space. This was then marked with Bovie and dissection then carried towards the L5-S1 disc space mobilizing the right iliac vein and retracting it anterior medially. The iliolumbar vein was identified, ligated with silk ties medium clips and an Endoloop and then divided. The vein was then further retracted and the L5-S1 disc space exposed. At this point Dr. You performed the discectomy and implant placement which he will dictate in further detail. After this was completed the retractors were then repositioned in the iliac vein as well as the ligated iliolumbar vein inspected and found to be satisfactory. Retractors were then positioned to expose the L4-L5 disc space and the soft tissue covering the lateral aspect dissected free. At this point Dr. oYu formed the discectomy and implant placement which he will again dictate separately in greater detail. Once this was completed the structures of the retroperitoneum were inspected and found to be satisfactory with no evidence of any vascular injury and there was satisfactory hemostasis observed. The self-retaining retractors were then withdrawn and the superficial wound space irrigated with saline. The 3 muscle layers of the abdominal wall were then closed separately with 1 Vicryl running suture. The skin was then closed with 2-0 Vicryl followed by 4 Monocryl. Dry sterile dressing was then applied and the patient was then repositioned for posterior approach which Dr. You will dictate separately. Surgical Findings: see above Complications Complications: No
--- NOTE | 2024-11-21 15:50 | POSTOPAN2_ITS ---
Anesthesia Postop Eval I Sum Postop Eval Completion status Anesthesia document: Postop Eval 1 completed: Yes Anesthesia Postop Eval I Summary Anesthesia Postop Eval I Summary: Anesthesia Postop Eval I: Assessment Summary Airway patent Yes 11/21/24 14:58 BENCH [email or web address] Spontaneous unlabored Yes 11/21/24 14:58 BENCH [email or web address] respirations Mental status Awake,Calm 11/21/24 14:58 BENCH [email or web address] nausea No 11/21/24 14:58 BENCH [email or web address] Vomiting No 11/21/24 14:58 BENCH [email or web address] Anesthesia Postop Eval I: Fluid Summary Crystalloid volume administer 2,300 11/21/24 14:58 BENCH [email or web address] (ml) Colloids volume administered ( ml) Blood Product volume administered (ml) Total IV fluid infused 2,300 11/21/24 14:58 BENCH [email or web address] Anesthesia Postop Eval I: Summary Notes Anesthesia Complication No 11/21/24 14:58 BENCH [email or web address] Anesthesia Complication Comment: Post-operative progress note Anesthesia: Postop Eval II Evaluation Mental status: Awake Pain Level: 2 nausea: No Vomiting: No
--- NOTE | 2024-11-21 15:50 | PCM.POSTANE2 ---
Anesthesia Postop Eval I Sum Postop Eval Completion status Anesthesia document: Postop Eval 1 completed: Yes Anesthesia Postop Eval I Summary Anesthesia Postop Eval I Summary: Anesthesia Postop Eval I: Assessment Summary Airway patent Yes 11/21/24 14:58 PROJECT [email or web address] Spontaneous unlabored Yes 11/21/24 14:58 PROJECT [email or web address] respirations Mental status Awake,Calm 11/21/24 14:58 PROJECT [email or web address] nausea No 11/21/24 14:58 PROJECT [email or web address] Vomiting No 11/21/24 14:58 PROJECT [email or web address] Anesthesia Postop Eval I: Fluid Summary Crystalloid volume administer 2,300 11/21/24 14:58 PROJECT [email or web address] (ml) Colloids volume administered ( ml) Blood Product volume administered (ml) Total IV fluid infused 2,300 11/21/24 14:58 PROJECT [email or web address] Anesthesia Postop Eval I: Summary Notes Anesthesia Complication No 11/21/24 14:58 PROJECT [email or web address] Anesthesia Complication Comment: Post-operative progress note Anesthesia: Postop Eval II Evaluation Mental status: Awake Pain Level: 2 nausea: No Vomiting: No
[2024-11-21] MEDS: Morphine 4 MG/ML Syringe IV (18:30)
--- NOTE | 2024-11-21 20:40 | PCM.PN.HOSP ---
Reason for Visit Reason for Visit: Diagnoses Encounter for other preprocedural examination (11/21/24) Medical management after L4-S1 posterior spinal instrumented fusion with L2-L3 foraminal decompression through extraforaminal approach postoperative day #0 Subjective Subjective Patient was seen this evening shortly after arrival to the third floor. She denies complaints at this time and is in good spirits. She tolerated procedure well and states she has no acute needs with unremarkable vital signs. Review of her laboratory studies showed hypoglycemia of 70 mg/dL at 6:25 AM likely due to her being n.p.o. for surgery - but we will check hemoglobin A1c to screen for possible underlying diabetes. I spoke with the med-surgical instrument mechanic to review plan of treatment with no new recommendations at this time. Objective Data Objective Data Patient is morbidly obese 79-year-old female. A & O x 4. In no acute distress. Vital Signs: Vital Signs Temp Pulse Resp BP Pulse Ox O2 Del Method O2 Flow Rate 98.6 F 91 18 132/78 H 97 Nasal Cannula 2 11/21/24 20:11 11/21/24 20:11 11/21/24 20:11 11/21/24 20:11 11/21/24 20:11 11/21/24 20:11 11/21/24 20:11 Oxygen Flow Rate (L/min) 2 Oxygen Delivery Method Nasal Cannula Weight: 248 lb 14.43 oz Body Mass Index (BMI) 40.1 Intake & Output: Intake and Output for Last 24 Hours 11/19/24 11/20/24 11/21/24 23:59 23:59 23:59 Intake Total 2220 / 2220 Output Total 550 / 550 Balance 1670 / 1670 Lab / Micro Data Attestation: I reviewed the patient's lab results. 11/22/24 05:31 11/22/24 05:31 Labs: Laboratory Results - last 24 hr 11/21/24 05:30: PT 13.1, INR 1.0 11/21/24 06:25: POC Glucose 70 L Micro: Microbiology 11/08/24 12:15 Swab (Method) Nasal Screen MRSA/MSSA - Final Radiography Diagnostic Testing: Radiology Impression Lumbar Spine X-Ray 11/21/24 07:55 IMPRESSION: Intraoperative imaging provided for fusion at the L4-L5 and L5-S1 levels with prosthetic disc placement. Reading Location: [place] [id number] Physical Exam Const alert, oriented x3 and no apparent distress Constitutional Narrative: Morbidly obese but in good spirits with no acute complaints. General Appearance: cooperative, comfortable and well kempt Exam Limitations: physical limitations Nutritional Appearance: morbidly obese HEENT normocephalic, head/scalp atraumatic, hearing grossly normal bilaterally, external ears normal and nasal mucous membranes and turbinates normal Head and Scalp: normal to inspection, normocephalic and atraumatic Eyes PERRL, EOMs intact bilaterally and conjunctivae normal Neck full ROM General: normal visual inspection Lymph Lymphatic: no lymphadenopathy noted Resp normal respiratory effort and normal air movement Cardio regular rate and regular rhythm GI normal to inspection, nondistended, normoactive bowel sounds, soft to palpation, non-tender and non-distended GI Narrative: Morbidly obese Back/Spine Back/Spine Narrative: Patient is postoperative day 0 after lumbar spinal surgery as noted above. Extremity normal to inspection, full ROM, normal capillary refill, no joint enlargement and no clubbing, cyanosis or edema Skin no rashes or lesions noted Neuro oriented x3, CN's II-XII intact bilaterally, moves all extremities, no focal motor deficits and no sensory deficits noted Speech: speech normal Assessment & Plan Assessment/Plan (1) Lumbar radiculopathy: (2) Spinal stenosis, lumbar region, with neurogenic claudication: (3) Spondylolisthesis at L4-L5 level: (4) Spondylolisthesis, lumbar region: (5) Hypertension: QUALIFIERS: Hypertension type: unspecified Qualified Code(s): I10 - Essential (primary) hypertension (6) Afib: QUALIFIERS: Atrial fibrillation type: unspecified chronic Qualified Code(s): I48.20 - Chronic atrial fibrillation, unspecified (7) Morbid obesity with BMI of 40.0-44.9, adult: PLAN: Plan This patient is a 79-year-old female with a past medical history of essential hypertension; on diltiazem, hyperlipidemia; on pravastatin, morbid obesity with a BMI of 40.2 this admission, history of atrial fibrillation; on diltiazem and warfarin, history of CAD, history of Right-sided ER+ breast cancer; on anastrozole, history of neuropathy; on pregabalin, history of depression; on trazodone q. HS PRN, nortriptyline q. HS PRN, and Cymbalta, history of renal calculi, GERD; with history of gastritis on famotidine daily as needed, history of constipation; on docusate sodium twice daily and OA; with chronic back pain and lumbar radiculopathy who was admitted to the orthopedic service of Dr. You earlier today when she underwent L4-S1 posterior spinal instrumented fusion with L2-L3 foraminal decompression through extraforaminal approach postoperative day #0. The hospitalist service was consulted for postoperative medical management with no active issues to address at this time as the appropriate home medications have already been restarted by orthopedic surgery which is greatly appreciated. Thank you for allowing us to participate in the care of your patient. 1. OA; with chronic back pain and lumbar radiculopathy who was admitted to the orthopedic service of Dr. You earlier today when she underwent L4-S1 posterior spinal instrumented fusion with L2-L3 foraminal decompression through extraforaminal approach postoperative day #0 - Noted. Patient treated previously with IV dexamethasone and prophylactic cefazolin has been ordered. She has also been ordered ketorolac 15 mg IV every 6 hours as needed which will be continued. Finally, she has both morphine 2-4 mg IV every 2 hours plus oxycodone 2.5-5 mg every 4 hours as needed ordered for severe pain. 2. Essential Hypertension; on diltiazem - Continue current therapy with current blood pressure 132/78 mmHg. Give hydralazine IV as needed for systolic blood pressure greater than 160 mmHg 3. Morbid Obesity with a BMI of 40.2 this admission - Weight loss will be recommended. Check TSH. This complicates her case and may hamper recovery. 4. History of atrial fibrillation; on diltiazem and warfarin - Maintain current regimen and check PT/INR daily. 5. Hyperlipidemia; on pravastatin - Resume statin. 6. History of CAD - Noted. 7. History of Right-sided ER+ breast cancer; on anastrozole - Patient's anastrazole has already been ordered to be restarted in the AM. 8. History of neuropathy; on pregabalin - Resume pregabalin 150 mg PO BID with order already in place. 9. History of depression; on trazodone q. HS PRN, nortriptyline q. HS PRN, and Cymbalta - Home medications to be continued as previous. 10. History of renal calculi - Noted with no signs of recurrence at this time. 11. GERD; with history of gastritis on famotidine daily as needed - Resumption of prn famotidine daily has been ordered. 12. History of constipation; on docusate sodium twice daily - Two Senna BID ordered already. 13. DVT prophylaxis - Patient already on warfarin for #5 which will be continued with daily PT/INR pending to follow trend. Total time: Approximately (but not less than) 35 minutes. Charges/Coding Visit Charges Inpatient E&M: 60128 Subs Hosp L2
[2024-11-21] MEDS: 0.9% Saline Lock 10 ML Syringe IV (21:07)
[2024-11-21] MEDS: Pravastatin 80 MG Tablet PO (21:16)
[2024-11-21] MEDS: Methocarbamol 500 MG Tablet 1000 MG PO (21:16)
[2024-11-21] MEDS: traZODone 50 MG Tablet PO (21:16)
[2024-11-21] MEDS: Senna/Docusate Sodium 1 Tablet 2 TABLET PO (21:16)
[2024-11-21] MEDS: Pregabalin 75 MG Capsule 150 MG PO (21:17)
[2024-11-21] MEDS: Ensure Surgery 237 ML LIQUID PO (21:17)
[2024-11-22 00:55] LABS: Thyroid Stim Hormone (TSH) 0.808 uIU/mL (0.300-4.200)
[2024-11-22 02:00] VITALS: BP 116/68; PULSE 90; RESP 15; TEMP 36.6; O2SAT 96
[2024-11-22] MEDS: Ketorolac 15 MG/ML Vial IV (02:50)
[2024-11-22] MEDS: 0.9% Saline Lock 10 ML Syringe IV ×2 (02:50→05:43)
[2024-11-22 05:00] VITALS: RESP 15
[2024-11-22] MEDS: Cefazolin 2 GM in Syringe 10 ML IV (05:42)
[2024-11-22] MEDS: Acetaminophen 500 MG Tablet 1000 MG PO ×2 (05:46→13:56)
[2024-11-22 06:00] LABS: Hematocrit 33.9 % (37-47); Hemoglobin 10.9 g/dL (12.0-15.0); Mean Corp Hgb Conc 32.2 g/dL (32-36); Mean Corpuscular Hgb 28.8 pg (27.0-32.0); Mean Corpuscular Volume 89.7 fL (81-99); Mean Platelet Vol. 10.6 fl (6.2-12.0); Platelet Count 183 K/mm3 (150-450); RBC Distribution Width CV 13.1 % (11.6-14.6); RBC Distribution Width SD 42.8 fl (35.1-43.9); Red Blood Count 3.78 M/mm3 (4.2-5.4); White Blood Count 13.1 K/mm3 (4.4-11.0)
[2024-11-22 06:12] LABS: International Normalized Ratio 1.1; Prothrombin Time (Protime)PT. 14.3 SECONDS (11.7-14.9)
[2024-11-22 06:38] LABS: Anion Gap 8 (5-15); BUN 16 mg/dL (4-19); BUN/Creat Ratio 17.9 RATIO (10-20); Calcium,Total 8.2 mg/dL (7.6-11.0); Carbon Dioxide 26.6 mmol/L (21.0-32.0); Chloride 107 mmol/L (98-108); Creatinine, Serum 0.87 mg/dL (0.70-1.20); EST Glomerular Filtration Rate 68 (>60); Estimated Creatinine Clearance 66.82 ml/min (50-250); Glucose 162 mg/dL (70-99); Potassium 4.6 mmol/L (3.3-5.1); Sodium Level 141 mmol/L (133-145)
[2024-11-22 06:39] LABS: Hemoglobin A1c 5.8 % (<=5.6)
--- NOTE | 2024-11-22 06:53 | NURSING ---
pt ambulated with standard walker from her room down to the center and back. slow steady gait noted, pt asim well
--- NOTE | 2024-11-22 07:00 | RAD_ITS ---
PROCEDURE: LUMBAR SPINE 2 OR 3 VIEWS 11/22/2024 REASON FOR EXAM: S/P LUMBAR FUSION TECHNIQUE: 2 view(s) of the lumbar spine COMPARISON: 11/21/2024. FINDINGS: Mild osteopenia. S-shaped degenerative scoliosis. Unremarkable lumbar fusion metallic hardware at L4-L5 and L5-S1 levels. Unremarkable metallic hardware. Mildly exaggerated lumbar lordosis. Moderate diffuse spondylosis. Moderate amount of fecal residue in the large bowels. There are diffuse spondylotic changes. Findings are demonstrated to by diffuse disc space narrowing, osteophyte formation and degenerative endplate sclerosis. There is diffuse facet joint arthropathy with secondary bilateral neural foramina narrowing. No fracture or dislocation is seen. No aggressive lytic or blastic bony lesion is noted. RAD/Lumbar Spine 2 or 3 Views IMPRESSION: 1. Mild osteopenia. 2. S-shaped degenerative scoliosis. 3. Unremarkable lumbar fusion metallic hardware at L4-L5 and L5-S1 levels. 4. Unremarkable metallic hardware. 5. Mildly exaggerated lumbar lordosis. 6. Moderate diffuse spondylosis. 7. Moderate amount of fecal residue in the large bowels. Reading [facility] [address]
[2024-11-22 07:37] VITALS: O2SAT 93
[2024-11-22 07:48] VITALS: BP 112/55; PULSE 96; RESP 17; TEMP 37; O2SAT 96
[2024-11-22] MEDS: Ensure Surgery 237 ML LIQUID PO ×2 (08:28→11:43)
[2024-11-22] MEDS: Anastrozole 1 MG TABLET PO (08:28)
[2024-11-22] MEDS: DULoxetine Hcl 60 MG Capsule PO (08:29)
[2024-11-22] MEDS: Pregabalin 75 MG Capsule 150 MG PO (08:29)
[2024-11-22] MEDS: dilTIAZem CD 240 MG Capsule PO (08:29)
[2024-11-22] MEDS: Methocarbamol 500 MG Tablet 1000 MG PO ×2 (08:30→13:56)
[2024-11-22] MEDS: Meloxicam 15 MG Tablet PO (08:30)
[2024-11-22] MEDS: Sertraline 50 MG Tablet PO (08:31)
[2024-11-22] MEDS: Senna/Docusate Sodium 1 Tablet 2 TABLET PO (08:31)
--- NOTE | 2024-11-22 08:34 | NURSING ---
Pt assisted to bathroom, voided and then walked to chair. Sitting up in chair at this time. Pt informed this RN that she did pass flatus this morning.
--- NOTE | 2024-11-22 13:09 | PN.ORTHO_ITS ---
Subjective Subjective Postop day 1 L4-S1 fusion with L2-3 microdiscectomy. Patient is doing well postoperatively with her pain well-managed. Patient has walked with therapy who is cleared her for home discharge. Patient has passed gas and has tolerated a solid meal. Seen with Dr. You. Objective Data Objective Data Vital Signs: Vital Signs Temp Pulse Resp BP Pulse Ox O2 Del Method O2 Flow Rate 98.6 F 96 17 112/55 L 96 Nasal Cannula 1 11/22/24 07:48 11/22/24 07:48 11/22/24 07:48 11/22/24 07:48 11/22/24 07:48 11/22/24 07:48 11/22/24 07:48 Oxygen Flow Rate (L/min) 1 Oxygen Delivery Method Nasal Cannula Weight: 241 lb 10.026 oz Body Mass Index (BMI) 38.9 Intake & Output: Intake and Output for Last 24 Hours 11/20/24 11/21/24 11/22/24 23:59 23:59 23:59 Intake Total 2240 / 2240 320 / 320 Output Total 550 / 550 400 / 400 Balance 1690 / 1690 -80 / -80 Lab / Micro Data 11/22/24 05:31 11/22/24 05:31 Labs: Laboratory Results - last 24 hr 11/21/24 21:45: TSH 0.808 11/22/24 05:31: WBC 13.1 H, RBC 3.78 L, Hgb 10.9 L, Hct 33.9 L, MCV 89.7, MCH 28.8, MCHC 32.2, RDW Std Deviation 42.8, RDW Coeff of Leno 13.1, Plt Count 183, MPV 10.6, PT 14.3, INR 1.1, Sodium 141, Potassium 4.6, Chloride 107, Carbon Dioxide 26.6, Anion Gap 8, BUN 16, Creatinine 0.87, Estim Creat Clear Calc 66.82, Est GFR (MDRD) Non-Af 68, BUN/Creatinine Ratio 17.9, Glucose 162 H, H emoglobin A1c 5.8 H, Calcium 8.2 Micro: Microbiology 11/08/24 12:15 Swab (Method) Nasal Screen MRSA/MSSA - Final Radiography Diagnostic Testing: Radiology Impression Lumbar Spine X-Ray 11/21/24 07:55 IMPRESSION: Intraoperative imaging provided for fusion at the L4-L5 and L5-S1 levels with prosthetic disc placement. Reading Location: [facility] Lumbar Spine X-Ray 11/22/24 07:00 IMPRESSION: 1. Mild osteopenia. 2. S-shaped degenerative scoliosis. 3. Unremarkable lumbar fusion metallic hardware at L4-L5 and L5-S1 levels. 4. Unremarkable metallic hardware. 5. Mildly exaggerated lumbar lordosis. 6. Moderate diffuse spondylosis. 7. Moderate amount of fecal residue in the large bowels. [facility] Narrative Neurological examination of the lower extremity shows 5X5 power. Normal sensation across all dermatomes. Physical examination of the back and belly shows Tegaderm and gauze intact and CDI. Const alert, oriented x3 and no apparent distress Assessment & Plan Assessment/Plan (1) Status post lumbar spinal fusion: PLAN: Plan Postop day 1 L4-S1 fusion with L2-3 microdiscectomy. Obtained reviewed x-rays today which show hardware and bone graft in good position. PT/OT cleared for home discharge. Patient is doing well with her pain well-managed. Patient has passed gas and has tolerated a solid meal. Reviewed restrictions no bending, lifting, twisting. Educated and reviewed the use of the incentive spirometer. She will follow-up 2 weeks in the clinic. Patient is in agreement.
--- NOTE | 2024-11-22 13:32 | CASEMGMT ---
ELOISE SZYMASNKI Assessment: Face to Face with pt for initial transition planning/care coordination assessment. ELOISE SZYMANSKI introduced self and role at [facility], pt voices understanding and consents to assessment. Pt is A&O x4 and answers all questions appropriately at this time. Pt sitting up in chair in no distress. Care providers, pharmacy, and demographics verified/updated. Admitting Dx: 360 lumbar fusion Strata Score: 1 PCP:César Specialists:jillian You Pharmacy: [facility] Insurance: [facility] Prescription Benefit: yes LNOK: Mabel Echo, friend; Norma Fang, sister Living Arrangements: Pt lives alone in a condo with a ramp to enter. Pt reports she was I in ADLs and IADLs prior to surgery. Pt denies concerns at home. Transportation: Pt drives self and denies concerns with transportation. Pt family/friend will transport until pt can drive again. DME:FWW, toilet side rails, rollator, [facility] HHC/SNF: Denies hx of [facility], has been to [facility] Pt states no concerns with going home at time of dc. Pt states no further concerns/needs. CM to follow. Advised pt to ask CM if any further questions/concerns/needs arise, voices understanding. Pt Goal: Home Plan: Home Kelvin NAVAS CM
[2024-11-22 14:00] VITALS: BP 117/70; PULSE 97; RESP 18; TEMP 36.4; O2SAT 94
--- NOTE | 2024-11-22 14:10 | PHA.DC.MC.R ---
Pharmacy [facility] Pharmacy Service has performed discharge medication reconciliation and counseling for this patient. 1. ACETAMINOPHEN 500MG PO Q6 2. METHOCARBAMOL 750MG PO TID PRN MUSCLE PAIN/SPASMS 3. OXYCODONE 2.5-5MG PO Q6H PRN PAIN 4. SENNA/DOCUSATE 2T PO BID PRN CONSTIPATION 5. RESUME WARFARIN 11/24 The patient's discharge medication list was reviewed for discrepancies and discrepancies were resolved. The patient was counseled on the following discharge medications and changes in medications for homegoing were reviewed. The Reason for Use, instructions for use, and potential side effects were reviewed for all new medications. The patient's questions regarding all of their medications were answered. The patient was able to verbally demonstrate an understanding of their discharge medications. Patient counseled by practice or student teacher, Sina. Medications at Discharge Home Medications diltiazem HCl 240 mg capsule,extended release 24 hr, controlled 240 mg PO DAILY BP 08/27/20 pravastatin 80 mg tablet 80 mg PO DAILY CHOLESTEROL 08/27/20 sertraline 50 mg tablet 50 mg PO DAILY DEPRESSION 08/27/20 trazodone 50 mg tablet 50 mg PO QHS SLEEP 08/27/20 magnesium 250 mg tablet 500 mg PO DAILY SUPPLEMENT 09/15/20 multivitamin 1 each PO DAILY SUPPLEMENT 09/15/20 nortriptyline 25 mg capsule 25 mg PO DAILY PRN sleep 08/30/22 pregabalin 75 mg capsule 150 mg PO BID PAIN 08/30/22 calcium 500 mg tablet 1,200 mg PO DAILY SUPPLEMENT 04/21/23 cholecalciferol (vitamin D3) 125 mcg (5,000 unit) tablet (Vitamin D3) 125 mcg PO DAILY SUPPLEMENT 11/29/23 warfarin 1 mg tablet 2 mg PO SUTUTHSA BLOOD THINNER 11/29/23 Held on 11/22/24. Instructions: Resume on 11/24/24. warfarin 3 mg tablet 3 mg PO .COMPLEX BLOOD THINNER 11/29/23 Held on 11/22/24. Instructions: Resume on 11/24/24. anastrozole 1 mg tablet 1 mg PO DAILY BREAST CANCER #90 tabs 09/19/24 Lactobacillus acidophilus 10 billion cell capsule (NewFlora) 100 mmu cells PO DAILY SUPPLEMENT 11/07/24 docusate sodium 100 mg capsule (Col-Rite) 200 mg PO BID STOOL SOFTENER 11/07/24 duloxetine 60 mg capsule,delayed release (Cymbalta) 60 mg PO DAILY DEPRESSION 11/07/24 famotidine 20 mg tablet (Acid Controller) 20 mg PO DAILY PRN GERD 11/07/24 acetaminophen 500 mg tablet 500 mg PO Q6H #30 tabs 11/22/24 methocarbamol 500 mg tablet 750 mg (1.5 x 500 mg) PO TID PRN pain/spasms #60 tabs 11/22/24 oxycodone 5 mg tablet 2.5 - 5 mg (0.5 - 1 x 5 mg) PO Q6H PRN pain 7 days #28 tabs 11/22/24 sennosides 8.6 mg-docusate sodium 50 mg tablet (Stimulant Laxative Plus) 2 tab PO BID PRN constipation #30 tabs 11/22/24
== END 2024-11-22 14:58 | disposition home or self-care (01) | DRG 427 ==
PROVIDERS: Anesthesiology; Internal Medicine; Student in an Organized Health Care Education/Training Program; Admitting Provider Orthopaedic Surgery Orthopaedic Surgery of the Spine; PCP Family Medicine; Referring Provider Orthopaedic Surgery Orthopaedic Surgery of the Spine; Visit Provider Internal Medicine
PROC: 0SG00A0 Fusion of Lumbar Vertebral Joint with Interbody Fusion Device, Anterior Approach, Anterior Column, Open Approach (ICD-10-PCS; principal; 2024-11-21 07:00)
DX: M48.062 Spinal stenosis, lumbar region with neurogenic claudication (principal); Z68.41 Body mass index [BMI] 40.0-44.9, adult; I48.20 Chronic atrial fibrillation, unspecified; M41.56 Other secondary scoliosis, lumbar region; I73.9 Peripheral vascular disease, unspecified; I10 Essential (primary) hypertension; M51.16 Intervertebral disc disorders with radiculopathy, lumbar region; E16.2 Hypoglycemia, unspecified; E78.00 Pure hypercholesterolemia, unspecified; I25.10 Atherosclerotic heart disease of native coronary artery without angina pectoris; M51.26 Other intervertebral disc displacement, lumbar region; M47.26 Other spondylosis with radiculopathy, lumbar region; M43.19 Spondylolisthesis, multiple sites in spine; E66.01 Morbid (severe) obesity due to excess calories; K21.9 Gastro-esophageal reflux disease without esophagitis; Z96.643 Presence of artificial hip joint, bilateral; Z79.01 Long term (current) use of anticoagulants; Z82.49 Family history of ischemic heart disease and other diseases of the circulatory system; M85.88 Other specified disorders of bone density and structure, other site; Z88.8 Allergy status to other drugs, medicaments and biological substances; Z88.1 Allergy status to other antibiotic agents; Z79.02 Long term (current) use of antithrombotics/antiplatelets; Z79.899 Other long term (current) drug therapy
CPT/HCPCS: 36415; 72100; 76000; 80048; 82962; 83036; 83735; 84443; 85025; 85027; 85610; 86703; 86706; 86708; 86803; 86850; 86900; 86901; 87077; 87081; 93005; 94668; 97162; 97166; A4648; C1713; A4216; J2405; J3475

== ENCOUNTER 2024-12-17 11:13 | Outpatient (RCR) | payer MEDICARE, OTHER, SELFPAY ==
[2020-09-11 14:08] VITALS: BMI 31.0
[2024-12-17 12:47] LABS: International Normalized Ratio 1.9; Prothrombin Time (Protime)PT. 21.7 SECONDS (11.7-14.9)
== END 2024-12-17 18:00 | disposition home or self-care (01) ==
LOC: MTLAB 11:13
PROVIDERS: PCP Family Medicine; Referring Provider Family Medicine; Visit Provider Family Medicine
DX: I48.91 Unspecified atrial fibrillation (principal)
CPT/HCPCS: 36415; 85610

== ENCOUNTER → 2025-01-09 | Outpatient (CLI) | payer MEDICARE, OTHER, SELFPAY ==
[2020-09-11 14:08] VITALS: BMI 31.0
--- NOTE | 2025-01-09 14:53 | VDLE_ITS ---
Reason For Study Reason For Study: Right leg swelling RIGHT LEFT GSV is normal. CFV is compressible, spontaneous, phasic, competent, CFV is compressible, spontaneous, phasic, competent and demonstrates normal augmentation. and demonstrates normal augmentation. FV is compressible, spontaneous, phasic, competent and demonstrates normal augmentation. POP V is compressible, spontaneous, phasic, competent and demonstrates normal augmentation. T/P Trunk is compressible. PTV is compressible. RT PerV is compressible. Procedure This is a venous duplex using B-mode, color flow and spectral Doppler. Exam performed in department. A preliminary report was called and/or faxed to Dr. Lindsey. VL/Venous Duplex US, Unilateral Interpretation Summary Deep veins of the right lower extremity are patent and compressible segmentally . There is no evidence of right lower extremity deep vein thrombosis. Valvular competence appears intact within the p roximal deep venous system on the right . The right great saphenous vein appears patent and compressible segmentally. The left common femoral vein is patent and compressible . Ordering Physician: Meliton Lindsey Referring Physician: Meliton Lindsey Performed By: Fatimah Gautam RVT
== END | disposition home or self-care (01) ==
LOC: CVS 14:51
PROVIDERS: PCP Family Medicine; Referring Provider Family Medicine; Visit Provider Family Medicine
DX: M79.89 Other specified soft tissue disorders (principal)
CPT/HCPCS: 93971

== ENCOUNTER 2025-01-21 11:08 | Outpatient (RCR) | payer MEDICARE, OTHER, SELFPAY ==
[2020-09-11 14:08] VITALS: BMI 31.0
[2025-01-21 13:09] LABS: International Normalized Ratio 2.4; Prothrombin Time (Protime)PT. 26.8 SECONDS (11.7-14.9)
== END 2025-01-21 18:00 | disposition home or self-care (01) ==
LOC: MTLAB 11:08
PROVIDERS: PCP Family Medicine; Referring Provider Family Medicine; Visit Provider Family Medicine
DX: I48.91 Unspecified atrial fibrillation (principal)
CPT/HCPCS: 36415; 85610

== ENCOUNTER 2025-04-09 12:00 | Outpatient (RCR) | payer MEDICARE, OTHER, SELFPAY ==
[2020-09-11 14:08] VITALS: BMI 31.0
--- NOTE | 2024-12-19 14:48 | HP.PTEVAL ---
Patient's Visit Information Visit Information Visit Information: HOLLI SEVILLA is a 79 year old F referred to Physical Therapy by ROMIE Tran with a diagnosis of L/S fusion 11/21/24. Date of Evaluation: 12/19/24 Physical Therapist: Vishnu De La Cruz, PT, ATC Visit Plan Frequency: 2x /Week Duration: 4-6 Weeks Plan: B LE strengthening, core strengthening, balance and proprio, gait training, stair negotiation, nustep, and HEP Subjective Subjective: DOS: 11/21/24. Pt had a L/S fusion surgery performed at this time. Pt reports she is really glad she had the surgery performed. Pt reports she had pain and numbness in B LE's prior to surgery, which is now much better than it was. Pt notes she is going through the tooth ache phase, so she does still having some pain at this time. Pt reports she never used an AD prior to the LBP episode started, which really limited her ability to move her legs well, or perform prolonged standing/ambulation well. Pt reports she continues to have sleep difficulty at this time secondary to pain. Pt reports she likes to go on walks, and cant wait to be able to do that again. Pt reports her LBP is 6/10 at this time. Pain LBP: Pain Intensity (Out of 10): 6 Pain Intensity Range: 6 Objective Objective: Neuro: B LE sensation is WNL to light tough. MMT: B LE's are grossly 4/5 throughout when compared bilaterally Gait: Pt is able to ambulate 340 feet with WW until needing to rest secondary to pain. TU seconds sit to stands: 7 reps Balance/Special Test Scores Oswestry Low Back Score: 29 Goals Goal 1:: Decrease LBP x 50% to aid with sleep Goal Time Frame: 4-6 Weeks Goal 2:: Increase B LE strength x 1 grade to aid with stair negotiation Goal Time Frame: 4-6 Weeks Goal 3:: Pt will ambulate 1000 feet with LRD to aid with community ambulation Goal Time Frame: 4-6 Weeks Goal 4:: I with HEP Goal Time Frame: 4-6 Weeks Rehabilitation Potential Physical Therapy Diagnosis: Pt has LBP, B LE weakness, and limited gait ability secondary to L/S fusion Rehabilitation Potential: Good Anticipated Interventions Patient/Client Instruction: Educate patient on: Condition and Plan of Care For the Purpose of:: To improve self management Therapeutic Exercise to Include: Strength training, Endurance training, Balance training, Gait and locomotor training, Active ROM and Dynamic Lumbar Stabilization For the Purpose of:: To decrease pain, To improve muscle performance and motor function and To increase tolerance to activity/condition/position Text: Thank you for the opportunity to evaluate your patient. For Medicare and Medicare HMO plans, please review the plan of care and approve it. It will need to be FAXED BACK to us at [phone] for Medicare purposes. For Medicare only, by signing this I certify the plan of care. Please let me know if there are questions or concerns regarding this plan of care. Physician Signature: Date:
--- NOTE | 2025-01-17 13:51 | HP.PTREVAL ---
Re-Evaluation Intro: ROMIE Tran, It has been my pleasure to treat HOLLI SEVILLA over the last 9 visits for L/S fusion 11/21/24. Please see the progress note below for an update on the physical therapy plan of care! Subjective Subjective: I still have saddle pain at this time. Objective Objective/Function: LBP (saddle pain) ranges from 2-6/10 MMT: L knee flex= 32, ext= 57 #F; R knee flex= 29, ext= 27 #F Pt was able to ambulate 340 feet with no AD until needing to rest secondary to fatigue Pt is making significant progress at this time. Still lacks functional strength and mobility at this time. Plan Plan Plan: 01/17/25- Cont with B LE strengthening, core strengthening, balance and proprio, gait training, stair negotiation, nustep, and HEP Balance/Gait/Functional tests Balance/Special Test Scores Oswestry Low Back Score: 8 Goals Goals Goal 1:: Decrease LBP x 50% to aid with sleep Goal Time Frame: 4-6 Weeks Goal Progress: Progressing Goal 2:: Increase B LE strength x 1 grade to aid with stair negotiation Goal Time Frame: 4-6 Weeks Goal Progress: Progressing Goal 3:: Pt will ambulate 1000 feet with LRD to aid with community ambulation Goal Time Frame: 4-6 Weeks Goal Progress: Progressing Goal 4:: I with HEP Goal Time Frame: 4-6 Weeks Anticipated Interventions Anticipated Interventions Patient/Client Instruction: Educate patient on: Condition and Plan of Care For the Purpose of:: To improve self management Therapeutic Exercise to Include: Strength training, Endurance training, Balance training, Gait and locomotor training, Active ROM and Dynamic Lumbar Stabilization For the Purpose of:: To decrease pain, To improve muscle performance and motor function and To increase tolerance to activity/condition/position Re-Evaluation Ending Re-evaluation ending: Please do not hesitate to contact me at [phone] by phone or if you have questions or concerns regarding this new plan of care! Sincerely, Vishnu De La Cruz, PT, ATC
--- NOTE | 2025-02-15 14:32 | HP.PTREVAL ---
Re-Evaluation Intro: ROMIE Tran, It has been my pleasure to treat HOLLI SEVILLA over the last 17 visits for L/S fusion 11/21/24. Please see the progress note below for an update on the physical therapy plan of care! Subjective Subjective: My back continues to feel better, My knees are sore Objective Objective/Function: 3/10 LBP today Pt is able to ambulate 340 feet with no AD MMT: R hip flex, knee ext, and knee flex = 4/5. All other B LE's are 5/5 throughout Unable to assess stairs secondary to knee pain Pt is still limited mostly with pain in her knees at this time Plan Plan Plan: Attempt aquatic therapy at this time to assess if patients tolerance for exercises increases in this environment. Balance/Gait/Functional tests Balance/Special Test Scores Oswestry Low Back Score: 21 Goals Goals Goal 1:: Decrease LBP x 50% to aid with sleep Goal Time Frame: 4-6 Weeks Goal Progress: Progressing Goal 2:: Increase B LE strength x 1 grade to aid with stair negotiation Goal Time Frame: 4-6 Weeks Goal Progress: Progressing Goal 3:: Pt will ambulate 1000 feet with LRD to aid with community ambulation Goal Time Frame: 4-6 Weeks Goal Progress: Progressing Goal 4:: I with HEP Goal Time Frame: 4-6 Weeks Anticipated Interventions Anticipated Interventions Patient/Client Instruction: Educate patient on: Condition and Plan of Care For the Purpose of:: To improve self management Therapeutic Exercise to Include: Strength training, Endurance training, Balance training, Gait and locomotor training, Active ROM and Dynamic Lumbar Stabilization For the Purpose of:: To decrease pain, To improve muscle performance and motor function and To increase tolerance to activity/condition/position Re-Evaluation Ending Re-evaluation ending: Please do not hesitate to contact me at [phone] by phone or if you have questions or concerns regarding this new plan of care! Sincerely, Vishnu De La Cruz, PT, ATC
--- NOTE | 2025-03-12 14:12 | HP.PTREVAL ---
Re-Evaluation Intro: ROMIE Tran, It has been my pleasure to treat HOLLI SEVILLA over the last 24 visits for L/S fusion 11/21/24. Please see the progress note below for an update on the physical therapy plan of care! Subjective Subjective: I feel like I am getting better in every way with the exception of LBP Objective Objective/Function: LBP ranges from 5-7/10 B LE strength is 5/5 with exception to R knee flex= 4/5 Pt is able to ambulate with rollator 680 feet until needing to rest secondary to pain Pt is showing excellent progress in all goals with exception to pain Plan Plan Plan: 03/12/25- Continue with aqautic therapy for core, LE strengthening Balance/Gait/Functional tests Balance/Special Test Scores Oswestry Low Back Score: 14 Goals Goals Goal 1:: Decrease LBP x 50% to aid with sleep Goal Time Frame: 4-6 Weeks Goal Progress: Not Progressing Goal 2:: Increase B LE strength x 1 grade to aid with stair negotiation Goal Time Frame: 4-6 Weeks Goal Progress: Progressing Goal 3:: Pt will ambulate 1000 feet with LRD to aid with community ambulation Goal Time Frame: 4-6 Weeks Goal Progress: Progressing Goal 4:: I with HEP Goal Time Frame: 4-6 Weeks Goal Progress: Progressing Anticipated Interventions Anticipated Interventions Patient/Client Instruction: Educate patient on: Condition and Plan of Care For the Purpose of:: To improve self management Therapeutic Exercise to Include: Strength training, Endurance training, Balance training, Gait and locomotor training, Active ROM and Dynamic Lumbar Stabilization For the Purpose of:: To decrease pain, To improve muscle performance and motor function and To increase tolerance to activity/condition/position Re-Evaluation Ending Re-evaluation ending: Please do not hesitate to contact me at [phone] by phone or if you have questions or concerns regarding this new plan of care! Sincerely, Vishnu De La Cruz, PT, ATC
--- NOTE | 2025-04-09 13:56 | HP.PTDCSUM ---
Discharge Summary D/C summary: It has been my pleasure to treat HOLLI SEVILLA referred by ROMIE Tran, with the diagnosis of L/S fusion 11/21/24 for a total of 32 visit(s). Discharge Date: Please see the following information for a summary of their discharge status. Subjective Subjective: I have all my exercises I need. I am still in pain Pain LBP: Pain Intensity (Out of 10): 3 Overall Improvement % Improvement: 50 Objective Objective/Function: LBP ranges from 3-7/10 Pt is I with HEP MMT: B hip flex and knee flex= 4-/5. All other B LE MMT 5/5 throughout Gait: Pt was able to ambulate 680 feet with no AD until needing to rest. Pt has shown excellent progress at this time with gait and LE strength. Goals Goal 1:: Decrease LBP x 50% to aid with sleep Goal Progress: Not Progressing Goal 2:: Increase B LE strength x 1 grade to aid with stair negotiation Goal Progress: Progressing Goal 3:: Pt will ambulate 1000 feet with LRD to aid with community ambulation Goal Progress: Progressing Goal 4:: I with HEP Goal Progress: Goal Met Plan Plan: Discharge to HEP D/C Information d/c sentence: If there are questions or concerns regarding this patient's physical therapy, please feel free to call me at [phone]. Thank you for the referral of this patient. Sincerely, Vishnu De La Cruz, PT, ATC Balance/Gait/Functional tests Balance/Special Test Scores Oswestry Low Back Score: 14 Improvement % Improvement: 50
== END 2025-04-09 19:00 | disposition home or self-care (01) ==
LOC: PT 12:00
PROVIDERS: PCP Family Medicine; Referring Provider Student in an Organized Health Care Education/Training Program; Visit Provider Student in an Organized Health Care Education/Training Program
DX: Z98.1 Arthrodesis status (principal)
CPT/HCPCS: 97110; 97113; 97161; 97530

== ENCOUNTER → 2025-04-15 | Outpatient (CLI) | payer MEDICARE, OTHER, SELFPAY ==
[2020-09-11 14:08] VITALS: BMI 31.0
--- NOTE | 2025-04-15 09:40 | NM_ITS ---
PROCEDURE: BONE SCAN WHOLE BODY 04/15/2025 REASON FOR EXAM: BREAST CA/JELEVATED TUMOR MARKERS TECHNIQUE: Procedure Code: NMBO Modality: NM Procedure: BONE SCAN WHOLE BODY delayed imaging of the whole-body after radiopharmaceutical administration RADIOPHARMACEUTICAL: 27 mCi Technetium-99m MDP IV COMPARISON: February 19, 2025 x-ray FINDINGS: There is moderate increased radiotracer activity in the upper lumbar region, right greater than left, which corresponds to degenerative change in the recent x-ray. There is moderate activity in the lower lumbar region associated with hardware. Photopenic regions are noted consistent with bilateral hip prostheses. There is marked increased radiotracer activity in the medial compartment of the right and left knee, with a degenerative pattern. There is moderate increased radiotracer activity at the right and left shoulder, degenerative pattern. NM/Bone Scan Whole Body IMPRESSION: Degenerative pattern of radiotracer activity, without the typical findings to s uggest bony metastatic disease. Reading Location: [facility]
== END | disposition home or self-care (01) ==
LOC: NM 09:40
PROVIDERS: PCP Family Medicine; Referring Provider Internal Medicine Medical Oncology; Visit Provider Internal Medicine Medical Oncology
DX: C50.111 Malignant neoplasm of central portion of right female breast (principal); R97.8 Other abnormal tumor markers
CPT/HCPCS: 78306; A9503

== ENCOUNTER → 2025-04-16 | Outpatient (CLI) | payer MEDICARE, OTHER, SELFPAY ==
[2020-09-11 14:08] VITALS: BMI 31.0
[2025-04-16 10:52] LABS: Prothrombin Time (Protime)PT. 14.9 SECONDS (11.7-14.9)
== END | disposition home or self-care (01) ==
PROVIDERS: PCP Family Medicine; Referring Provider Anesthesiology Pain Medicine; Visit Provider Anesthesiology Pain Medicine
DX: Z79.01 Long term (current) use of anticoagulants (principal)
CPT/HCPCS: 36415; 85610

== ENCOUNTER → 2025-04-18 | Outpatient (CLI) | payer MEDICARE, OTHER, SELFPAY ==
[2020-09-11 14:08] VITALS: BMI 31.0
--- NOTE | 2025-04-18 12:33 | CT_ITS ---
PROCEDURE: CT CHEST, ABD, PEL W/CONTRAST 04/18/2025 REASON FOR EXAM: BREAST CA/ELEVATED TUMOR MARKERS-IV ONLY TECHNIQUE: Chest, abdomen and pelvis CT with intravenous contrast. Coronal and Sagittal reconstruction series were provided. One or more dose reduction techniques were used (e.g., Automated exposure control, adjustment of the mA and/or kV according to patient size, use of iterative reconstruction technique. PATIENT PREPARATION: Per protocol CONTRAST: Isovue 370 VOLUME: 99mL RADIATION DOSE SUMMARY: CTDlvol: 29.63 mGy DLP: 2252.74 mGycm COMPARISON: CT abdomen and pelvis March 30, 2024. FINDINGS: CT CHEST: Visualized neck: Bilateral indeterminate thyroid cystic nodules with the largest in the left thyroid lobe measures 1.7 cm. Lymph nodes: No lymphadenopathy. Heart and Vasculature: Moderate cardiomegaly. Atherosclerotic calcifications of the coronary arteries. Lungs and Airways: Diffuse ground-glass densities suggestive of CHF. Pleura: No pleural effusion or pneumothorax. Bones: No acute or suspicious bony abnormalities. Chest wall: Post biopsy changes in the right breast. CT ABDOMEN/PELVIS: Liver: Stable multiple liver cysts with the largest measures 5.6 cm at the left hepatic lobe. Gallbladder: Status post cholecystectomy. Spleen: Unremarkable. Pancreas: Unremarkable. Adrenals: Unremarkable. Kidneys: Punctate stones in the right more than left kidney with the largest measures 5 mm at the lower pole of the right kidney. No left kidney stones. Multiple simple kidney cysts with the largest measures 1.2 cm at the lower pole of the right kidney. No hydronephrosis. Bladder: Limited evaluation due to streak artifact from bilateral hip prosthesis. Otherwise unremarkable. Reproductive Organs: Limited evaluation due to streak artifact from metallic hardware. Otherwise unremarkable. Bowel: Sigmoid colon diverticulosis. No evidence of acute diverticulitis. Appendix: Unremarkable. Lymph nodes: No lymphadenopathy. Vasculature: No aneurysm. Peritoneum / Retroperitoneum: No free air or free fluid. Bones: No acute bony abnormalities. Status post posterior fusion of L4, L5 and S1. Status post bilateral hip replacement. CT/CT Chest, Abd, Pel w/Contrast IMPRESSION: Bilateral indeterminate thyroid cystic nodules with the largest in the left thy roid lobe measures 1.7 cm. Stable multiple liver cysts with the largest measures 5.6 cm at the left hepati c lobe. Otherwise, no evidence of recurrent tumor or metastasis. Multiple bilateral kidney stones. No hydronephrosis. Reading Location: [id number]
== END | disposition home or self-care (01) ==
LOC: CT 12:32
PROVIDERS: PCP Family Medicine; Referring Provider Internal Medicine Medical Oncology; Visit Provider Internal Medicine Medical Oncology
DX: C50.211 Malignant neoplasm of upper-inner quadrant of right female breast (principal); R97.8 Other abnormal tumor markers
CPT/HCPCS: 71260; 74177; Q9967; A4216

== ENCOUNTER 2025-04-29 08:48 | Outpatient (RCR) | payer MEDICARE, OTHER, SELFPAY ==
[2020-09-11 14:08] VITALS: BMI 31.0
[2025-04-29 10:43] LABS: Prothrombin Time (Protime)PT. 40.1 SECONDS (11.7-14.9)
== END 2025-04-30 18:00 | disposition home or self-care (01) ==
LOC: MTLAB 08:48
PROVIDERS: PCP Family Medicine; Referring Provider Family Medicine; Visit Provider Family Medicine
DX: I48.91 Unspecified atrial fibrillation (principal); Z92.29 Personal history of other drug therapy
CPT/HCPCS: 36415; 85610

== ENCOUNTER 2025-05-01 09:06 | Outpatient (RCR) | payer MEDICARE, OTHER, SELFPAY ==
[2020-09-11 14:08] VITALS: BMI 31.0
[2025-05-01 10:51] LABS: Prothrombin Time (Protime)PT. 31.0 SECONDS (11.7-14.9)
== END 2025-05-01 18:00 | disposition home or self-care (01) ==
LOC: MTLAB 09:06
PROVIDERS: PCP Family Medicine; Referring Provider Family Medicine; Visit Provider Family Medicine
DX: Z92.29 Personal history of other drug therapy (principal); I48.91 Unspecified atrial fibrillation
CPT/HCPCS: 36415; 85610

== ENCOUNTER 2025-06-05 10:50 | Outpatient (RCR) | payer MEDICARE, OTHER, SELFPAY ==
[2020-09-11 14:08] VITALS: BMI 31.0
[2025-06-05 12:37] LABS: Prothrombin Time (Protime)PT. 29.9 SECONDS (11.7-14.9)
== END 2025-06-29 18:00 | disposition home or self-care (01) ==
LOC: MTLAB 10:50
PROVIDERS: PCP Family Medicine; Referring Provider Family Medicine; Visit Provider Family Medicine
DX: I48.91 Unspecified atrial fibrillation (principal)
CPT/HCPCS: 36415; 85610

== ENCOUNTER → 2025-06-19 | Outpatient (CLI) | payer MEDICARE, OTHER, SELFPAY ==
[2020-09-11 14:08] VITALS: BMI 31.0
--- NOTE | 2025-06-19 07:52 | MRI_ITS ---
PROCEDURE: SPINE LUMBAR W/WO CONTRAST 06/19/2025 REASON FOR EXAM: RIGHT GROIN PAIN WORSENING, STENOSIS, HX OF FUSION Back pain. TECHNIQUE: Procedure Code: [id number] Modality: MR Procedure: SPINE LUMBAR W/WO CONTRAST Multiplanar and multisequence images were obtained without and with intravenous gadolinium-based contrast administration. CONTRAST: Clariscan VOLUME: 20 mL COMPARISON: None. FINDINGS: T11-L1: Vertebral bodies: Negative. Disk Space: Mild degenerate disc disease. Negative for Modic changes. Facet Joints: Negative for bilateral facet joint hypertrophy. Neural foramina: Negative for neural foraminal narrowing Spinal Canal: Negative for central spinal narrowing. L1-2: Vertebral bodies: Mild anterior osteophyte formation. Disk Space: Disc desiccation moderate loss of disc height. Central zone disc protrusion asymmetric to the left. Facet Joints: Mild bilateral facet joint hypertrophy. Neural foramina: Mild left neural foraminal narrowing Spinal Canal: Slight left subarticular zone narrowing. Negative for central spinal narrowing. L2-3: Vertebral bodies: Anterior osteophyte formation. Disk Space: Disc desiccation with severe loss of disc height. Left central zone disc protrusion with slight inferior extension. Facet Joints: Moderate bilateral bilateral facet joint hypertrophy. Neural foramina: Severe right and moderate severe left neural foraminal narrowing Spinal Canal: Moderate left and mild right subarticular zone narrowing. [id number] left central spinal narrowing. L3-4: Vertebral bodies: Negative. Disk Space: Negative. Negative for Modic changes. Facet Joints: Moderate bilateral facet joint hypertrophy. Neural foramina: Mild bilateral neural foraminal narrowing Spinal Canal: Negative for subarticular zone narrowing. Negative for central spinal narrowing. L4-5: Vertebral bodies: Pedicle screws and rods with interbody fusion. Disk Space: Fused. Scratch Facet Joints: Moderate bilateral facet joint hypertrophy. Neural foramina: Mild neural foraminal narrowing Spinal Canal: Negative for subarticular zone narrowing. Negative for central spinal narrowing. L5-S1: Vertebral bodies: Pedicle screws and rods with interbody fusion Disk Space: Fused Facet Joints: Moderate bilateral facet joint hypertrophy. Neural foramina: Mild bilateral neural foraminal narrowing Spinal Canal: Negative for subarticular zone narrowing. Negative for central spinal narrowing. Vertebrae: Normal bone marrow signal. Conus Medullaris: Spinal cord is normal and ends at L1-L2. No abnormal enhancement. Imaged kidneys aorta otherwise negative. The remainder of the exam negative. MRI/Spine Lumbar W/WO Contrast IMPRESSION: Previous surgical changes L4-S1. Degenerate disc disease overall most prominent to the left at L2-L3 associated with severe right and moderate severe left neural foraminal narrowing as well as moderate left subarticular zone narrowing and mi [id number] left central spinal canal narrowing. Significant but lesser disease L3-L4, L4-5, and L5-S1 as above Reading Location: [id number]
== END | disposition home or self-care (01) ==
LOC: OPMRI 07:51
PROVIDERS: PCP Family Medicine; Referring Provider Student in an Organized Health Care Education/Training Program; Visit Provider Student in an Organized Health Care Education/Training Program
DX: M48.062 Spinal stenosis, lumbar region with neurogenic claudication (principal); Z98.1 Arthrodesis status; M51.369 Other intervertebral disc degeneration, lumbar region without mention of lumbar back pain or lower extremity pain
CPT/HCPCS: 72158; A9575

== ENCOUNTER → 2025-06-30 | Outpatient (CLI) | payer MEDICARE, OTHER, SELFPAY ==
[2020-09-11 14:08] VITALS: BMI 31.0
== END | disposition home or self-care (01) ==
LOC: LABSPEC 07-01 08:23
PROVIDERS: PCP Family Medicine; Visit Provider Nurse Practitioner Family
DX: R82.90 Unspecified abnormal findings in urine (principal)
CPT/HCPCS: 87077; 87086; 87088; 87186

== ENCOUNTER 2025-07-02 10:05 | Outpatient (RCR) | payer MEDICARE, OTHER, SELFPAY ==
[2020-09-11 14:08] VITALS: BMI 31.0
[2025-07-02 12:27] LABS: Prothrombin Time (Protime)PT. 23.2 SECONDS (11.7-14.9)
== END 2025-07-02 18:00 | disposition home or self-care (01) ==
LOC: MTLAB 10:05
PROVIDERS: PCP Family Medicine; Referring Provider Family Medicine; Visit Provider Family Medicine
DX: I48.91 Unspecified atrial fibrillation (principal)
CPT/HCPCS: 36415; 85610